=== PATIENT | male | born 1960 | race Caucasian/White ===

== ENCOUNTER 2021-05-09 08:23 | Outpatient (CLI) | payer OTHER, SELFPAY ==
[2021-05-09 08:59] LABS: Basophils Absolute Auto 0.1 K/mm3 (0.0-0.1); Basophils Percent Auto 1.3 % (0.2-1.2); Eosinophils Absolute Auto 0.1 K/mm3 (0-0.3); Eosinophils Percent Auto 2.2 % (0-4.4); Hematocrit 45.2 % (42.0-52.0); Hemoglobin 15.4 g/dL (14.0-18.0); Immature Granulocyte Absolute 0.02 K/mm3 (0.00-0.031); Immature Granulocyte Percent A 0.3 % (0-0.5); Lymphocytes Absolute Auto 1.47 K/mm3 (0.9-3.2); Lymphocytes Percent Auto 24.5 % (18.3-44.2); Mean Corpuscular HGB Conc 34.1 g/dl (32-36); Mean Corpuscular Hemoglobin 32.6 pg (26-34); Mean Corpuscular Volume 95.8 fl (80-100); Mean Platelet Volume 10.2 fl (7.4-10.4); Monocytes Absolute Auto 0.6 K/mm3 (0.1-0.6); Monocytes Percent Auto 9.3 % (2.6-8.5); Neutrophils Absolute Auto 3.7 K/mm3 (1.3-6.7); Neutrophils Percent Auto 62.4 % (45.5-73.1); Platelet Count Result 277 k/mm3 (150-375); Red Blood Count 4.72 M/mm3 (4.6-6.20)
[2021-05-09 09:19] LABS: LDL Cholesterol Direct 91 mg/dL
[2021-05-09 09:26] LABS: Alanine Aminotransferase 35 U/L (4-50); Albumin Level 4.5 g/dL (3.5-5.1); Alkaline Phosphatase 47 U/L (38-126); Anion Gap 9 mmol/L (8-16); Aspartate Amino Transferase 39 U/L (17-59); Bilirubin,Total 1.7 mg/dL (0.2-1.3); Blood Urea Nitrogen 17 mg/dL (9-20); Calcium 9.1 mg/dL (8.4-10.2); Carbon Dioxide 21 mmol/L (22-30); Chloride 108 mmol/L (98-107); Cholesterol 166 mg/dL (0-200); Estimated Glomerular Filt Rate > 60; Glucose 102 mg/dL (65-110); HDL Direct 43 mg/dL; Potassium 4.9 mmol/L (3.4-5.0); Sodium 138 mmol/L (137-145); Triglycerides 115 mg/dL (<150)
[2021-05-13 19:55] LABS: Homocysteine 15.5 umol/L (<11.4)
== END 2021-05-09 08:24 | disposition home or self-care (01) ==
PROVIDERS: PCP Internal Medicine; Visit Provider Internal Medicine
DX: I10 Essential (primary) hypertension (principal); R79.89 Other specified abnormal findings of blood chemistry; E78.2 Mixed hyperlipidemia
CPT/HCPCS: 36415; 80053; 80061; 83090; 85025

== ENCOUNTER 2021-10-29 08:23 | Outpatient (CLI) | payer OTHER, SELFPAY ==
[2021-10-29 08:55] LABS: Hemoglobin A1C 5.2 % (<5.7)
[2021-10-29 09:27] LABS: Alanine Aminotransferase 31 U/L (4-50); Albumin Level 4.6 g/dL (3.5-5.1); Alkaline Phosphatase 60 U/L (38-126); Anion Gap 11 mmol/L (8-16); Aspartate Amino Transferase 28 U/L (17-59); Bilirubin,Total 1.9 mg/dL (0.2-1.3); Blood Urea Nitrogen 14 mg/dL (9-20); Calcium 9.3 mg/dL (8.4-10.2); Carbon Dioxide 27 mmol/L (22-30); Chloride 102 mmol/L (98-107); Cholesterol 220 mg/dL (0-200); Estimated Glomerular Filt Rate 57; Glucose 123 mg/dL (65-110); HDL Direct 56 mg/dL; Potassium 4.8 mmol/L (3.4-5.0); Sodium 140 mmol/L (137-145); Triglycerides 108 mg/dL (<150)
[2021-10-29 09:38] LABS: LDL Cholesterol Direct 127 mg/dL
[2021-10-29 10:26] LABS: Free T4 Free Thyroxine 0.93 ng/mL (0.78-2.19)
== END 2021-10-29 08:24 | disposition home or self-care (01) ==
PROVIDERS: PCP Internal Medicine; Visit Provider Internal Medicine
DX: Z51.81 Encounter for therapeutic drug level monitoring (principal); Z79.899 Other long term (current) drug therapy; Z83.3 Family history of diabetes mellitus; I10 Essential (primary) hypertension
CPT/HCPCS: 36415; 80053; 80061; 83036; 84439; 84443

== ENCOUNTER 2021-12-26 00:47 | Day surgery (SDC) | payer OTHER, SELFPAY ==
[2021-12-19 14:06] VITALS: BMI 30.9
[2021-12-26 11:49] VITALS: BP 132/88; PULSE 67; RESP 16; TEMP 36.1; O2SAT 97; BMI 31.2
[2021-12-26] MEDS: LACTATED RINGERS 1,000 ML 150 ML IV CONT (12:02)
--- NOTE | 2021-12-26 12:10 | PM.HPGS ---
History of Present Illness History of Present Illness Consent: Risks, benefits, and alternatives have been discussed and questions answered. Patient agrees to proceed with procedure. Chief complaint: neoplasm screening Narrative: Polo Acharya is a 61 year old male Referred for colon cancer screening. It has been 10 years since his last colonoscopy Review of Systems Review of Systems: All systems reviewed & are unremarkable except as noted in HPI and below PMFSH Past Medical History Medical History Anxiety Benign essential hypertension BMI 32.0-32.9,adult BMI 33.0-33.9,adult Colon cancer screening Elevated fasting glucose Elevated homocysteine Encounter for long-term current use of medication Encounter for preventive health examination Encounter for routine adult health examination without abnormal findings Encounter for special screening examination for neoplasm of prostate Encounter to establish care Family history of diabetes mellitus First degree AV block Follow up Hyperlipidemia On residential drug therapy Social History Social History Smoking status: Never smoker Alcohol intake: current Drinks per week: 3 Alcohol use details: Socially Substance use: never Substance use type: does not use Living arrangements: with family Spiritual care concerns: No Meds Home Medications and Allergies Home Medications Medication Instructions Recorded Confirmed Type bupropion HCl 150 mg 24 hr tablet, 150 mg PO QAM #90 tablet 09/19/21 12/19/21 Rx extended release levomefolate 15 mg-algal oil 1 cap PO DAILY #90 cap 09/19/21 12/19/21 Rx 90.314 mg capsule valsartan 320 mg tablet 320 mg PO DAILY #90 tablet 09/19/21 12/19/21 Rx amlodipine 5 mg tablet 5 mg PO DAILY #90 tablet 11/03/21 12/19/21 Rx mecobalamin (vitamin B12) 1,000 1,000 mcg SUBLINGUAL DAILY #90 11/03/21 12/19/21 Rx mcg disintegrating tablet tablet,sublingual Allergies Allergy/AdvReac Type Severity Reaction Status Date / Time No Known Allergies Allergy Verified 12/26/21 11:39 Vital Signs Vital Signs - 24 hr 12/26/21 11:49 Temperature 36.1 C L Pulse Rate 67 Respiratory Rate 16 Blood Pressure 132/88 Pulse Oximetry 97 Exam Resp: Auscultation: clear to auscultation bilaterally Cardio: Rate: regular rate Rhythm: regular rhythm GI: GI Palp: Yes Soft to palpation and No Tenderness to palpation present (GI) Assessment and Plan Assessment and plan (1) Colon cancer screening: Code(s): Z12.11 - Encounter for screening for malignant neoplasm of colon Status: Acute Assessment and Plan: Colonoscopy with possible biopsy or polypectomy or cautery or injection of substances.
--- NOTE | 2021-12-26 12:36 | P.PNAN_ITS ---
Anes - Initial Pre Proc Eval Procedure: Operation Date: 12/26/21 13:00 Proposed Procedures p Screening Colonoscopy - Neeraj Contreras MD Date/Time: 12/26/21 12:36 Surgeon: Neeraj Contreras MD Pre Op Diagnosis: neoplasm screening Patient Data Age: 61 Gender: M Height: 1.75 m Weight: 96.1 kg Last Vital Signs Temp 97 F L 12/26/21 11:49 Pulse 67 12/26/21 11:49 Resp 16 12/26/21 11:49 BP 132/88 12/26/21 11:49 Pulse Ox 97 12/26/21 11:49 Allergies Allergy/AdvReac Type Severity Reaction Status Date / Time No Known Allergies Allergy Verified 12/26/21 11:39 Home Medications Medication Instructions Recorded Confirmed Type bupropion HCl 150 mg 24 hr tablet, 150 mg PO QAM #90 tablet 09/19/21 12/19/21 Rx extended release levomefolate 15 mg-algal oil 1 cap PO DAILY #90 cap 09/19/21 12/19/21 Rx 90.314 mg capsule valsartan 320 mg tablet 320 mg PO DAILY #90 tablet 09/19/21 12/19/21 Rx amlodipine 5 mg tablet 5 mg PO DAILY #90 tablet 11/03/21 12/19/21 Rx mecobalamin (vitamin B12) 1,000 1,000 mcg SUBLINGUAL DAILY #90 11/03/21 12/19/21 Rx mcg disintegrating tablet tablet,sublingual Patient hx anesthesia problems: none Family hx anesthesia problems: none Results Review: All pre-operative results and documents have been reviewed as part of the pre-operative evaluation. [facility] Past Medical History Medical History Anxiety Benign essential hypertension BMI 32.0-32.9,adult BMI 33.0-33.9,adult Colon cancer screening Elevated fasting glucose Elevated homocysteine Encounter for long-term current use of medication Encounter for preventive health examination Encounter for routine adult health examination without abnormal findings Encounter for special screening examination for neoplasm of prostate Encounter to establish care Family history of diabetes mellitus First degree AV block Follow up Hyperlipidemia On prison drug therapy Social History Social History Smoking status: Never smoker Alcohol intake: current Drinks per week: 3 Alcohol use details: Socially Substance use: never Substance use type: does not use Living arrangements: with family Spiritual care concerns: No Anes - Eval Final PreProcedure Day of Procedure 12/26/21 12:36 Patient weight: obese Heart: regular rate and rhythm Lungs: clear to auscultation Airway: Mallampati scale class II Neurological: alert and oriented Last oral intake: >/= 8 hours ASA classification: II Emergent: no Anesthetic plan: proceed Anesthesia type and monitoring: general GIVS and standard monitoring Results Review: All pre-operative results and documents have been reviewed as part of the pre-operative evaluation. Informed Consent: The patient's anesthetic plan and its attendant risks and benefits were discussed with the patient/family/POA. Questions were solicited and answers provided to the satisfaction of the patient/family/POA.
[2021-12-26 12:57] VITALS: BP 106/67; PULSE 59; RESP 20; O2SAT 97
[2021-12-26 13:07] VITALS: BP 122/70; PULSE 58; RESP 19; O2SAT 98
[2021-12-26 13:17] VITALS: BP 138/77; PULSE 60; RESP 20; O2SAT 98
--- NOTE | 2021-12-26 13:35 | SUR.PHASEII ---
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
== END 2021-12-26 14:00 | disposition home or self-care (01) ==
PROVIDERS: PCP Internal Medicine; Visit Provider Internal Medicine Gastroenterology
PROC: 0DJD8ZZ Inspection of Lower Intestinal Tract, Via Natural or Artificial Opening Endoscopic (ICD-10-PCS; CPT 45378; principal; 2021-12-26 13:00)
DX: Z12.11 Encounter for screening for malignant neoplasm of colon (principal); K57.30 Diverticulosis of large intestine without perforation or abscess without bleeding; I10 Essential (primary) hypertension; E78.5 Hyperlipidemia, unspecified; F41.9 Anxiety disorder, unspecified; E66.9 Obesity, unspecified; Z68.31 Body mass index [BMI] 31.0-31.9, adult
CPT/HCPCS: 45378; J2001; J2704; J7120

== ENCOUNTER 2022-03-20 07:39 | Outpatient (CLI) | payer OTHER, SELFPAY ==
[2022-03-20 08:06] LABS: Basophils Absolute Auto 0.1 K/mm3 (0.0-0.1); Basophils Percent Auto 1.6 % (0.2-1.2); Eosinophils Absolute Auto 0.2 K/mm3 (0-0.3); Eosinophils Percent Auto 2.7 % (0-4.4); Hematocrit 46.6 % (42.0-52.0); Hemoglobin 16.3 g/dL (14.0-18.0); Immature Granulocyte Absolute 0.02 K/mm3 (0.00-0.031); Immature Granulocyte Percent A 0.3 % (0-0.5); Lymphocytes Percent Auto 27.1 % (18.3-44.2); Mean Corpuscular Hemoglobin 32.6 pg (26-34); Mean Corpuscular Volume 93.2 fl (80-100); Mean Platelet Volume 9.9 fl (7.4-10.4); Monocytes Absolute Auto 0.6 K/mm3 (0.1-0.6); Monocytes Percent Auto 9.4 % (2.6-8.5); Neutrophils Absolute Auto 3.7 K/mm3 (1.3-6.7); Neutrophils Percent Auto 58.9 % (45.5-73.1); Platelet Count Result 267 k/mm3 (150-375); Red Cell Distribution Width 12.2 % (11.5-14.5); White Blood Count 6.3 K/mm3 (4.5-10.0)
[2022-03-20 09:55] LABS: Free T4 Free Thyroxine 1.14 ng/mL (0.78-2.19)
[2022-03-20 10:31] LABS: Alanine Aminotransferase 28 U/L (6-50); Albumin Level 4.4 g/dL (3.5-5.1); Alkaline Phosphatase 54 U/L (38-126); Anion Gap 6 mmol/L (8-16); Aspartate Amino Transferase 26 U/L (17-59); Bilirubin,Total 1.2 mg/dL (0.2-1.3); Blood Urea Nitrogen 16 mg/dL (9-20); Calcium 8.6 mg/dL (8.4-10.2); Carbon Dioxide 25 mmol/L (22-30); Chloride 107 mmol/L (98-107); Cholesterol 194 mg/dL (0-200); Estimated Glomerular Filt Rate > 60; Glucose 98 mg/dL (65-110); HDL Direct 46 mg/dL; Potassium 4.2 mmol/L (3.4-5.0); Sodium 138 mmol/L (137-145); Triglycerides 72 mg/dL (<150)
[2022-03-20 10:42] LABS: LDL Cholesterol Direct 120 mg/dL
[2022-03-20 11:02] LABS: Prostate Specific Antigen 2.5 ng/mL (< OR = 4.0)
[2022-03-20 11:11] LABS: Hemoglobin A1C 4.9 % (<5.7)
== END 2022-03-20 07:40 | disposition home or self-care (01) ==
LOC: ANHLAB 07:42
PROVIDERS: PCP Internal Medicine; Visit Provider Internal Medicine
DX: Z12.5 Encounter for screening for malignant neoplasm of prostate (principal); Z51.81 Encounter for therapeutic drug level monitoring; Z79.899 Other long term (current) drug therapy
CPT/HCPCS: 36415; 80053; 80061; 83036; 84153; 84439; 84443; 85025; G0103

== ENCOUNTER 2022-08-07 09:36 | Outpatient (CLI) | payer OTHER, SELFPAY ==
[2022-08-07 10:21] LABS: Alanine Aminotransferase 27 U/L (6-50); Albumin Level 4.6 g/dL (3.5-5.1); Alkaline Phosphatase 52 U/L (38-126); Anion Gap 12 mmol/L (8-16); Aspartate Amino Transferase 22 U/L (17-59); Bilirubin,Total 2.1 mg/dL (0.2-1.3); Blood Urea Nitrogen 17 mg/dL (9-20); Carbon Dioxide 25 mmol/L (22-30); Chloride 103 mmol/L (98-107); Cholesterol 176 mg/dL (0-200); Estimated Glomerular Filt Rate 56; Glucose 97 mg/dL (65-110); HDL Direct 37 mg/dL; Potassium 3.8 mmol/L (3.4-5.0); Sodium 140 mmol/L (137-145); Triglycerides 140 mg/dL (<150)
[2022-08-07 10:32] LABS: LDL Cholesterol Direct 106 mg/dL
[2022-08-12 09:26] LABS: Testosterone Total 524 ng/dL (250-1100)
[2022-08-13 07:07] LABS: Apolipoprotein B 97 mg/dL (<90)
== END 2022-08-07 09:37 | disposition home or self-care (01) ==
PROVIDERS: PCP Internal Medicine; Visit Provider Internal Medicine
DX: E78.2 Mixed hyperlipidemia (principal); I10 Essential (primary) hypertension; R53.83 Other fatigue; Z79.899 Other long term (current) drug therapy
CPT/HCPCS: 36415; 80053; 80061; 82172; 84403

== ENCOUNTER 2022-08-14 08:43 | Outpatient (CLI) | payer OTHER, SELFPAY ==
--- NOTE | ~2022-08-14 | XR_ITS ---
EXAMINATION: XR ankle LT min 3V DATE: 08/14/2022 09:07 INDICATION: Left ankle pain. TECHNIQUE: 3 views of left ankle standing were obtained. COMPARISON: None. FINDINGS: Bone alignment is normal. No fracture. There is mild osteoarthritis of some of the midfoot joints. IMPRESSION: 1. Mild midfoot osteoarthritis. Reviewed, dictated and finalized at location A.
--- NOTE | ~2022-08-14 | XR_ITS ---
XR shoulder LT min 2V 08/14/2022 09:07 Indication: Left shoulder pain Procedure: 4 views left shoulder Comparison: No prior studies for comparison. Findings: There is anatomic alignment. No fracture, subluxation or dislocation. No significant soft t issue abnormality. No foreign bodies. Impression: 1: No significant bone or joint abnormality. Reviewed, dictated and finalized at location B. Impression: 1: No significant bone or joint abnormality.
== END 2022-08-14 08:44 | disposition home or self-care (01) ==
PROVIDERS: PCP Internal Medicine; Visit Provider Internal Medicine
DX: M25.512 Pain in left shoulder (principal); M25.572 Pain in left ankle and joints of left foot; M19.072 Primary osteoarthritis, left ankle and foot
CPT/HCPCS: 73030; 73610

== ENCOUNTER 2022-11-25 08:05 | Outpatient (CLI) | payer OTHER, SELFPAY ==
--- NOTE | 2022-12-15 19:27 | WPDSLEEPSTUD ---
Sleep Study Date of Study: 11/25/22 Ordering Provider: Humberto Lorenz MD Interpreting Physician: Azra Alcantara MD Sleep Study Type: Polysomnogram Height: 1.75 m Weight: 97.522 kg Body Mass Index: 31.7 Neck Circumference (inches): 17 [place]: 4 Reason for Sleep Study Nighttime awakenings at 3:00 a.m., anxiety Sleep History Polo Acharya is a 62-year-old man who has problems maintaning sleep throughout the night, waking up around 3:00 a.m. most nights. After this he is unable to return to sleep. He has some anxiety associated with these awakenings. 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 He does not complain of feeling short of breath when he wakes at night. He does not awaken at night with heartburn, belching or coughing. He rarely snores and rarely is is loud enough that others complain about it. He occasionally has trouble sleeping with a cold. Only rarely does he gasps for breath at night. He rarely has breathing problems at night observed by others. He does not sweat excessively at night. He does not notice his heart pounding or beating irregularly at night. He does not fall asleep during the day, does not fall asleep involuntarily or while driving. He does not have loss of muscle tone with strong emotion or have daytime difficulties due to excessive sleepiness. 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 He does not feel paralyzed on waking or falling asleep nor does he have vivid dreamlike scenes on waking or falling asleep. He does not feel afraid to go to sleep. He does not have nightmares. He rarely remembers his dreams. He frequently has racing thoughts. He occasionally has sadness or depression. He constantly has anxiety, has a diagnosis of generalized anxiety disorder. He frequently has muscular tension. He does not notice parts of his body jerking, does not kick at night and does not have crawling or aching feelings in his legs. He does not have any kind of leg pain at night. He denies morning jaw pain and does night grinding his teeth at night. He does not have pain during the day and is not awakened by pain at night. He rarely wakes up feeling stiff in the morning rarely wakes up with sore achy muscles and rarely wakes up with pain in the neck and spine. He has fatigue. His normal bedtime is 10:00 p.m. falling asleep immediately, waking 2-3 times at night, persistently waking at 3 in the morning and staying awake. He wakes for the day between 3 and 4:00 a.m.. His weekend schedule is the same. He estimates getting 4-5 hours of sleep at night. He does not nap during the day. A short nap is not refreshing. He does not perform physical exercise before bed or watch television before bed. On occasion, he awakens feeling refreshed. He rarely has excessive daytime sleepiness. He does not have memory or concentration problems, problems with his job related to sleepiness or problems with sexual function. He feels better in the morning compared to other times of day. He reports a weight gain of 10-15 pounds in the last year. Habits: Never smoked tobacco. Caffeine 5 diet Cokes per day. Alcohol 1 glass of wine a day. No recreational substances. [facility] Past Medical History Medical History Anxiety Benign essential hypertension BMI 32.0-32.9,adult BMI 33.0-33.9,adult Colon cancer screening Elevated fasting glucose Elevated homocysteine Encounter for long-term current use of medication Encounter for preventive health examination Encounter for routine adult health examination with abnormal findings Encounter for routine adult health examination without abnormal findings Encounter for special screening examination for neoplasm of prostate Encounter to establish care Family history of diabetes mellitus First degree AV block Follow up Hyperlipidemia Hypersomnolence Left ankle pain Left foot pain Left knee pain On [facility]
[2022-12-15 19:36] VITALS: BMI 31.7
== END 2022-11-26 07:03 | disposition home or self-care (01) ==
LOC: ANHCSM 08:06
PROVIDERS: PCP Internal Medicine; Visit Provider Internal Medicine
DX: G47.10 Hypersomnia, unspecified (principal); R53.83 Other fatigue; Z01.89 Encounter for other specified special examinations
CPT/HCPCS: 95810

== ENCOUNTER 2022-12-24 07:50 | Outpatient (CLI) | payer OTHER, SELFPAY ==
[2022-12-24 08:21] LABS: Basophils Absolute Auto 0.1 K/mm3 (0.0-0.1); Eosinophils Absolute Auto 0.2 K/mm3 (0-0.3); Eosinophils Percent Auto 2.7 % (0-4.4); Hematocrit 51.5 % (42.0-52.0); Hemoglobin 17.9 g/dL (14.0-18.0); Immature Granulocyte Absolute 0.02 K/mm3 (0.00-0.031); Immature Granulocyte Percent A 0.3 % (0-0.5); Lymphocytes Absolute Auto 1.44 K/mm3 (0.9-3.2); Mean Corpuscular HGB Conc 34.8 g/dl (32-36); Mean Corpuscular Hemoglobin 32.7 pg (26-34); Mean Platelet Volume 9.8 fl (7.4-10.4); Monocytes Absolute Auto 0.6 K/mm3 (0.1-0.6); Monocytes Percent Auto 9.3 % (2.6-8.5); Neutrophils Absolute Auto 3.7 K/mm3 (1.3-6.7); Neutrophils Percent Auto 61.7 % (45.5-73.1); Platelet Count Result 283 k/mm3 (150-375); Red Blood Count 5.48 M/mm3 (4.6-6.20); Red Cell Distribution Width 12.6 % (11.5-14.5)
[2022-12-24 08:37] LABS: Alanine Aminotransferase 30 U/L (6-50); Albumin Level 4.6 g/dL (3.5-5.1); Alkaline Phosphatase 70 U/L (38-126); Anion Gap 8 mmol/L (8-16); Aspartate Amino Transferase 24 U/L (17-59); Bilirubin,Total 1.7 mg/dL (0.2-1.3); Blood Urea Nitrogen 16 mg/dL (9-20); Calcium 8.4 mg/dL (8.4-10.2); Carbon Dioxide 24 mmol/L (22-30); Chloride 107 mmol/L (98-107); Cholesterol 200 mg/dL (0-200); Estimated Glomerular Filt Rate 52; Glucose 114 mg/dL (65-110); HDL Direct 50 mg/dL; Potassium 4.1 mmol/L (3.4-5.0); Sodium 139 mmol/L (137-145); Triglycerides 93 mg/dL (<150)
[2022-12-24 08:49] LABS: LDL Cholesterol Direct 122 mg/dL
[2022-12-24 08:53] LABS: Hemoglobin A1C 4.8 % (<5.7)
[2022-12-24 08:55] LABS: Free T4 Free Thyroxine 1.19 ng/mL (0.78-2.19)
== END 2022-12-24 07:51 | disposition home or self-care (01) ==
LOC: ANHLAB 07:51
PROVIDERS: PCP Internal Medicine; Visit Provider Internal Medicine
DX: E78.2 Mixed hyperlipidemia (principal); Z13.29 Encounter for screening for other suspected endocrine disorder; Z79.899 Other long term (current) drug therapy; I10 Essential (primary) hypertension; R73.01 Impaired fasting glucose
CPT/HCPCS: 36415; 80053; 80061; 83036; 84439; 84443; 85025

== ENCOUNTER 2023-05-11 07:16 | Outpatient (CLI) | payer OTHER, SELFPAY ==
[2023-05-11 07:49] LABS: Alanine Aminotransferase 34 U/L (6-50); Albumin Level 4.4 g/dL (3.5-5.1); Alkaline Phosphatase 56 U/L (38-126); Anion Gap 10 mmol/L (8-16); Aspartate Amino Transferase 30 U/L (17-59); Bilirubin,Total 1.3 mg/dL (0.2-1.3); Blood Urea Nitrogen 16 mg/dL (9-20); Calcium 8.6 mg/dL (8.4-10.2); Carbon Dioxide 21 mmol/L (22-30); Chloride 108 mmol/L (98-107); Cholesterol 200 mg/dL (0-200); Estimated Glomerular Filt Rate 52; Glucose 119 mg/dL (65-110); HDL Direct 41 mg/dL; Potassium 4.1 mmol/L (3.4-5.0); Sodium 139 mmol/L (137-145); Triglycerides 205 mg/dL (<150)
[2023-05-11 07:54] LABS: Basophils Absolute Auto 0.1 K/mm3 (0.0-0.1); Basophils Percent Auto 1.1 % (0.2-1.2); Eosinophils Absolute Auto 0.2 K/mm3 (0-0.3); Eosinophils Percent Auto 2.9 % (0-4.4); Hematocrit 45.4 % (42.0-52.0); Hemoglobin 15.7 g/dL (14.0-18.0); Immature Granulocyte Absolute 0.02 K/mm3 (0.00-0.031); Immature Granulocyte Percent A 0.4 % (0-0.5); Lymphocytes Absolute Auto 1.29 K/mm3 (0.9-3.2); Lymphocytes Percent Auto 23.5 % (18.3-44.2); Mean Corpuscular HGB Conc 34.6 g/dl (32-36); Mean Corpuscular Hemoglobin 32.8 pg (26-34); Mean Platelet Volume 9.8 fl (7.4-10.4); Monocytes Absolute Auto 0.5 K/mm3 (0.1-0.6); Monocytes Percent Auto 9.6 % (2.6-8.5); Neutrophils Absolute Auto 3.4 K/mm3 (1.3-6.7); Neutrophils Percent Auto 62.5 % (45.5-73.1); Platelet Count Result 304 k/mm3 (150-375); Red Blood Count 4.78 M/mm3 (4.6-6.20); Red Cell Distribution Width 12.7 % (11.5-14.5); White Blood Count 5.5 K/mm3 (4.5-10.0)
[2023-05-11 07:59] LABS: LDL Cholesterol Direct 109 mg/dL
[2023-05-11 08:40] LABS: Free T4 Free Thyroxine 1.03 ng/mL (0.78-2.19); Vitamin D 25 Hydroxy 31.4 ng/mL
[2023-05-11 09:01] LABS: Prostate Specific Antigen 3.4 ng/mL (< OR = 4.0)
[2023-05-11 09:49] LABS: Hemoglobin A1C 5.1 % (<5.7)
== END 2023-05-11 07:17 | disposition home or self-care (01) ==
LOC: ANHLAB 07:18
PROVIDERS: PCP Internal Medicine; Visit Provider Internal Medicine
DX: E78.5 Hyperlipidemia, unspecified (principal); I10 Essential (primary) hypertension; R73.01 Impaired fasting glucose; E55.9 Vitamin D deficiency, unspecified; Z13.29 Encounter for screening for other suspected endocrine disorder; Z79.899 Other long term (current) drug therapy; Z12.5 Encounter for screening for malignant neoplasm of prostate
CPT/HCPCS: 36415; 80053; 80061; 82306; 83036; 84153; 84439; 84443; 85025; G0103

== ENCOUNTER 2023-08-16 14:57 | Emergency (ER) | payer OTHER, SELFPAY ==
--- NOTE | ~2023-08-16 | XR_ITS ---
EXAMINATION: XR chest 1V 08/16/2023 15:31 INDICATION: Chest pain PROCEDURE: PA view of the chest COMPARISON: No prior studies for comparison. FINDINGS: The lungs are clear. The cardiomediastinal silhouette is within normal limits. There are no pleural effusions. There is no pneumothorax suspected. There is left basilar atelectasis. IMPRESSION: 1: NO ACUTE CARDIOPULMONARY DISEASE. Reviewed, dictated and finalized at location A.
--- NOTE | 2023-08-16 15:00 | ECG_ITS ---
Measurements Intervals [place] Rate: 75 P: 38 KS: 191 QRS: 22 QRSD: 105 T: 17 QT: 365 QTc: 410 Interpretive Statements SINUS RHYTHM POSSIBLE INFERIOR MYOCARDIAL INFARCTION , PROBABLY OLD [30 ms Q WAVE IN II/aVF] NO PREVIOUS ECG AVAILABLE FOR COMPARISON Electronically Signed On 08-17-2023 11:22:36 CDT by Jonah Maciel M.D.
--- NOTE | 2023-08-16 15:02 | ED.GENADULT ---
HPI - General Adult General Chief complaint: Chest Pain Stated complaint: indigestion, ORDONEZ, chest tightness, ?stress related Time Seen by Provider: 08/16/23 20:10 History of Present Illness HPI narrative: Polo Achayra is a 63 y/o male with PMhx of HTN/ HLD who presents with reports of mid chest pain across his chest with a little bit radiating down his left arm that has been ongoing for about 24 hours now. He called his PCP and was instructed to come to the ED. No NC/ Cardiac stents. Related Data Home Medications Medication Instructions Recorded Confirmed cholecalciferol (vitamin D3) 50 50 mcg PO DAILY 05/11/23 08/17/23 mcg (2,000 unit) capsule Allergies Allergy/AdvReac Type Severity Reaction Status Date / Time shellfish derived AdvReac Diarrhea Verified 08/16/23 20:46 [facility] Past Medical History Medical History (Updated 08/17/23 @ 12:03 by Quita Heredia [facility]) Anxiety Anxiety with depression Benign essential hypertension BMI 32.0-32.9,adult BMI 33.0-33.9,adult BMI 34.0-34.9,adult Chest tightness Colon cancer screening Elevated fasting glucose Elevated homocysteine Encounter for long-term current use of medication Encounter for preventive health examination Encounter for routine adult health examination with abnormal findings Encounter for routine adult health examination without abnormal findings Encounter for special screening examination for neoplasm of prostate Encounter to establish care Family history of diabetes mellitus First degree AV block Follow up Headache Hyperlipidemia Hypersomnolence Insomnia Left ankle pain Left foot pain Left knee pain Medial epicondylitis of right elbow On intermediate drug therapy Pain of left deltoid Rash Shoulder pain Vitamin D deficiency Social History Social History Smoking status: Never smoker Second hand tobacco smoke exposure: No Alcohol intake: current Drinks per week: 3 Alcohol use details: Socially Substance use: never Substance use type: does not use Lack of Transportation: No Lack of Food: Never True Current Housing: I Have Housing Concerned About Future Housing: No Difficulty Paying Gas/Electric Bills: No Difficulty Paying for Meds: No Currently Unemployed: No Education: Master's Degree or Higher Difficulty w/ Childcare or Family Care: YES Living arrangements: with family Gender identity (if verbalized by the patient): Male Spiritual care concerns: No Course Vital Signs Vital signs: Vital Signs Temperature 36.4 C 08/16/23 15:12 Pulse Rate 72 08/16/23 15:12 Respiratory Rate 16 08/16/23 15:12 Blood Pressure 131/71 08/16/23 15:12 Pulse Oximetry 98 08/16/23 15:12 Oxygen Delivery Room Air 08/16/23 15:12 Temperature 36.4 C 08/16/23 15:12 Pulse Rate 55 L 08/16/23 22:36 Respiratory Rate 18 08/16/23 22:36 Blood Pressure 119/88 08/16/23 22:36 Pulse Oximetry 99 08/16/23 22:36 Oxygen Delivery Room Air 08/16/23 15:12 Medical Decision Making Vital Signs Vital Signs: Vital Signs Temperature 36.4 C 08/16/23 15:12 Pulse Rate 72 08/16/23 15:12 Respiratory Rate 16 08/16/23 15:12 Blood Pressure 131/71 08/16/23 15:12 Pulse Oximetry 98 08/16/23 15:12 Oxygen Delivery Room Air 08/16/23 15:12 Temperature 36.4 C 08/16/23 15:12 Pulse Rate 55 L 08/16/23 22:36 Respiratory Rate 18 08/16/23 22:36 Blood Pressure 119/88 08/16/23 22:36 Pulse Oximetry 99 08/16/23 22:36 Oxygen Delivery Room Air 08/16/23 15:12 Lab Data 08/16/23 15:08 08/16/23 15:08 Labs: Lab Results 08/16/23 08/16/23 Range/Units 15:08 20:52 WBC 7.5 (4.5-10.0) K/mm3 RBC 4.88 (4.6-6.20) M/mm3 Hgb 15.8 (14.0-18.0) g/dL Hct 46.1 (42.0-52.0) % MCV 94.5 (80-100) fl MCH 32.4 (26-34) pg MCHC 34.3 (32-36) g/dl RDW 12.0 (11.5-14.5) % Plt Count 30
[2023-08-16 15:12] VITALS: BP 131/71; PULSE 72; RESP 16; TEMP 36.4; O2SAT 98
[2023-08-16 15:17] LABS: Basophils Absolute Auto 0.1 K/mm3 (0.0-0.1); Basophils Percent Auto 1.1 % (0.2-1.2); Eosinophils Absolute Auto 0.1 K/mm3 (0-0.3); Eosinophils Percent Auto 1.6 % (0-4.4); Hematocrit 46.1 % (42.0-52.0); Hemoglobin 15.8 g/dL (14.0-18.0); Immature Granulocyte Absolute 0.02 K/mm3 (0.00-0.031); Immature Granulocyte Percent A 0.3 % (0-0.5); Lymphocytes Absolute Auto 1.42 K/mm3 (0.9-3.2); Lymphocytes Percent Auto 18.9 % (18.3-44.2); Mean Corpuscular HGB Conc 34.3 g/dl (32-36); Mean Corpuscular Hemoglobin 32.4 pg (26-34); Mean Corpuscular Volume 94.5 fl (80-100); Mean Platelet Volume 9.9 fl (7.4-10.4); Monocytes Absolute Auto 0.6 K/mm3 (0.1-0.6); Monocytes Percent Auto 8.5 % (2.6-8.5); Neutrophils Absolute Auto 5.2 K/mm3 (1.3-6.7); Neutrophils Percent Auto 69.6 % (45.5-73.1); Platelet Count Result 308 k/mm3 (150-375); Red Blood Count 4.88 M/mm3 (4.6-6.20); White Blood Count 7.5 K/mm3 (4.5-10.0)
[2023-08-16 15:28] LABS: Alanine Aminotransferase 27 U/L (6-50); Albumin Level 4.4 g/dL (3.5-5.1); Alkaline Phosphatase 49 U/L (38-126); Anion Gap 8 mmol/L (8-16); Aspartate Amino Transferase 29 U/L (17-59); Blood Urea Nitrogen 17 mg/dL (9-20); Calcium 8.8 mg/dL (8.4-10.2); Carbon Dioxide 21 mmol/L (22-30); Chloride 107 mmol/L (98-107); Estimated CRCL calculation 53 ml/min; Estimated Glomerular Filt Rate 48; Glucose 121 mg/dL (65-110); Lipase 136 U/L (23-300); Potassium 3.8 mmol/L (3.4-5.0); Sodium 136 mmol/L (137-145)
[2023-08-16 15:39] LABS: Troponin I < 0.012 ng/mL (0.000-0.034)
--- NOTE | 2023-08-16 20:10 | ED.CHESTPAIN ---
HPI - Chest Pain General Chief Complaint: Chest Pain Stated Complaint: indigestion, ORDONEZ, chest tightness, ?stress related Time Seen by Provider: 08/16/23 20:10 Source: patient Mode of arrival: ambulatory Limitations: no limitations History of Present Illness HPI narrative: Patient drove himself to the emergency room complaining of chest tightness and some discomfort at the left upper extremity started 24 hours ago. Intermittent. Usually lasts for up to few minutes and then go away. Worse with emotional stress, better when the stress goes down. Patient have a lot of stress at home lately. History of hypertension. Patient does not smoke Cigarette, drinks occasionally. History of hypertension, his father had a heart attack at age 72. Patient is physically active, not obese. Currently patient denying any symptoms except for feeling anxious all over Related Data Home Medications Medication Instructions Recorded Confirmed cholecalciferol (vitamin D3) 50 50 mcg PO DAILY 05/11/23 06/17/23 mcg (2,000 unit) capsule Allergies Allergy/AdvReac Type Severity Reaction Status Date / Time shellfish derived AdvReac Diarrhea Verified 08/16/23 20:46 Review of Systems Review of Systems: All systems reviewed & are unremarkable except as noted in HPI and below PMFSH Past Medical History Medical History Anxiety Anxiety with depression Benign essential hypertension BMI 32.0-32.9,adult BMI 33.0-33.9,adult BMI 34.0-34.9,adult Colon cancer screening Elevated fasting glucose Elevated homocysteine Encounter for long-term current use of medication Encounter for preventive health examination Encounter for routine adult health examination with abnormal findings Encounter for routine adult health examination without abnormal findings Encounter for special screening examination for neoplasm of prostate Encounter to establish care Family history of diabetes mellitus First degree AV block Follow up Hyperlipidemia Hypersomnolence Insomnia Left ankle pain Left foot pain Left knee pain Medial epicondylitis of right elbow On [facility] drug therapy Pain of left deltoid Rash Shoulder pain Vitamin D deficiency Social History Social History Smoking status: Never smoker Second hand tobacco smoke exposure: No Alcohol intake: current Drinks per week: 3 Alcohol use details: Socially Substance use: never Substance use type: does not use Lack of Transportation: No Lack of Food: Never True Current Housing: I Have Housing Concerned About Future Housing: No Difficulty Paying Gas/Electric Bills: No Difficulty Paying for Meds: No Currently Unemployed: No Education: Master's Degree or Higher Difficulty w/ Childcare or Family Care: YES Living arrangements: with family Gender identity (if verbalized by the patient): Male Spiritual care concerns: No Exam Narrative: General appearance: Well-developed, well-nourished Skin: Normal color Head: Normocephalic, nontraumatic Eyes: Clear conjunctiva ENT: Oropharynx normal, ears normal, nose normal Neck: Supple, nontender Chest and respiratory: Airway patent, no respiratory distress, no accessory muscle use Heart: Regular rate/rhythm Abdomen: Soft, nontender, no organomegaly, quiet bowel sounds Vascular: Normal peripheral pulses, normal capillary refill. 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
[2023-08-16 20:45] VITALS: BP 130/83; PULSE 58; RESP 14; O2SAT 99
[2023-08-16 21:30] LABS: Troponin I < 0.012 ng/mL (0.000-0.034)
[2023-08-16 22:36] VITALS: BP 119/88; PULSE 55; RESP 18; O2SAT 99
== END 2023-08-16 22:36 | disposition home or self-care (01) ==
PROVIDERS: Nurse Practitioner Family; Emergency Provider Emergency Medicine; PCP Internal Medicine
DX: R07.9 Chest pain, unspecified (principal); I10 Essential (primary) hypertension; E78.5 Hyperlipidemia, unspecified
CPT/HCPCS: 36415; 71045; 80053; 83690; 84484; 85025; 93005; 99284

== ENCOUNTER 2023-11-02 08:47 | Outpatient (CLI) | payer OTHER, SELFPAY ==
--- NOTE | ~2023-11-02 | XR_ITS ---
Clinical Indication: Cough PA and lateral views of the chest: Comparison: 08/16/2023 Findings: The lungs are clear, without evidence of focal consolidation or pleural effusion. Cardiome diastinal silhouette is within normal limits. Bones and soft tissues are unremarkable. Impression: Normal chest. Reviewed, dictated and finalized at [facility]. 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
--- NOTE | ~2023-11-02 | XR_ITS ---
XR sinus min 3V DATE: 11/02/2023 09:22 INDICATION: Nasal disorder TECHNIQUE: 5 views COMPARISON: None FINDINGS: The paranasal sinuses and mastoid air cells appear normally developed and aerated. There is leftward deviation of the nasal septum. The facial bones appear intact. There is anterior fusion at C5-6. There is multilevel degenerative disc disease of the cervical spine , moderate at C3-4, severe at C4-5 and C6-7. IMPRESSION: Leftward deviation of nasal septum Patent paranasal sinuses and mastoid air cells Cervical spondylosis Anterior fusion at C5-6 Reviewed, dictated and finalized at location L. NESS PLANNER
[2023-11-02 09:15] LABS: Basophils Absolute Auto 0.1 K/mm3 (0.0-0.1); Basophils Percent Auto 1.7 % (0.2-1.2); Eosinophils Absolute Auto 0.2 K/mm3 (0-0.3); Hematocrit 49.7 % (42.0-52.0); Hemoglobin 16.5 g/dL (14.0-18.0); Immature Granulocyte Absolute 0.02 K/mm3 (0.00-0.031); Immature Granulocyte Percent A 0.3 % (0-0.5); Lymphocytes Percent Auto 25.3 % (18.3-44.2); Mean Corpuscular HGB Conc 33.2 g/dl (32-36); Mean Corpuscular Hemoglobin 31.9 pg (26-34); Mean Corpuscular Volume 96.1 fl (80-100); Mean Platelet Volume 9.7 fl (7.4-10.4); Monocytes Absolute Auto 0.6 K/mm3 (0.1-0.6); Monocytes Percent Auto 9.8 % (2.6-8.5); Neutrophils Absolute Auto 3.6 K/mm3 (1.3-6.7); Neutrophils Percent Auto 59.9 % (45.5-73.1); Platelet Count Result 254 k/mm3 (150-375); Red Blood Count 5.17 M/mm3 (4.6-6.20); Red Cell Distribution Width 12.7 % (11.5-14.5); White Blood Count 5.9 K/mm3 (4.5-10.0)
[2023-11-02 09:31] LABS: Anion Gap 10 mmol/L (8-16); Blood Urea Nitrogen 17 mg/dL (9-20); Calcium 8.6 mg/dL (8.4-10.2); Carbon Dioxide 21 mmol/L (22-30); Chloride 107 mmol/L (98-107); Cholesterol 199 mg/dL (0-200); Estimated Glomerular Filt Rate > 60; Glucose 107 mg/dL (65-110); HDL Direct 47 mg/dL; Potassium 4.2 mmol/L (3.4-5.0); Sodium 138 mmol/L (137-145); Triglycerides 140 mg/dL (<150)
[2023-11-02 09:42] LABS: LDL Cholesterol Direct 114 mg/dL
[2023-11-02 10:02] LABS: Free T4 Free Thyroxine 1.13 ng/mL (0.78-2.19); Vitamin D 25 Hydroxy 48.3 ng/mL
[2023-11-04 03:49] LABS: Thyroid Peroxidase Antibodies <1 IU/mL (<9)
[2023-11-04 20:09] LABS: Apolipoprotein B 94 mg/dL (<90)
== END 2023-11-02 08:48 | disposition home or self-care (01) ==
LOC: ANHLAB 08:48
PROVIDERS: PCP Internal Medicine; Visit Provider Internal Medicine
DX: J34.2 Deviated nasal septum (principal); M43.02 Spondylolysis, cervical region; M43.22 Fusion of spine, cervical region; E78.5 Hyperlipidemia, unspecified; R53.83 Other fatigue; I10 Essential (primary) hypertension; R05.8 Other specified cough; E55.9 Vitamin D deficiency, unspecified; R06.2 Wheezing; J34.89 Other specified disorders of nose and nasal sinuses; Z86.16 Personal history of COVID-19; Z79.899 Other long term (current) drug therapy; Z13.29 Encounter for screening for other suspected endocrine disorder
CPT/HCPCS: 36415; 70220; 71046; 80048; 80061; 82172; 82306; 84439; 85025; 86376

== ENCOUNTER 2023-11-19 08:10 | Outpatient (CLI) | payer OTHER, SELFPAY ==
--- NOTE | 2023-11-19 14:48 | WPDSIXMINUTE ---
Six Minute Walk Procedure Procedure Performed Pulmonary Stress Test (6 min walk) Six Minute Walk Six Minute Walk: This is a 6 minute walk test. The test was performed and interpreted in accordance with the 2014 ERS/ATS task force guidelines. Findings: The patient's resting room air oxygen saturation measured by pulse oximetry was 98% and heart rate was 70 bpm. Patient ambulated for 610 meters and oxygen saturation remained 90 to 98%. Heart rate at the end of the study was 98 bpm. The patient did not qualify for supplemental oxygen at rest or with ambulation. There are no prior studies for comparison.
--- NOTE | 2023-11-19 14:49 | WPDPFTINT ---
PFT Procedure Performed PFT Procedure Performed Spirometry with Pre/Post Bronchodilator Plethysmography (Lung Vol) Diffusing Cap (DLCO) Flow Vol Loop PFT Interpretation This is a pulmonary function test with pre and post-bronchodilator spirometry, plethysmography and diffusing capacity. The test was performed and results interpreted in accordance with the 2019 and 2005 ATS/ERS Task Force guidelines respectively using the Global Lung Function Initiative-2012 reference equations. Patient demonstrated good effort and cooperation. Reproducibility criteria were met. The quality of the pre bronchodilator spirometry maneuver was Grade A and post bronchodilator spirometry maneuver was Grade A. Findings: Spirometry: The contour the expiratory flow tracing is normal in 1 maneuver and has a very minimal mid expiratory plateau referred to as the knee pattern in 2 of the 3 pre bronchodilator maneuvers. The contour of the expiratory tracing demonstrates a notch in all 3 of the post bronchodilator maneuvers. The contour the inspiratory flow tracing is normal. The pre bronchodilator FVC is 4.68 L, 106% predicted. The pre bronchodilator FEV1 is 3.35 L, 98% predicted. The pre bronchodilator FEV1: FVC ratio 71%. The post bronchodilator FVC is 4.66 L, representing 1% decrease. The post bronchodilator FEV1 is 3.40 L, representing a 2% increase. The post bronchodilator FEV1: FVC ratio 73%. Plethysmography: The total lung capacity is 7.04 L, 104% predicted. The functional residual capacity is 2.98 L, 85% predicted. The residual volume is 2.33 L, 106% predicted. Diffusing capacity: The diffusing capacity unadjusted for hemoglobin and carboxyhemoglobin is 28.6, 103% predicted. The diffusing capacity adjusted for alveolar volume is 4.34, 102% predicted. Impression: The contour of the expiratory flow tracing demonstrates a knee pattern in 2 of the 3 bronchodilator maneuvers and a notch in all 3 of the post bronchodilator maneuvers. The knee pattern can be a normal variant or pathologic and has been attributed to a choke point section of the bronchial tree. The normal variant is more common in younger female patients, decreases with age and is more pronounced in the post bronchodilator efforts. The pattern has also been described with kyphosis, kyphoscoliosis, central obstructing mass, and post lung transplantation. The notched pattern has been described with coughing or tracheobronchomalacia. Otherwise, the spirometry is normal without evidence of an obstructive abnormality. There is no significant improvement after inhaling a single dose of albuterol. The lung volumes are normal. The diffusing capacity is normal. There are no prior studies for comparison
== END 2023-11-19 08:11 | disposition home or self-care (01) ==
PROVIDERS: PCP Internal Medicine; Visit Provider Internal Medicine
DX: R05.8 Other specified cough (principal); Z86.16 Personal history of COVID-19
CPT/HCPCS: 94060; 94618; 94726; 94729

== ENCOUNTER 2023-12-13 07:09 | Outpatient (CLI) | payer OTHER, SELFPAY ==
--- NOTE | ~2023-12-13 | CT_ITS ---
Clinical Indication: Cough CT Scan of the Chest with Contrast: Technique: Contiguous sections were acquired throughout the chest after intravenous administration of 75 cc of Omnipaque 350. Dose reduction technique was used on this scan by utilizing automated exposu re control and iterative reconstruction technique. The dose-length product (DLP) was 463.33 mGy-cm. Findings: There is no evidence of any significant mediastinal, hilar or axillary lymphadenopathy. There is no f illing defect in the pulmonary arterial tree to suggest pulmonary embolus. There is no evidence of ao rtic dissection or aneurysm. There is no evidence of pleural or pericardial effusion. The lungs are clear. No pulmonary nodules or infiltrates are noted. Images through the upper abdomen reveal focal enhancing hepatic lesions, likely hemangiomas. Impression: No significant abnormality seen. Reviewed, dictated and finalized at [facility]. 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
[2023-12-13 07:32] LABS: Estimated Glomerular Filt Rate 48
== END 2023-12-13 07:10 | disposition home or self-care (01) ==
PROVIDERS: PCP Internal Medicine; Visit Provider Internal Medicine
DX: R05.8 Other specified cough (principal); R94.2 Abnormal results of pulmonary function studies
CPT/HCPCS: 71260; Q9967

== ENCOUNTER 2024-01-07 14:35 | Outpatient (CLI) | payer OTHER, SELFPAY ==
--- NOTE | ~2024-01-07 | US_ITS ---
EXAMINATION: US renal BI DATE: 01/07/2024 15:21 INDICATION: Chronic kidney disease TECHNIQUE: Multiple grayscale and Doppler ultrasound images of the kidneys were obtained. COMPARISON: None. FINDINGS: The right kidney measures 11 x 6.5 x 5.3 cm. The left kidney measures 11.2 x 5.3 x 4.5 cm. The kidneys demonstrate normal parenchymal echogenicity. There is no hydronephrosis. The bladder is n ormal. IMPRESSION: 1. Normal kidneys without hydronephrosis. Reviewed, dictated and finalized at location F.
== END 2024-01-07 14:36 | disposition home or self-care (01) ==
PROVIDERS: PCP Internal Medicine; Visit Provider Internal Medicine
DX: R79.89 Other specified abnormal findings of blood chemistry (principal); I12.9 Hypertensive chronic kidney disease with stage 1 through stage 4 chronic kidney disease, or unspecified chronic kidney disease; N18.9 Chronic kidney disease, unspecified
CPT/HCPCS: 76775

== ENCOUNTER 2024-01-18 07:12 | Outpatient (CLI) | payer OTHER, SELFPAY ==
[2024-01-18 07:58] LABS: Anion Gap 7 mmol/L (4-12); Blood Urea Nitrogen 20 mg/dL (9-20); Calcium 8.8 mg/dL (8.4-10.2); Carbon Dioxide 21 mmol/L (22-30); Chloride 107 mmol/L (98-107); Estimated Glomerular Filt Rate > 60; Glucose 120 mg/dL (65-110); Potassium 3.9 mmol/L (3.4-5.0); Sodium 135 mmol/L (137-145)
== END 2024-01-18 07:13 | disposition home or self-care (01) ==
LOC: ANHLAB 07:13
PROVIDERS: PCP Internal Medicine; Visit Provider Internal Medicine
DX: I12.9 Hypertensive chronic kidney disease with stage 1 through stage 4 chronic kidney disease, or unspecified chronic kidney disease (principal); N18.9 Chronic kidney disease, unspecified
CPT/HCPCS: 36415; 80048

== ENCOUNTER 2024-05-26 07:55 | Outpatient (CLI) | payer OTHER, SELFPAY ==
[2024-05-26 08:50] LABS: Basophils Absolute Auto 0.1 K/mm3 (0.0-0.1); Basophils Percent Auto 1.3 % (0.2-1.2); Eosinophils Absolute Auto 0.1 K/mm3 (0-0.3); Eosinophils Percent Auto 1.2 % (0-4.4); Hematocrit 51.2 % (42.0-52.0); Hemoglobin 17.7 g/dL (14.0-18.0); Immature Granulocyte Absolute 0.02 K/mm3 (0.00-0.031); Immature Granulocyte Percent A 0.3 % (0-0.5); Lymphocytes Absolute Auto 1.25 K/mm3 (0.9-3.2); Mean Corpuscular HGB Conc 34.6 g/dl (32-36); Mean Corpuscular Hemoglobin 32.7 pg (26-34); Mean Corpuscular Volume 94.5 fl (80-100); Mean Platelet Volume 10.4 fl (7.4-10.4); Monocytes Absolute Auto 0.5 K/mm3 (0.1-0.6); Monocytes Percent Auto 8.9 % (2.6-8.5); Neutrophils Percent Auto 67.3 % (45.5-73.1); Platelet Count Result 274 k/mm3 (150-375); Red Blood Count 5.42 M/mm3 (4.6-6.20); Red Cell Distribution Width 12.4 % (11.5-14.5); White Blood Count 5.9 K/mm3 (4.5-10.0)
[2024-05-26 08:55] LABS: Add Urine Microscopic? YES; Appearance Urine Clear (Clear); Bacteria Urine None Seen /hpf; Bilirubin Urine Negative (Negative); Blood Urine Non-Hemolyzed Trace (Negative); Color Urine Yellow (Yellow); Glucose Urine UA Negative (Negative); Ketones Urine Negative (Negative); Leukocyte Esterase Ur Negative LEU/UL (Negative); Nitrate Urine Negative (Negative); Non Pathogenic Casts 0-2; Protein Urine 1+ mg/dL (Negative); Specific Grav Ur 1.025 (1.001-1.035); Squamous Epithelial Cell Urine None Seen /hpf (Few); WBC Urine 0-5 /hpf (0-3); pH Urine 5.5 (5.0-9.0)
[2024-05-26 09:16] LABS: Alanine Aminotransferase 23 U/L (6-50); Albumin Level 4.5 g/dL (3.5-5.1); Alkaline Phosphatase 60 U/L (38-126); Anion Gap 10 mmol/L (4-12); Aspartate Amino Transferase 22 U/L (17-59); Blood Urea Nitrogen 19 mg/dL (9-20); Carbon Dioxide 26 mmol/L (22-30); Chloride 104 mmol/L (98-107); Cholesterol 205 mg/dL (0-200); Estimated Glomerular Filt Rate 51; Glucose 108 mg/dL (65-110); HDL Direct 48 mg/dL; Potassium 4.3 mmol/L (3.4-5.0); Sodium 140 mmol/L (137-145); Triglycerides 80 mg/dL (<150)
[2024-05-26 09:29] LABS: LDL Cholesterol Direct 139 mg/dL
[2024-05-26 10:15] LABS: Free T4 Free Thyroxine 1.12 ng/mL (0.78-2.19)
[2024-05-26 20:25] LABS: Hemoglobin A1C 5.2 % (<5.7)
== END 2024-05-26 07:56 | disposition home or self-care (01) ==
LOC: ANHLAB 07:57
PROVIDERS: PCP Internal Medicine; Visit Provider Internal Medicine
DX: E78.5 Hyperlipidemia, unspecified (principal); I10 Essential (primary) hypertension; R73.01 Impaired fasting glucose; Z79.899 Other long term (current) drug therapy; Z13.29 Encounter for screening for other suspected endocrine disorder
CPT/HCPCS: 36415; 80053; 80061; 81001; 83036; 84439; 84443; 85025

== ENCOUNTER 2024-06-02 15:55 | Outpatient (CLI) | payer OTHER, SELFPAY ==
--- NOTE | ~2024-06-02 | CT_ITS ---
EXAMINATION: CT abdomen pelvis wo con DATE: 06/02/2024 16:21 INDICATION: Chronic kidney disease stage I. TECHNIQUE: Computed tomography (CT) of the abdomen and pelvis was performed without intravenous contr ast. Automated exposure control and iterative reconstruction technique were employed. The dose-length product was 1220.11 mGy-cm. COMPARISON: Chest CT 12/13/2023, ultrasound kidneys 01/07/2024 FINDINGS: The visualized portions of the lung bases demonstrate minimal atelectasis. No pleural effus ion. The heart size is normal. No pericardial effusion. There is a small sliding hiatal hernia. There is a 3.7 cm mass in left hepatic lobe that demonstrated interrupted peripheral puddling of contrast on the prior CT, consistent with a hemangioma. There is a stable 1.6 cm mass in right hepatic lobe th at demonstrated hyperenhancement on the prior CT, likely benign. There is a 2.3 cm hypodense mass in right hepatic lobe that is stable from 12/13/2023, likely benign. The spleen, gallbladder, pancreas, a drenal glands, and kidneys are normal. There is no urolithiasis. The prostate is mildly enlarged. The re is diverticulosis of the colon without evidence of diverticulitis. There are no dilated loops of b owel. The appendix is normal. There are no pathologically enlarged lymph nodes. There is no free intr aperitoneal fluid. There is moderate thoracic spondylosis and mild lumbar spondylosis. IMPRESSION: 1. Normal kidneys. 2. Liver masses, stable from 12/13/2023, likely benign. Reviewed, dictated and finalized at location A.
== END 2024-06-02 15:56 | disposition home or self-care (01) ==
LOC: ANHIMG 16:00
PROVIDERS: PCP Internal Medicine; Visit Provider Internal Medicine
DX: N18.1 Chronic kidney disease, stage 1 (principal); R16.0 Hepatomegaly, not elsewhere classified
CPT/HCPCS: 74176

== ENCOUNTER 2024-08-18 12:20 | Outpatient (CLI) | payer OTHER, SELFPAY ==
[2024-08-18 13:28] LABS: Alanine Aminotransferase 23 U/L (6-50); Albumin Level 4.5 g/dL (3.5-5.1); Alkaline Phosphatase 64 U/L (38-126); Aspartate Amino Transferase 25 U/L (17-59); Bilirubin,Total 1.8 mg/dL (0.2-1.3); Cholesterol 180 mg/dL (0-200); HDL Direct 55 mg/dL; Triglycerides 139 mg/dL (<150)
[2024-08-18 13:39] LABS: LDL Cholesterol Direct 96 mg/dL
[2024-08-23 15:58] LABS: Apolipoprotein B 85 mg/dL
== END 2024-08-18 12:21 | disposition home or self-care (01) ==
LOC: ANHLAB 12:21
PROVIDERS: PCP Internal Medicine; Visit Provider Internal Medicine
DX: E78.5 Hyperlipidemia, unspecified (principal)
CPT/HCPCS: 36415; 80061; 80076; 82172

== ENCOUNTER 2024-11-21 12:51 | Outpatient (CLI) | payer OTHER, SELFPAY ==
--- OUTSIDE RECORDS SUMMARY | 2024-11-21 12:56 | XMS_ITS | Patient Health Summary ---
Author Organization [facility] Address [address] [address] Care Team Providers Care Legal Operations Manager Name Role Phone Unavailable Primary Care Provider Unavailabl e Note from [facility],non-owned Affiliates and Associated Physician Practices is amultiple site organization consisting of ambulatory clinics and hospital sitesin [place], [place], [place] and [place]. This disclosure is being madepursuant to the Care Everywhere program and may not contain all information available regarding this patient. Last updated 18.[facility] [employer] Allergies No known active allergies Medications * Be aware that medications may not be up to date on this document. Alwaysverify current medications with the patient. * lisinopril (PRINIVIL; ZESTRIL) 10 MG tablet Take 10 mg by mouth once daily Active Problems No known active problems Social History Tobacco Use Types Packs/Day Years Used Date Smoking Tobacco: Never Smokeless Tobacco: Never Alcohol Use Standard Drinks/Week Comments Yes 0 (1 standard drink = 0.6 oz pur e alcohol) Sex and Gender Information Value Date Recorded Sex Assigned at Not on file Gender Identity Not on file Sexual Orientation Not on file Last Filed Vital Signs Vital Sign Reading Time Taken Comments Blood Pressure 144/86 12/29/2019 9:14 AM CDT Pulse 70 12/29/2019 9:14 AM CDT Temperature 36.7 ??C (98 ??F) 12/29/2019 9:14 AM CDT Respiratory Rate 16 12/29/2019 9:14 AM CDT Oxygen Saturation 96% 12/29/2019 9:14 AM CDT Inhaled Oxygen Concentration - - Weight 96.6 kg (213 lb) 12/29/2019 9:14 AM CDT Height 175.3 cm (5' 9 ) 12/29/2019 9:14 AM CDT Body Mass Index 31.45 12/29/2019 9:14 AM CDT Procedures * INFLUENZA A+B - POINT OF CARE (AMB)(Performed 12/29/2019) Performed for Fever, unspecified fever cause * STREP A SCREEN - POINT OF CARE (AMB) STL(Performed 12/29/2019) Performed for Acute pharyngitis, unspecified etiology Results * STREP A SCREEN - POINT OF CARE (AMB) STL (12/29/2019) Strep A Rapid POCT Negative Negative Strep A Internal Control Present Lot # [id number] Expiration Date 06/17/21 Throat ENTIRE THROAT (SURFACE REGION OF NECK) / Unknown 12/29/2019 NathanielOur Security Team COUNSELOR CAMPDragon [facility] - POINT OF CARE ORDERABLES * INFLUENZA A+B - POINT OF CARE (AMB) (12/29/2019) Influenza A Antigen Rapid Negative Negative Influenza B Antigen Rapid Negative Negative Influenza Internal Control neg/pos NEGATIVE - POSITIVE Influenza Lot Number [id number] Influenza Expiration Date 09/22/21 Other NASOPHARYNGEAL SWAB / Unknown 12/29/2019 Nathaniel Classroom IQshanaVFA [facility] - POINT OF CARE ORDERABLES
--- OUTSIDE RECORDS SUMMARY | 2024-11-21 12:56 | XMS_ITS | Referral Summary ---
Author Organization [facility] Address [address] [place] [address] Care Team Providers Care Patrol Sergeant Sheriff'S Office Name Role Phone Unavailable Primary Care Provider Unavailabl e Source Comments [facility],non-owned Affiliates and Associated Physician Practices is amultiple site organization consisting of ambulatory clinics and hospital sitesin [place], [place], [place] and [place]. This disclosure is being madepursuant to the Care Everywhere program and may not contain all information available regarding this patient. Last updated 18.[facility] Allergies No known active allergies Medications * Be aware that medications may not be up to date on this document. Alwaysverify current medications with the patient. Medication Sig Dispensed Refills Start Date End Date Status lisinopril (PRINIVIL; ZESTRIL) 10 MG tablet Take 10 mg by mouth once daily Active Active Problems No known active problems Social [...] Mass Index 31.45 12/29/2019 9:14 AM CDT Plan of Treatment Not on file Polo Acharya Personal/Family Self 1960 [address] [place] [address]
--- OUTSIDE RECORDS SUMMARY | 2024-11-21 12:56 | XMS_ITS | Clinical Summary ---
Author Organization [facility] Address [address] [place] [address] Care Team Providers Care Tool Pusher Name Role Phone Unavailable Primary Care Provider Unavailabl e Source Comments [facility] [employer],non-owned Affiliates and Associated Physician Practices is amultiple site organization consisting of ambulatory clinics and hospital sitesin [place], [place] and [place]. This disclosure is being madepursuant to the Care Everywhere program and may not contain all information available regarding this patient. Last updated 18.[facility] [employer] Allergies No known active allergies Medications * [...] 12/29/2019 9:14 AM CDT Plan of Treatment Health Maintenance Due Date Last Done Comments COLOGUARD (AGES 45-75) - COL ON CA SCREENING 1960 COLON MONITORING 1960 COLONOSCOPY - COLON CA SCREENING 1962 CT COLONOGRAPHY - COLON CA SCREENING 1960 Colorectal Cancer Screening 1960 FIT - COLON CA SCREENING 1962 FLEX SIG - COLON CA SCREENING 1962 LIPID TESTING 1960 HIV SCREENING 1977 HEPATITIS C SCREENING 01/08/1980 DTAP/TDAP/TD VACCINES (1 - Tdap) 1981 PNEUMOCOCCAL VACCINE 50+ (1 of 1 - PCV) 01/13/2012 ZOSTER VACCINE (1 of 2) 01/13/2012 SCREENING FOR DIABETES 12/29/2019 COVID-19 VACCINE (1 - 2023-2 5 season) 2024 INFLUENZA VACCINE (#1) 2024 DEPRESSION SCREENING 10/18/2024 Respiratory Syncytial Virus (RSV) Vaccine Pt: or over 60 yrs (1 - 1-dose 75+ series) 2037 HEPATITIS B VACCINE Aged Out No longe r eligible based on patient's age to complete this topic HIB VACCINE Aged Out No longer eligi ble based on patient's age to complete this topic HPV VACCINE Aged Out No longer eligi ble based on patient's age to complete this topic MENINGOCOCCAL (Group B) VACCINE Aged Out No longer eligible based on patient's age to complete this topic MENINGOCOCCAL VACCINE Aged Out No damari zach eligible based on patient's age to complete this topic PNEUMOCOCCAL VACCINE Aged Out No long er eligible based on patient's age to complete this topic
--- OUTSIDE RECORDS SUMMARY | 2024-11-21 12:56 | XMS_ITS | Clinical Summary ---
Author Organization [facility] Address [address] [place] [address]. [place], [place] [address] [place] [address] Care Team Providers Care Onion Farmer Name Role Phone Humberto Lorenz MD Primary Care Provider [phone] Social History Tobacco Use Types Packs/Day Years Used Date Smoking Tobacco: Never Assessed Sex and Gender Information Value Date Recorded Sex Assigned at Not on file Legal Sex Male 6:14 PM CDT Gender Identity Not on file Sexual Orientation Not on file Plan of Treatment Health Maintenance Due Date Last Done Comments Colorectal Cancer Screening Colonoscopy (10 Years) 1960 Annual Physical 1965 Hepatitis C 01/13/1980 DTaP, Tdap and Td Vaccines (2 - Td or Tdap) 10/21/2019 10/21/2009, 09/22/1999, 07/22/1999, Additional history exists COVID-19 Vaccine ( season) 2024 07/30/2023, 10/08/2022, 01/31/2022, Additional history exists Influenza Adult (#1) 2024 07/30/2023, 09/25/2022, 08/21/2021, Additional history exists Meningococcal Vaccine Aged Out 04/23/2008 , 09/22/1999, 07/22/1999, Additional history exists No longer eligible based on patient's age to complete this topic Zoster Vaccines Completed 12/11/2022, 09/25/2022 RSV Immunization or 60+ Years Completed 07/30/2023 Meningococcal B Vaccine Aged Out No l onger eligible based on patient's age to complete this topic Pneumococcal Vaccine: Pediatrics (0 to 5 Years) and At-Risk Patients (6 to 64 Years) Aged Out No longer eligible based on patient's age to complete this topic RSV Immunizations Under 20 Months Aged Out No longer eligible based on patient's age to complete this topic Care Teams Onion Farmer Relationship Specialty Start Date End Date Humberto Lorenz MD [address] [place] [address] PCP - General INTERNAL MEDICINE 10/13/23
--- OUTSIDE RECORDS SUMMARY | 2024-11-21 12:56 | XMS_ITS | Clinical Summary ---
Author Organization [facility] Address [address] [place] [address] Phone Care Team Providers Care Mold Machine Operator Name Role Phone Michael Hamlin MD Primary Care Provider [phone] Allergies No known active allergies Medications lisinopril (PRINIVIL, ZESTRIL) 10 MG Tablet Take 10 mg by mouth daily. Active Social History Tobacco Use Types Packs/Day Years Used Date Smoking Tobacco: Never Smokeless Tobacco: Never Alcohol Use Standard Drinks/Week Comments Yes 0 (1 standard drink = 0.6 oz pur e alcohol) rare Sex and Gender Information Value Date Recorded Sex Assigned at Not on file Legal Sex Male 9:25 PM CDT Gender Identity Not on file Sexual Orientation Not on file Last Filed Vital Signs Vital Sign Reading Time Taken Comments Blood Pressure 180/109 02/09/2017 3:02 AM CDT Pulse 71 02/09/2017 3:02 AM CDT Temperature 36.3 ??C (97.4 ??F) 02/09/2017 2:46 AM CD T Respiratory Rate 18 02/09/2017 3:02 AM CDT Oxygen Saturation 98% 02/09/2017 3:02 AM CDT Inhaled Oxygen Concentration - - Weight 93 kg (205 lb) 02/09/2017 2:46 AM CDT Height 175.3 cm (5' 9 ) 02/09/2017 2:46 AM CDT Body Mass Index 30.27 02/09/2017 2:46 AM CDT Plan of Treatment Not on file Care Teams Mold Machine Operator Relationship Specialty Start Date End Date Michael Hamlin MD [address] [place] [id number] PCP - General Family Medicine 02/08/17
[2024-11-21 13:37] LABS: Add Urine Microscopic? NO; Appearance Urine Clear (Clear); Bilirubin Urine Negative (Negative); Blood Urine Negative (Negative); Color Urine Yellow (Yellow); Glucose Urine UA Negative (Negative); Ketones Urine Negative (Negative); Leukocyte Esterase Ur Negative LEU/UL (Negative); Nitrate Urine Negative (Negative); Protein Urine Negative (Negative); Specific Grav Ur 1.006 (1.001-1.035); Urobilinogen Urine 0.2 mg/dL (<2.0); pH Urine 7.5 (5.0-9.0)
[2024-11-21 14:25] LABS: Creatinine Urine 30.4 mg/dL
[2024-11-21 14:38] LABS: MALB Creatinine Ratio < 19.7 mg/g (0-30); Microalbumin Urine Random < 6.0 mg/L (0-16.7)
[2024-11-21 15:48] LABS: Free T4 Free Thyroxine 0.98 ng/dL (0.78-2.19)
[2024-11-21 16:02] LABS: Alanine Aminotransferase 28 U/L (6-50); Albumin Level 4.2 g/dL (3.5-5.1); Alkaline Phosphatase 68 U/L (38-126); Anion Gap 12 mmol/L (4-12); Aspartate Amino Transferase 24 U/L (17-59); Bilirubin,Total 2.4 mg/dL (0.2-1.3); Blood Urea Nitrogen 16 mg/dL (9-20); Calcium 8.7 mg/dL (8.4-10.2); Carbon Dioxide 21 mmol/L (22-30); Chloride 105 mmol/L (98-107); Cholesterol 196 mg/dL (0-200); Estimated Glomerular Filt Rate > 60; Glucose 90 mg/dL (65-110); HDL Direct 46 mg/dL; Potassium 3.9 mmol/L (3.4-5.0); Sodium 138 mmol/L (137-145); Triglycerides 129 mg/dL (<150)
[2024-11-21 16:13] LABS: LDL Cholesterol Direct 124 mg/dL
[2024-11-21 20:55] LABS: Hemoglobin A1C 5.2 % (<5.7)
== END 2024-11-21 12:52 | disposition home or self-care (01) ==
PROVIDERS: PCP Internal Medicine; Visit Provider Internal Medicine
DX: E78.5 Hyperlipidemia, unspecified (principal); I12.9 Hypertensive chronic kidney disease with stage 1 through stage 4 chronic kidney disease, or unspecified chronic kidney disease; N18.9 Chronic kidney disease, unspecified; E55.9 Vitamin D deficiency, unspecified; R73.01 Impaired fasting glucose; R82.998 Other abnormal findings in urine; Z79.899 Other long term (current) drug therapy; Z13.29 Encounter for screening for other suspected endocrine disorder
CPT/HCPCS: 36415; 80053; 80061; 81003; 82043; 82306; 83036; 84439; 84443

== ENCOUNTER 2024-12-22 06:59 | Outpatient (CLI) | payer OTHER, SELFPAY ==
--- NOTE | ~2024-12-22 | US_ITS ---
EXAMINATION: US abdomen limited DATE: 12/22/2024 07:54 INDICATION: Hepatomegaly, not elsewhere classified. TECHNIQUE: Multiple grayscale and Doppler ultrasound images of the abdomen were obtained. COMPARISON: CT abdomen and pelvis 06/02/2024, chest CT 12/13/23 FINDINGS: The visualized portions of the head, body, and tail of the pancreas are normal. There is a 3.6 cm hyperechoic mass in left hepatic lobe. There are 1.0 cm and 2.7 cm hyperechoic masses in the l iver. The gallbladder is normal in size. No gallstones or gallbladder wall thickening. There is no so nographic Tijerina's sign. The common duct is normal and measures 3 mm. IMPRESSION: 1. Three hyperechoic liver masses, stable from 12/13/2023, likely hemangiomas. Reviewed, dictated and finalized at location A. SUPERVISOR
--- OUTSIDE RECORDS SUMMARY | 2024-12-22 07:05 | XMS_ITS | Clinical Summary ---
Author Organization [facility] Address [address] [place] [address] Care Team Providers Care Roller Mill Operator Name Role Phone Humberto Lorenz MD Primary Care Provider [phone] Social History Tobacco Use Types Packs/Day Years [...] age to complete this topic Care Teams Roller Mill Operator Relationship Specialty Start Date End Date Humberto Lorenz MD [address] [place] [id number] PCP - General INTERNAL MEDICINE 10/13/23
--- OUTSIDE RECORDS SUMMARY | 2024-12-22 07:06 | XMS_ITS | Clinical Summary ---
Author Organization [facility] Address [address] [place] [address] Care Team Providers Care Side Hemmer Name Role Phone Unavailable Primary Care Provider Unavailabl e Source Comments [facility],non-owned Affiliates and Associated Physician Practices is amultiple site organization consisting of ambulatory clinics and hospital sitesin [place], [place], [place] and [place]. This disclosure is being madepursuant to the Care Everywhere program and may not contain all information available regarding this patient. Last updated 18.[facility] Allergies No known active allergies Medications * [...] 70 12/29/2019 9:14 AM CDT Temperature 36.7 C (98 F) 12/29/2019 9:14 AM CDT Respiratory Rate 16 [...]
--- OUTSIDE RECORDS SUMMARY | 2024-12-22 07:06 | XMS_ITS | Encounter Summary ---
Author Name [facility] [place] [facility] [place] Address [address] [place] [address] Care Team Providers Care Materials Handling Coordinator Name Role Phone DAVINA PALM Primary Care Provider ORACIO Snyder Unavailable Unavailable Selected Encounter This section includes the information on record at [place] for the Encounter. Date/Time Encounter Type Encounter Description Reason Provider Source Nov 30, 2024 11:00 AM PSYTX W PT 30 MINUTES PCMHI INDIV ICD-10-CM F41.1 Generalized anxiety disorder LORETTA GIRARD [facility] Encounter Template Text not used by [place] Assessments - Encounter Diagnoses This section includes the primary and secondary diagnoses documented for the Encounter. Date/Time Primary/Secondary Diagnosis Diagnosis Name Provider Source Nov 30, 2024 11:38 AM PRIMARY Generalized anxiety disorder LORETTA GIRARD [facility] Plan of Treatment: Future Appointments (+ 6 months) and Future Tests (+/- 45 days) The Plan of Treatment section includes future care activities for the patient from all [place] treatmentfacilities. This section includes future appointments and future orders which are active, pending or scheduled. Future Appointments This section includes appointments that were scheduled to occur 6 months from the date of the Encounter, up to a maximum of 20 appointments. The data comes from all [place] treatment facilities. Appointment Date/Time Appointment Type Appointme nt Facility Name Jan 10, 2025 10:00 AM AMBULATORY - NONE [facility] Social History: Smoking Status (Most current) and Tobacco Use (All prior to encounter date) This section includes the most current, and the historical, smoking and tobacco- related health factors from the [facility] facility where the [facility] place. Current Smoking Status This section includes the most current smoking, or tobacco-related health factor, from the [place] facility where the Encounter took place. Date/Time Current Smoking Status Comment Ba colon Jun 06, 2024 01:15 PM [place]-TOBACCO NEVER USED [facility] Encounter Notes: All associated encounter notes This section contains the clinical notes associated to the Encounter. Date/Time Encounter Note(s) Provider Source Nov 30, 2024 10:50 AM PSYCHOLOGY OUTPATIENT NOTE: LOCAL TITLE: PRIMARY CARE PSYCHOLOGY NOTE ST STANDARD TITLE: PSYCHOLOGY OUTPATIENT NOTE DATE OF NOTE: NOV 30, 2024@10:50 ENTRY DATE: NOV 30, 2024@10:50:45 AUTHOR: LORETTA GIRARD EXP COSIGNER: URGENCY: STATUS: COMPLETED NAME: KEHINDE DEVINE : Dec DATE OF SERVICE: NOV 30, 2024 LENGTH OF SESSION: 30 minutes NATURE OF ENCOUNTER: follow-up visit in primary care; session #2 DIAGNOSIS BEING TREATED: unspecified anxiety d/o MENTAL STATUS/BEH OBS: [place] is alert and oriented. Mood and affect WNL. is cooperative and engaged. RISK ASSESSMENT: reports additional stressors in interval but denies increase in overall stress level. NO SI/HI. Risk factors: anxiety/stress, demos (male, age) Protective factors: enaged in MH care with community provider, good self- awareness, able to use some positive coping skills does not appear to be at imminent risk of harm to self or others and remains sustainable as outpatient. TREATMENT GOAL(S): The following goals were developed using shared decision-making with input by the [place]: tx planning INTERVAL HISTSORY: -overall stress and anxiety level stable although stressors have increased. Stress with lvadsx-ra-dyv and daughters. 28 yo daughter now also living with him as of 1 month ago. 26 yo daughter also lives in home. INTERVENTIONS & RESPONSE: -listened supportively and validated 's concerns/experience -reinforced continuing with self-generated coping skills (relaxation, meditation, yoga, exercise). Reports he has also increased frequency of exercise and incorporated more cardio. Also will be starting weight loss med soon. -utilized shared decision-making regarding continued tx goals/plan of care. He reports continuing to participate in individual and some family therapy in the community. Does not feel need to add MH group at this time. He is still interested in whole health groups and plans to look over that information in near future. - participated actively in session and agreeable to interventions/recs and plan of care discussed. PROGRESS ON GOAL(S): [x ] Collaboratively discussed outcomes related to assessment and treatment Agreed on plan for to continue with individual therapy in community. He will let me know if he decides to pursue referral for MH groups. [x ] Measures will continue to be monitored [ ] Changes in measure scores: Describe: [ ] Outcome data indicates consideration for change in treatment plan Describe: ASSESSMENT MEASURES USED: [ ] Measure in Mental Health Architectural Practice Manager. See accompanying Mental Health Diagnostic Study for details. [ ] Other Measures: Measure: Score: [ x] Not administered this session [ ] Measures not indicated this session. Frequency of administration: [x ] Completed symptom review [ ] [place] declined to complete measures this session. [ ] Describe efforts to increase measurement: PLAN: No [facility] f/u scheduled. has continued individual therapy in community and plans to continue with this therapist. He will let me know if he'd like to pursue referral to MH groups. /verna/ LORETTA GIRARD, PHD [facility] Psych[facility] Signed: 11/30/2024 11:38 LORETTA GIRARD [facility]
--- OUTSIDE RECORDS SUMMARY | 2024-12-22 07:06 | XMS_ITS | Patient Health Summary ---
Author Organization [facility] Address [address] [place] [address] Care Team Providers Care Regional Tanker Truck Driver Name Role Phone Unavailable Primary Care Provider Unavailabl e Note from [facility],non-owned Affiliates and Associated Physician Practices is amultiple site organization consisting of ambulatory clinics and hospital sitesin [place], [place], [place] and [place]. This disclosure is being madepursuant to the Care Everywhere program and may not contain all information available regarding this patient. Last updated 18.[facility] [employer] Allergies No known active allergies Medications * [...] Strep A Internal Control Present Lot # [id number] Expiration Date 06/17/21 Throat ENTIRE THROAT (SURFACE REGION OF NECK) / Unknown 12/29/2019 Nathaniel HerreraYesweplay CONDUIT BENDERSFOXVICE PRESIDENT OF BUSINESS DEVELOPMENT LAB - POINT OF CARE ORDERABLES * INFLUENZA A+B - POINT OF CARE (AMB) (12/29/2019) Influenza A Antigen Rapid Negative Negative Influenza B Antigen Rapid Negative Negative Influenza Internal Control neg/pos NEGATIVE - POSITIVE Influenza Lot Number [id number] Influenza Expiration Date 09/22/21 Other NASOPHARYNGEAL SWAB / Unknown 12/29/2019 Nathaniel Lan APRNSFOXVICE PRESIDENT OF BUSINESS DEVELOPMENT LAB - POINT OF CARE ORDERABLES
--- OUTSIDE RECORDS SUMMARY | 2024-12-22 07:06 | XMS_ITS | Continuity of Care Document ---
Author Name [facility] Organization [facility] Care Team Providers Care Audit Control Clerk Name Role Phone [facility] Unavailable Unavailable Problems Combined list of problems from Department of Defense and Veterans Affairs facilities. It does not include entries that were removed or entered in error. 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 DoD adjustment insomnia Active Condition DoD joint pain, localized in the shoulder Active Condition DoD Other Physical Therapy Active Condition DoD joint pain, localized in the left shoulder Active Condition DoD insomnia Active Condition DoD liver neoplasm, benign - hemangioma Inactive Condition DoD retinopathy hypertensive 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 DoD hemangioma Inactive Condition DoD Abdominal MRI Liver Mass Lesion Active Condition DoD blood in urine Active Condition DoD renal insufficiency Inactive Condition 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 DoD visual field defect Active Condition [facility] Administrative Evaluation Services Active Condition DoD visit for: screening exam hypertension Inactive Condition DoD hip sprain hamstring insertion right Active Condition DoD hypertension systemic Active Condition DoD glaucoma Active Condition DoD Blood Pressure Isolated Elevated Active Condition DoD visit for: camp physical Inactive Condition DoD visual field sector defect left eye Active Condition DoD Need For Vaccination Typhoid Inactive Condition [facility] visit for: administrative purpose Inactive Condition DoD ankle joint pain Inactive Condition DoD ankle sprain right Inactive Condition DoD visit for: issue medical certificate Inactive Condition Inital 1042 DoD Patient Education Inactive Condition DoD Spectacles Services Fitting Bifocal Except For Aphakia Inactive Condition DoD presbyopia Active Condition DoD astigmatism Active Condition DoD insomnia due to stress Inactive Condition will provide Xa nax .5 mg #30 1-2 tabs po up to BID as dir for anxious sxs. Rx is non formulary and a hand written rx was completed. DoD reaction to chronic stress Inactive Condition - Counseled p t on use of meds- DNIF status understood by pt. (verbal)- report to me upon return from trip- avoidance of etoh with meds- I have hand-written Rx for Valium 5 mg #15 to be filled at local pharmacy as [facility] is closed today. take 1-2 po up to BID as dir for anxious sxs/feelings. [facility] work-related circumstances Inactive Condition [facility] family disruption Inactive Condition [facility] sinusitis acute inflammation Inactive Condition [facility] Physical Examination Inactive Condition - Scheduled PHA/Flyer exam- Labs reviewed and discussed. - Counseled on the need to add extra testicular support for weak inguinal area. - Discussed the anatomy and etiology for hernia explaination- Counseled and briefed on nutrition and weight loss activities- Total time of patient encounter with tariff counsel is 35 minutes. DoD visit for: occupational health / fitness exam Inactive Condition 46 Y/O MALE FOR INITIAL CLEARANCENO WAIVERS, NO CONCERNS, NO QUESTIONS.1042 SIGNED.PATIENT GIVEN GROUND TRIAL OF CIPRO.DNIF. [facility] visit for: [employer] services flight physical Active Condition [facility] acute bronchitis Inactive Condition Wri tten RX's due to system failure. Logged in by pharmacy. [facility] visit for: services physical Active Condition PHA 1042 completedDNIF for myopiaDNIF 1042 completedoptometry appt scheduled for [facility] need to have new eyeglass rx and corrected to 20/20 delmis prior to being returned [facility] Benign essential hypertension Active Condition [facility] Elevated PSA Active Condition [facility] Generalized anxiety disorder Active Condition [facility] Diagnosis: ICD-10-CM F41.1 Generalized anxiety disorder Active Diagnosis [facility] Diagnosis: ICD-10-CM F41.9 Anxiety disorder, unspecified Active Diagnosis [facility] Diagnosis: ICD-10-CM E66.9 Obesity, unspecified Active Diagnosis [facility] Diagnosis: ICD-10-CM I10 Essential (primary) hypertension Active Diagnosis [facility] Medications Combined list of outpatient medications from Department of Defense and Veterans Affairs facilities.Medications provided include 1) outpatient medications from the last 15 months, and 2) patient-reported medications. Medication Details Route Status Patient Instructions Prescription Expires Prescription Number Last Dispense Date Ordering Provider Order Date Order Qty Source ALBUTEROL SO4 90MCG/ACTUA T (CFC-F) INHL,ORAL,8 .5GM INHALE 2 PUFFS ORAL INHALATI ON PRN RESPIR ATORY (INHAL ATION) ACTIVE ALIZE TRUJILLO T 2023 [facility] ALBUTEROL SULFATE HFA (albuterol sulfate), 90 MCG, HFA AER AD, INHALATION, [place], 8.5 g CANISTER Active [id number] 2023 25.5 Pharmac y Data Transac tion Service Facilit y ALBUTEROL SULFATE HFA (albuterol sulfate), 90 MCG, HFA AER AD, INHALATION, [place]EVA [place], 8.5 g CANISTER Active [id number] 4 2023 8.5 Pharmac y Data Transac tion Service Facilit y ASPIRIN 81MG TAB,EC TAKE ONE TABLET BY MOUTH ONCE A DAY ORAL ACTIVE ALIZE TRUJILLO T 2023 [facility] BUPROPION (WELLBUTRIN XL) 24HR TAB,SA (EXTENDED RELEASE) TAKE 150MG BY MOUTH ONCE A DAY ORAL ACTIVE ALIZE TRUJILLO T 2023 [facility] CHOLECALCIF VIVIAN 50MCG (2,000UNIT) TAB TAKE ONE TABLET BY MOUTH ONCE A DAY ORAL ACTIVE ALIZE TRUJILLO T 2023 [facility] CYANOCOBALA MIN 1000MCG TAB TAKE ONE TABLET BY MOUTH ONCE A DAY ORAL ACTIVE ALIZE TRUJILLO 2023 [facility] DILTIAZEM (EQV-TIAZAC AB4) 360MG 24HR CAP TAKE 1 CAPSULE BY MOUTH EVERY MORNING BEFORE A MEAL ORAL ACTIVE ALIZE TRUJILLO T 2023 [facility] DILTIAZEM 24HR ER (CD) (diltiazem HCl), 300 MG, CAP ER 24H, ORAL, INGENUS PHARMAC, 90 ea. BOTTLE Cancele d [id number] : 2023 0 Pharmac y Data Transac tion Service Facilit y DILTIAZEM 24HR ER (CD) (diltiazem HCl), 300 MG, CAP ER 24H, ORAL, INGENUS PHARMAC, 90 ea. BOTTLE Active [id number] 2023 90 Pharmac y Data Transac tion Service Facilit y LAGEVRIO (EUA) (molnupirav ir), 200 MG, CAPSULE, ORAL, MERCK SHARP & D, 40 ea. BOTTLE Active [id number] 2023 40 Pharmac y Data Transac tion Service Facilit y TRAZODONE HCL 100MG TAB TAKE ONE-HALF TABLET BY MOUTH AT BEDTIME ORAL ACTIVE ALIZE TRUJILLO FLORENTIN T 2023 [facility] VALSARTAN 320MG TAB TAKE ONE TABLET BY MOUTH ONCE A DAY ORAL ACTIVE ALIZE TRUJILLO FLORENTIN T 2023 [facility] N Allergies, Adverse Reactions, Alerts Combined list of allergies from Department of Defense and Veterans Affairs facilities. It does not include entries that were removed or entered in error. Substance Category Reaction Severity Reaction type Status Date Reported Comments Source No Known Allergies Drug allergy (disorder) active 8 [employer] SHELLFISH Propensity to adverse reactions to food (finding) Diarrhea MILD active 4 [facility] Immunizations Combined list of available immunizations from the Department of Defense and Veterans Affairs facilities. Immunization Series Date Given Administered By Site Reaction Lot Number CVX Code Drug Product Engineer Status Comments Source TDAP 2023 CHRISTOPHER LYNN D LEFT DELTO ID [id number] [facility] ([facility]vo), MRNA, LNP-S, PF, TOM-SUCROSE, 30 MCG/0.3 ML (AGES 12+ YEARS) 2022 309 complet ed [facility] INFLUENZA, UNSPECIFIED FORMULATION 2022 88 complet ed [facility] N ZOSTER RECOMBINANT 2 2022 187 complet [facility] N COVID-19 (VenJuvo), MRNA, LNP-S, BIVALENT, PF, 30 MCG/0.3 ML DOSE 1 2021 300 complet ed [facility] N ZOSTER RECOMBINANT 1 2021 187 complet [facility] COVID-19 (MODERNA), MRNA, LNP-S, PF, 100 MCG/0.5ML DOSE OR 50 MCG/0.25ML DOSE 1 2021 207 complet [facility] COVID-19 (PFIZER), MRNA, LNP-S, PF, 30 MCG/0.3 ML DOSE 3 2021 208 complet [facility] Influenza, injectable, MDCK, preservative free, quadrivalent 2020 ALUL, () Not Given Influenza , injectabl e, MDCK, preservat daniel free, quadrival ent [facility] COVID-19, mRNA, LNP-S, PF, 30 mcg/0.3 mL dose 2020 ALUL, [employer] [place] (PFR) Not Given COVID-19, mRNA, LNP-S, PF, 30 mcg/0.3 mL dose [facility] COVID-19 (PFIZER), MRNA, LNP-S, PF, 30 MCG/0.3 ML DOSE 2 2020 208 complet [facility] DIVISIO N COVID-19 (PFIZER), MRNA, LNP-S, PF, 30 MCG/0.3 ML DOSE 1 2020 208 complet [facility] DIV[facility]IO N typhoid Vi capsular polysaccharid e vac 2011 [id number] sanofi pasteur complet ed typhoid Vi capsular polysacch aride vac 02/26/12 Given Ambulat ory Pharmac y typhoid Vi capsular polysaccharid e vaccine 1 2011 [id number] 101 Sanofi Pasteur ([facility]) complet ed typhoid Vi capsular polysacch aride vaccine [facility] influenza virus vaccine, live 2010 [id number] 111 [employer] comple t ed influenza virus vaccine, live 08/06/11 Given Ambulat ory Pharmac y influenza virus vaccine, live, attenuated, for intranasal use 18 2010 [id number] 111 [employer] (MED) complet ed influenza virus vaccine, live, attenuate d, for intranasa l use [facility] influenza virus vaccine,split 2009 [id number] 15 sanofi pasteur complet ed influenza virus vaccine,s plit 09/15/10 Given Ambulat ory Pharmac y influenza virus vaccine, split virus (incl. purified surface antigen)-reti red CODE 1 2009 [id number] 15 Sanofi Pasteur (PMC) complet ed influenza virus vaccine, split virus (incl. purified surface antigen)- retired CODE DoD Novel influenza-H1N 1-09, injectable 2009 127 complet ed Novel influenza -M8Z2-75, injectabl e 10/29/09 Given Ambulat ory Pharmac y Novel influenza-H1N 1-09, injectable 1 2009 127 Transcribed (TRS) complet ed Novel influenza -S1C5-42, injectabl e DoD tetanus, diphtheria, acellular pertu is 2009 [id number] 115 [facility] complet ed tetanus, diphtheri a, acellular pertussis 10/21/09 Given Ambulat ory Pharmac y tetanus toxoid, reduced diphtheria toxoid, and acellular pertu is vaccine, adsorbed 1 2009 [id number] 115 [employer] (SKB) complet ed tetanus toxoid, reduced diphtheri a toxoid, and acellular pertussis vaccine, adsorbed DoD influenza virus vaccine, live 2008 [id number] 111 [employer] complet ed influenza virus vaccine, live 08/09/09 Given Ambulat ory Pharmac y influenza virus vaccine, live, attenuated, for intranasal use 1 2008 [id number] 111 Med[employer] Inc. (MED) complet ed influenza virus vaccine, live, attenuate d, for intranasa l use DoD typhoid Vi capsular polysaccharid e vac 2008 [id number] 101 sanofi pasteur complet ed typhoid Vi capsular polysacch aride vac 01/10/09 Given Ambulat ory Pharmac y typhoid Vi capsular polysaccharid e vaccine 1 2008 [id number] 101 Sanofi Pasteur (PMC) complet ed typhoid Vi capsular polysacch aride vaccine DoD influenza virus vaccine, live 2007 [id number] 111 Med[employer] Inc comple t ed influenza virus vaccine, live 07/19/08 Given Ambulat ory Pharmac y influenza virus vaccine, live, attenuated, for intranasal use 1 2007 [id number] 111 [employer] (MED) complet ed influenza virus vaccine, live, attenuate d, for intranasa l use DoD meningococcal A,C,Y,W-135 (MCV4P) 2007 [id number] 114 sanofi pasteur complet ed meningoco ccal A,C,Y,W-1 35 (MCV4P) 04/23/08 Given Ambulat ory Pharmac y meningococcal polysaccharid e (groups A, C, Y and W-135) diphtheria toxoid conjugate vaccine (MCV4P) 1 2007 [id number] 114 Sanofi Pasteur (PMC) complet ed meningoco ccal polysacch aride (groups A, C, Y and W-135) diphtheri a toxoid conjugate vaccine (MCV4P) DoD hepatitis B adult vaccine 2007 [id number] 43 GlaxoSmithKli ne complet ed hepatitis B adult vaccine 03/29/08 Given Ambulat ory Pharmac y hepatitis B vaccine, adult dosage 3 2007 [id number] 43 [employer]Kline (SKB) complet ed hepatitis B vaccine, adult dosage DoD hepatitis B adult vaccine 2006 [id number] 43 GlaxoSmithKli ne complet ed hepatitis B adult vaccine 10/06/07 Given Ambulat ory Pharmac y influenza virus vaccine,split 2006 [id number] 15 GlaxoSmithKli ne complet ed influenza virus vaccine,s plit 10/06/07 Given Ambulat ory Pharmac y influenza virus vaccine, split virus (incl. purified surface antigen)-reti red CODE 1 2006 [id number] 15 [employer]Kline (SKB) complet ed influenza virus vaccine, split virus (incl. purified surface antigen)- retired CODE DoD hepatitis B vaccine, adult dosage 2 2006 [id number] 43 [employer]line (SKB) complet ed hepatitis B vaccine, adult dosage DoD hepatitis B adult vaccine 2006 [id number] 43 GlaxoSmithKli ne complet ed hepatitis B adult vaccine 08/08/07 Given Ambulat ory Pharmac y hepatitis B vaccine, adult dosage 0 2006 [id number] 43 SmithKline (SKB) complet ed hepatitis B vaccine, adult dosage DoD anthrax vaccine 2006 [id number] 24 [employer] complet ed anthrax vaccine 07/10/07 Given Ambulat ory Pharmac y anthrax vaccine 6 2006 [id number] 24 [employer] [place] ([facility]) complet ed anthrax vaccine DoD vaccinia (smallpox) vaccine 2006 [id number] 75 [employer] [facility] complet ed vaccinia (smallpox ) vaccine 06/07/07 Given Ambulat ory Pharmac y vaccinia (smallpox) vaccine 1 2006 [id number] 75 [facility] ([facility]) complet ed vaccinia (smallpox ) vaccine DoD typhoid Vi capsular polysaccharid e vac 2006 [id number] 101 sanofi pasteur complet ed typhoid Vi capsular polysacch aride vac 01/06/07 Given Ambulat ory Pharmac y anthrax vaccine 2006 [id number] 24 [employer] complet ed anthrax vaccine 01/06/07 Given Ambulat ory Pharmac y anthrax vaccine 6 2006 [id number] 24 Emergent BioDef[employer] [facility] ([facility]) complet ed anthrax vaccine DoD typhoid Vi capsular polysaccharid e vaccine 1 2006 [id number] 101 Sanofi Pasteur ([facility]) complet ed typhoid Vi capsular polysacch aride vaccine DoD influenza virus vaccine, live 2005 [id number] 111 [employer] comple t ed influenza virus vaccine, live 07/06/06 Given Ambulat ory Pharmac y influenza virus vaccine, live, attenuated, for intranasal use 1 2005 [id number] 111 [employer] (MED) complet ed influenza virus vaccine, live, attenuate d, for intranasa l use [facility] influenza virus vaccine, whole virus 2004 [id number] 16 sanofi pasteur complet ed influenza virus vaccine, whole virus 08/07/05 Given Ambulat ory Pharmac y influenza virus vaccine,split 2004 [id number] 15 sanofi pasteur complet ed influenza virus vaccine,s plit 08/07/05 Given Ambulat ory Pharmac y influenza virus vaccine, split virus (incl. purified surface antigen)-reti red CODE 1 2004 [id number] 15 Sanofi Pasteur (PMC) complet ed influenza virus vaccine, split virus (incl. purified surface antigen)- retired CODE DoD influenza virus vaccine, whole virus 1 2004 [id number] 16 Sanofi Pasteur (PMC) complet ed influenza virus vaccine, whole virus DoD influenza virus vaccine, live 2003 [id number] 111 [employer] comple t ed influenza virus vaccine, live 10/15/04 Given Ambulat ory Pharmac y influenza virus vaccine, live, attenuated, for intranasal use 0 2003 [id number] 111 [employer] (MED) complet ed influenza virus vaccine, live, attenuate d, for intranasa l use DoD influenza virus vaccine, whole virus 2002 [id number] 16 [employer] complet ed influenza virus vaccine, whole virus 07/31/03 Given Ambulat ory Pharmac y influenza virus vaccine, whole virus 0 2002 [id number] 16 Ma[employer] (EVN) complet ed influenza virus vaccine, whole virus DoD influenza virus vaccine, whole virus 2001 [id number] 16 sanofi [facility] complet ed influenza virus vaccine, whole virus 01/11/02 Given Ambulat ory Pharmac y influenza virus vaccine, whole virus 0 2001 [id number] 16 Sanofi Pasteur ([facility]) complet ed influenza virus vaccine, whole virus DoD influenza virus vaccine, whole virus 2000 [id number] 16 [facility] complet ed influenza virus vaccine, whole virus 11/03/00 Given Ambulat ory Pharmac y influenza virus vaccine, whole virus 0 2000 [id number] 16 [facility] ([facility]) complet ed influenza virus vaccine, whole virus DoD influenza virus vaccine, whole virus 1999 16 complet ed influenza virus vaccine, whole virus 07/18/00 Given Ambulat ory Pharmac y influenza virus vaccine, whole virus 0 1999 16 () complet ed influenza virus vaccine, whole virus DoD tuberculin purified protein derivative 1999 [id number] 96 [facility] complet ed tuberculi n purified protein derivativ e 07/02/00 Given Ambulat ory Pharmac y yellow fever vaccine 1999 37 complet ed yellow fever vaccine 07/02/00 Given Ambulat ory Pharmac y yellow fever vaccine 0 1999 37 () complet ed yellow fever vaccine DoD influenza virus vaccine, whole virus 1999 [id number] 16 [facility] complet ed influenza virus vaccine, whole virus 02/25/00 Given Ambulat ory Pharmac y influenza virus vaccine, whole virus 0 1999 [id number] 16 [place] (CON) complet ed influenza virus vaccine, whole virus DoD tuberculin purified protein derivative 1999 96 complet ed Patient Tolerance : Negative Ambulat ory Pharmac y tuberculin skin test; purified protein derivative solution, intradermal 2 1999 Unknown, Provider 96 () complet ed tuberculi n skin test; purified protein derivativ e solution, intraderm al DoD hepatitis A adult vaccine 1998 52 complet ed hepatitis A adult vaccine 09/22/99 Given Ambulat ory Pharmac y meningococcal polysaccharid e (MPSV4) 1998 32 complet ed meningoco ccal polysacch aride (MPSV4) 09/22/99 Given Ambulat ory Pharmac y poliovirus vaccine, live, oral 1998 02 complet ed polioviru s vaccine, live, oral 09/22/99 Given Ambulat ory Pharmac y tetanus-dipht h toxoids (Td) adult/adol 1998 09 complet ed tetanus-d iphth toxoids (Td) adult/ado l 09/22/99 Given Ambulat ory Pharmac y measles/mumps /rubella virus vaccine 1998 03 complet ed measles/m umps/rube lla virus vaccine 09/22/99 Given Ambulat ory Pharmac y influenza virus vaccine, whole virus 1998 16 complet ed influenza virus vaccine, whole virus 09/22/99 Given Ambulat ory Pharmac y trivalent poliovirus vaccine, live, oral 0 1998 02 () complet ed trivalent polioviru s vaccine, live, oral DoD measles, mumps and rubella virus vaccine 0 1998 03 () complet ed measles, mumps and rubella virus vaccine DoD tetanus and diphtheria toxoids, adsorbed, preservative free, for adult use (2 Lf of tetanus toxoid and 2 Lf of diphtheria toxoid) 0 1998 09 () complet ed tetanus and diphtheri a toxoids, adsorbed, preservat daniel free, for adult use (2 Lf of tetanus toxoid and 2 Lf of diphtheri a toxoid) DoD influenza virus vaccine, whole virus 0 1998 16 () complet ed influenza virus vaccine, whole virus DoD meningococcal polysaccharid e vaccine (MPSV4) 0 1998 32 () complet ed meningoco ccal polysacch aride vaccine (MPSV4) DoD hepatitis A vaccine, adult dosage 3 1998 52 () complet ed hepatitis A vaccine, adult dosage DoD anthrax vaccine 1998 [id number] 24 [employer] complet ed anthrax vaccine 08/08/99 Given Ambulat ory Pharmac y anthrax vaccine 5 1998 [id number] [employer] [place] (MIP) complet ed anthrax vaccine DoD influenza virus vaccine,split 1998 [id number] 15 [facility] complet ed influenza virus vaccine,s plit 08/05/99 Given Ambulat ory Pharmac y influenza virus vaccine, split virus (incl. purified surface antigen)-reti red CODE 0 1998 [id number] 15 [place] (CON) complet ed influenza virus vaccine, split virus (incl. purified surface antigen)- retired CODE DoD typhoid vaccine, parenteral 1998 41 complet ed typhoid vaccine, parentera l 07/22/99 Given Ambulat ory Pharmac y meningococcal polysaccharid e (MPSV4) [id number] 32 [employer] [facility] complet ed meningoco ccal polysacch aride (MPSV4) 07/22/99 Given Ambulat ory Pharmac y tetanus-dipht h toxoids (Td) adult/adol 1998 [id number] [employer] [facility] complet ed tetanus-d iphth toxoids (Td) adult/ado l 07/22/99 Given Ambulat ory Pharmac y tetanus and diphtheria toxoids, adsorbed, preservative free, for adult use (2 Lf of tetanus toxoid and 2 Lf of diphtheria toxoid) 0 1998 [id number] 09 [place] (CON) complet ed tetanus and diphtheri a toxoids, adsorbed, preservat daniel free, for adult use (2 Lf of tetanus toxoid and 2 Lf of diphtheri a toxoid) DoD meningococcal polysaccharid e vaccine (MPSV4) 0 [id number] 32 [place] (CON) complet ed meningoco ccal polysacch aride vaccine (MPSV4) DoD typhoid vaccine, parenteral, other than acetone-kille d, dried 0 1998 41 () complet ed typhoid vaccine, parentera l, other than acetone-k illed, dried DoD anthrax vaccine 1998 UNKNOWN 24 [employer] complet ed anthrax vaccine 02/14/99 Given Ambulat ory Pharmac y anthrax vaccine 4 1998 UNKNOWN 24 [employer] (MIP) complet ed anthrax vaccine DoD hepatitis A vaccine, unspecified formul 1998 85 complet ed hepatitis A vaccine, unspecifi ed formul 02/03/99 Given Ambulat ory Pharmac y hepatitis A adult vaccine 1998 52 complet ed hepatitis A adult vaccine 02/03/99 Given Ambulat ory Pharmac y hepatitis A vaccine, adult dosage 2 1998 52 () complet ed hepatitis A vaccine, adult dosage DoD hepatitis A vaccine, unspecified formulation 0 1998 85 (MV) complet ed hepatitis A vaccine, unspecifi ed formulati on DoD tuberculin purified protein derivative 1998 96 complet ed Patient Tolerance : Negative Ambulat ory Pharmac y tuberculin skin test; purified protein derivative solution, intradermal 1 1998 Unknown, Provider 96 () complet ed tuberculi n skin test; purified protein derivativ e solution, intraderm al DoD anthrax vaccine 1998 UNKNOWN 24 [employer] complet ed anthrax vaccine 01/29/99 Given Ambulat ory Pharmac y anthrax vaccine 3 1998 UNKNOWN 24 [employer] (MIP) complet ed anthrax vaccine DoD anthrax vaccine 1998 UNKNOWN 24 [employer] complet ed anthrax vaccine 01/14/99 Given Ambulat ory Pharmac y anthrax vaccine 2 1998 UNKNOWN 24 [employer] [place] (MIP) complet ed anthrax vaccine DoD anthrax vaccine 1998 UNKNOWN 24 [employer] complet ed anthrax vaccine 12/26/98 Given Ambulat ory Pharmac y anthrax vaccine 1 1998 UNKNOWN 24 [employer] [place] (MIP) complet ed anthrax vaccine DoD influenza virus vaccine, whole virus [id number] complet ed influenza virus vaccine, whole virus 08/27/98 Given Ambulat ory Pharmac y influenza virus vaccine,split 1997 15 complet ed influenza virus vaccine,s plit 08/27/98 Given Ambulat ory Pharmac y influenza virus vaccine, split virus (incl. purified surface antigen)-reti red CODE 0 1997 15 (MV) complet ed influenza virus vaccine, split virus (incl. purified surface antigen)- retired CODE DoD influenza virus vaccine, whole virus 0 [id number] 16 (MV) complet ed influenza virus vaccine, whole virus DoD hepatitis A adult vaccine 1996 52 complet ed hepatitis A adult vaccine 09/10/97 Given Ambulat ory Pharmac y influenza virus vaccine, whole virus [id number] complet ed influenza virus vaccine, whole virus 09/10/97 Given Ambulat ory Pharmac y influenza virus vaccine, whole virus 0 [id number] 16 (MV) complet ed influenza virus vaccine, whole virus DoD hepatitis A vaccine, adult dosage 1 1996 52 () complet ed hepatitis A vaccine, adult dosage DoD typhoid, parenteral, AKD 1994 - 53 Unknown complet ed typhoid, parentera l, AKD 12/29/94 Given Ambulat ory Pharmac y typhoid vaccine, parenteral, acetone-kille d, dried ([place] ) 1 1994 - 53 Unknown (UNK) comple t ed typhoid vaccine, parentera l, acetone-k illed, dried ([place] ) DoD meningococcal polysaccharid e (MPSV4) [id number] 32 Unknown complet ed meningoco ccal polysacch aride (MPSV4) 04/10/91 Given Ambulat ory Pharmac y meningococcal polysaccharid e vaccine (MPSV4) 0 [id number] 32 Unknown (UNK) comple t ed meningoco ccal polysacch aride vaccine (MPSV4) DoD meningococcal polysaccharid e (MPSV4) 1990 32 complet ed meningoco ccal polysacch aride (MPSV4) 11/10/90 Given Ambulat ory Pharmac y meningococcal polysaccharid e vaccine (MPSV4) 0 1990 32 () complet ed meningoco ccal polysacch aride vaccine (MPSV4) DoD yellow fever vaccine 19888613 [id number] 37 PFIZER complet ed yellow fever vaccine 04/30/89 Given Ambulat ory Pharmac y yellow fever vaccine 0 19883990 [id number] 37 [place] ([place]active) ([place]) complet ed yellow fever vaccine DoD poliovirus vaccine, live, oral 1988 02 complet ed polioviru s vaccine, live, oral 04/27/89 Given Ambulat ory Pharmac y tetanus-dipht h toxoids (Td) adult/adol 1988 09 complet ed tetanus-d iphth toxoids (Td) adult/ado l 04/27/89 Given Ambulat ory Pharmac y trivalent poliovirus vaccine, live, oral 0 1988 02 () complet ed trivalent polioviru s vaccine, live, oral DoD tetanus and diphtheria toxoids, adsorbed, preservative free, for adult use (2 Lf of tetanus toxoid and 2 Lf of diphtheria toxoid) 0 1988 09 () complet ed tetanus and diphtheri a toxoids, adsorbed, preservat daniel free, for adult use (2 Lf of tetanus toxoid and 2 Lf of diphtheri a toxoid) DoD tetanus-dipht h toxoids (Td) adult/adol 1980 - Unknown complet ed tetanus-d iphth toxoids (Td) adult/ado l 01/16/81 Given Ambulat ory Pharmac y tetanus and diphtheria toxoids, adsorbed, preservative free, for adult use (2 Lf of tetanus toxoid and 2 Lf of diphtheria toxoid) 0 1980 - Unknown (UNK) comple t ed tetanus and diphtheri a toxoids, adsorbed, preservat daniel free, for adult use (2 Lf of tetanus toxoid and 2 Lf of diphtheri a toxoid) DoD Results Combined list of recent chemistry, hematology and other laboratory results from Department of Defense and Veterans Affairs, ranging from 15 months to all on record, depending upon the facility. Order Name Results Value Reference Range Date Interpretation Specimen Comments Source TSH W/ REFLEX FT4 (STL) THYROTROPI N [UNITS/VOL UME] IN SERUM OR PLASMA 1.023 u[IU]/mL 0.47 - 5 06/06 Specimen Type: PLASMA No comment entered. Ordering Provider: MONAE TRUJILLO Report Released Date/Time: Jun 06, 2024 02:27 PM Reporting Lab: [address] [address] Performing Lab: [address] [address] [facility] RENAL PANEL CREATININE [MASS/VOLU ME] IN SERUM OR PLASMA 1.28 mg/dL 0.7 - 1.3 06/06 Specimen Type: PLASMA Comment: No hemolysis noted. Ordering Provider: MONAE TRUJILLO Report Released Date/Time: Jun 06, 2024 02:27 PM Reporting Lab: [address] [address] Performing Lab: [address] [address] [facility] RENAL PANEL UREA NITROGEN [MASS/VOLU ME] IN SERUM OR PLASMA 14.2 mg/dL 9.0 - 25.0 06/06 Specimen Type: PLASMA Comment: No hemolysis noted. Ordering Provider: MONAE TRUJILLO Report Released Date/Time: Jun 06, 2024 02:27 PM Reporting Lab: [address] [address] Performing Lab: [address] [address] [facility] RENAL PANEL GLUCOSE [MASS/VOLU ME] IN SERUM OR PLASMA 94 mg/dL 72 - 99 06/06 Specimen Type: PLASMA Comment: No hemolysis noted. Ordering Provider: MONAE TRUJILLO Report Released Date/Time: Jun 06, 2024 02:27 PM Reporting Lab: [address] [address] Performing Lab: [address] [address] [facility] RENAL PANEL SODIUM [MOLES/VOL UME] IN SERUM OR PLASMA 140 meq/L 136 - 145 06/06 Specimen Type: PLASMA Comment: No hemolysis noted. Ordering Provider: MONAE TRUJILLO Report Released Date/Time: Jun 06, 2024 02:27 PM Reporting Lab: [address] [address] Performing Lab: [facility] [address] [place] [address] [facility] RENAL PANEL POTASSIUM [MOLES/VOL UME] IN SERUM OR PLASMA 3.8 meq/L 3.5 - 5 06/06 Specimen Type: PLASMA Comment: No hemolysis noted. Ordering Provider: MONAE TRUJILLO Report Released Date/Time: Jun 06, 2024 02:27 PM Reporting Lab: [address] [address] Performing Lab: [address] [address] [facility] RENAL PANEL CHLORIDE [MOLES/VOL UME] IN SERUM OR PLASMA 107 meq/L 98 - 107 06/06 Specimen Type: PLASMA Comment: No hemolysis noted. Ordering Provider: MONAE TRUJILLO Report Released Date/Time: Jun 06, 2024 02:27 PM Reporting Lab: [address] [address] Performing Lab: [address] [address] [facility] RENAL PANEL CARBON DIOXIDE, TOTAL [MOLES/VOL UME] IN SERUM OR PLASMA 23 meq/L 22 - 31 06/06 Specimen Type: PLASMA Comment: No hemolysis noted. Ordering Provider: MONAE TRUJILLO Report Released Date/Time: Jun 06, 2024 02:27 PM Reporting Lab: [address] [address] Performing Lab: [address] [address] [facility] RENAL PANEL CALCIUM [MASS/VOLU ME] IN SERUM OR PLASMA 9.5 mg/dL 8.4 - 10.4 06/06 Specimen Type: PLASMA Comment: No hemolysis noted. Ordering Provider: MONAE TRUJILLO Report Released Date/Time: Jun 06, 2024 02:27 PM Reporting Lab: [address] [address] Performing Lab: [facility] [address] [place] [address] [facility] RENAL PANEL PHOSPHATE [MASS/VOLU ME] IN SERUM OR PLASMA 3.1 mg/dL 2.3 - 4.7 06/06 Specimen Type: PLASMA Comment: No hemolysis noted. Ordering Provider: MONAE TRUJILLO Report Released Date/Time: Jun 06, 2024 02:27 PM Reporting Lab: [address] [address] Performing Lab: [address] [address] [facility] RENAL PANEL ALBUMIN [MASS/VOLU ME] IN SERUM OR PLASMA 4.6 g/dL 3.4 - 5 06/06 Specimen Type: PLASMA Comment: No hemolysis noted. Ordering Provider: MONAE TRUJILLO Report Released Date/Time: Jun 06, 2024 02:27 PM Reporting Lab: [address] [address] Performing Lab: [address] [address] [facility] RENAL PANEL GLOMERULAR FILTRATION RATE/1.73 SQ M.PREDICTE D [VOLUME RATE/AREA] IN SERUM, PLASMA OR BLOOD BY CREATININE -BASED FORMULA (CKD-EPI 2020) 63.3 60 06/06 Specimen Type: PLASMA Comment: No hemolysis noted. Ordering Provider: MONAE TRUJILLO Report Released Date/Time: Jun 06, 2024 02:27 PM Reporting Lab: [address] [address] Performing Lab: [address] [address] [facility] CBC LEUKOCYTES [#/VOLUME] IN BLOOD BY AUTOMATED COUNT 6.8 10*3/uL 3.6 - 11.2 06/06 Specimen Type: BLOOD No comment entered. Ordering Provider: MONAE TRJUILLO Report Released Date/Time: Jun 06, 2024 02:27 PM Reporting Lab: [address] [address] Performing Lab: [address] [address] [facility] CBC ERYTHROCYT ES [#/VOLUME] IN BLOOD BY AUTOMATED COUNT 5.39 10*6/uL 4.10 - 5.70 06/06 Specimen Type: BLOOD No comment entered. Ordering Provider: MONAE TRUJILLO Report Released Date/Time: Jun 06, 2024 02:27 PM Reporting Lab: [address] [address] Performing Lab: [address] [address] [facility] CBC HEMOGLOBIN [MASS/VOLU ME] IN BLOOD 17.3 g/dL 13.1 - 16.8 06/06 H Specimen Type: BLOOD No comment entered. Ordering Provider: MONAE TRUJILLO Report Released Date/Time: Jun 06, 2024 02:27 PM Reporting Lab: [address] [address] Performing Lab: [address] [address] [facility] CBC HEMATOCRIT [VOLUME FRACTION] OF BLOOD 49.8 38.2 - 48.4 06/06 H Specimen Type: BLOOD No comment entered. Ordering Provider: MONAE TRUJILLO Report Released Date/Time: Jun 06, 2024 02:27 PM Reporting Lab: [address] [address] Performing Lab: [facility] [place] [address] [address] [facility] CBC MCV [ENTITIC VOLUME] BY AUTOMATED COUNT 92.4 fL 80.0 - 100.0 06/06 Specimen Type: BLOOD No comment entered. Ordering Provider: MONAE TRUJILLO Report Released Date/Time: Jun 06, 2024 02:27 PM Reporting Lab: [address] [address] Performing Lab: [address] [address] [facility] CBC MCH [ENTITIC MASS] BY AUTOMATED COUNT 32.1 pg 27.0 - 34.0 06/06 Specimen Type: BLOOD No comment entered. Ordering Provider: MONAE TRUJILLO Report Released Date/Time: Jun 06, 2024 02:27 PM Reporting Lab: [address] [address] Performing Lab: [address] [address] [facility] CBC MCHC [MASS/VOLU ME] BY AUTOMATED COUNT 34.7 g/dL 33.0 - 36.0 06/06 Specimen Type: BLOOD No comment entered. Ordering Provider: MONAE TRUJILLO Report Released Date/Time: Jun 06, 2024 02:27 PM Reporting Lab: [address] [address] Performing Lab: [address] [address] [facility] CBC PLATELETS [#/VOLUME] IN BLOOD BY AUTOMATED COUNT 282 10*3/uL 150 - 400 06/06 Specimen Type: BLOOD No comment entered. Ordering Provider: MONAE TRUJILLO Report Released Date/Time: Jun 06, 2024 02:27 PM Reporting Lab: [address] [address] Performing Lab: [address] [place] [address] [facility] CBC PLATELET MEAN VOLUME [ENTITIC VOLUME] IN BLOOD BY AUTOMATED COUNT 10.4 fL 7.5 - 11.2 06/06 Specimen Type: BLOOD No comment entered. Ordering Provider: MONAE TRUJILLO Report Released Date/Time: Jun 06, 2024 02:27 PM Reporting Lab: [address] [address] Performing Lab: [address] [address] [facility] CBC ERYTHROCYT E DISTRIBUTI ON WIDTH [RATIO] BY AUTOMATED COUNT 12.5 11.8 - 15.1 06/06 Specimen Type: BLOOD No comment entered. Ordering Provider: MONAE TRUJILLO Report Released Date/Time: Jun 06, 2024 02:27 PM Reporting Lab: [address] [address] Performing Lab: [address] [address] [facility] CBC LYMPHOCYTE S/100 LEUKOCYTES IN BLOOD BY AUTOMATED COUNT 23 06/06 Specimen Type: BLOOD No comment entered. Ordering Provider: MONAE TRUJILLO Report Released Date/Time: Jun 06, 2024 02:27 PM Reporting Lab: [address] [address] Performing Lab: [address] [address] [facility] CBC MONOCYTES/ 100 LEUKOCYTES IN BLOOD BY AUTOMATED COUNT 10 06/06 Specimen Type: BLOOD No comment entered. Ordering Provider: MONAE TRUJILLO Report Released Date/Time: Jun 06, 2024 02:27 PM Reporting Lab: [address] [address] Performing Lab: [address] [address] [facility] CBC NEUTROPHIL S/100 LEUKOCYTES IN BLOOD BY AUTOMATED COUNT 64 06/06 Specimen Type: BLOOD No comment entered. Ordering Provider: MONAE TRUJILLO Report Released Date/Time: Jun 06, 2024 02:27 PM Reporting Lab: [address] [address] Performing Lab: [address] [phone] [place] [address] CBC EOSINOPHIL S/100 LEUKOCYTES IN BLOOD BY AUTOMATED COUNT 2 06/06 Specimen Type: BLOOD No comment entered. Ordering Provider: MONAE TRUJILLO Report Released Date/Time: Jun 06, 2024 02:27 PM Reporting Lab: [place] [phone] Performing Lab: [place] [phone] CBC BASOPHILS/ 100 LEUKOCYTES IN BLOOD BY AUTOMATED COUNT 1 06/06 Specimen Type: BLOOD No comment entered. Ordering Provider: MONAE TRUJILLO Report Released Date/Time: Jun 06, 2024 02:27 PM Reporting Lab: [address] [address] Performing Lab: [address] [address] [facility] CBC LYMPHOCYTE S [#/VOLUME] IN BLOOD BY AUTOMATED COUNT 1.56 10*3/uL 0.77 - 4.50 06/06 Specimen Type: BLOOD No comment entered. Ordering Provider: MONAE TRUJILLO Report Released Date/Time: Jun 06, 2024 02:27 PM Reporting Lab: [address] [address] Performing Lab: [address] [address] [facility] CBC MONOCYTES [#/VOLUME] IN BLOOD BY AUTOMATED COUNT 0.65 10*3/uL 0.19 - 0.80 06/06 Specimen Type: BLOOD No comment entered. Ordering Provider: MONAE TRUJILLO Report Released Date/Time: Jun 06, 2024 02:27 PM Reporting Lab: [address] [address] Performing Lab: [address] [address] [facility] CBC NEUTROPHIL S [#/VOLUME] IN BLOOD BY AUTOMATED COUNT 4.37 10*3/uL 2.10 - 8.00 06/06 Specimen Type: BLOOD No comment entered. Ordering Provider: MONAE TRUJILLO Report Released Date/Time: Jun 06, 2024 02:27 PM Reporting Lab: [place] [phone] Performing Lab: [address] [phone] [place] [address] CBC EOSINOPHIL S [#/VOLUME] IN BLOOD BY AUTOMATED COUNT 0.14 10*3/uL 0.00 - 0.60 06/06 Specimen Type: BLOOD No comment entered. Ordering Provider: MONAE TRJUILLO Report Released Date/Time: Jun 06, 2024 02:27 PM Reporting Lab: [address] [address] Performing Lab: [address] [place] [address] CBC BASOPHILS [#/VOLUME] IN BLOOD BY AUTOMATED COUNT 0.08 10*3/uL 0.00 - 0.20 06/06 Specimen Type: BLOOD No comment entered. Ordering Provider: MONAE TRUJILLO Report Released Date/Time: Jun 06, 2024 02:27 PM Reporting Lab: [address] [address] Performing Lab: [address] [address] [facility] PROST. SPECIFIC AG.(PB-S TL) PROSTATE SPECIFIC AG [MASS/VOLU ME] IN SERUM OR PLASMA 2.843 ng/mL 0 - 4 06/06 Specimen Type: SERUM Comment: The listed sex of this patient may not be a typical indication for this test. Therefore, reference ranges or interpretiv e criteria listed may not be valid. Clinical correlation suggested. Ordering Provider: MONAE TRUJILLO Report Released Date/Time: Jun 06, 2024 02:27 PM Reporting Lab: [place] [address] Performing Lab: [address] HIV COMBO FOURTH GENERATI ON (STL) HIV 1+2 AB+HIV1 P24 AG [PRESENCE] IN SERUM OR PLASMA BY IMMUNOASSA Y Nonreact daniel 06/06 Specimen Type: SERUM No comment entered. Ordering Provider: MONAE TRUJILLO Report Released Date/Time: Jun 06, 2024 02:27 PM Reporting Lab: [address] [address] Performing Lab: [address] [phone] [place] [address] HEP C Ab HCV Ab (L) HEPATITIS C VIRUS AB [PRESENCE] IN SERUM Nonreact daniel 06/06 Specimen Type: SERUM Comment: The listed sex of this patient may not be a typical indication for this test. Therefore, reference ranges or interpretiv e criteria listed may not be valid. Clinical correlation suggested. Ordering Provider: MONAE TRUJILLO Report Released Date/Time: Jun 06, 2024 02:27 PM Reporting Lab: [address] [address] Performing Lab: [address] [address] [place] [address] HGA1C HEMOGLOBIN A1C/HEMOGL OBIN.TOTAL IN BLOOD 5.1 4.0 - 6.0 06/06 Specimen Type: BLOOD No comment entered. Ordering Provider: MONAE TRUJILLO Report Released Date/Time: Jun 06, 2024 02:27 PM Reporting Lab: [address] [address] Performing Lab: [address] [address] [facility] LIPID PANEL (STL) CHOLESTERO L [MASS/VOLU ME] IN SERUM OR PLASMA 186 mg/dL 0 - 200 06/06 Specimen Type: PLASMA Comment: No hemolysis noted. Ordering Provider: MONAE TRUJILLO Report Released Date/Time: Jun 06, 2024 02:27 PM Reporting Lab: [address] [address] Performing Lab: [address] [address] [facility] LIPID PANEL (STL) TRIGLYCERI DE [MASS/VOLU ME] IN SERUM OR PLASMA 183 mg/dL 0 - 150 06/06 H Specimen Type: PLASMA Comment: No hemolysis noted. Ordering Provider: MONAE TRUJILLO Report Released Date/Time: Jun 06, 2024 02:27 PM Reporting Lab: [address] [address] Performing Lab: [address] [address] [facility] LIPID PANEL (STL) CHOLESTERO L IN LDL [MASS/VOLU ME] IN SERUM OR PLASMA BY CALCULATIO N 106 mg/dL 06/06 Specimen Type: PLASMA Comment: No hemolysis noted. Ordering Provider: MONAE TRUJILLO Report Released Date/Time: Jun 06, 2024 02:27 PM Reporting Lab: [address] [address] Performing Lab: [address] [address] [facility] LIPID PANEL (STL) CHOLESTERO L IN HDL [MASS/VOLU ME] IN SERUM OR PLASMA 43 mg/dL 40 06/06 Specimen Type: PLASMA Comment: No hemolysis noted. Ordering Provider: MONAE TRUJILLO Report Released Date/Time: Jun 06, 2024 02:27 PM Reporting Lab: [facility] [address] [facility] [address] Performing Lab: [facility] [address] [facility] [address] [facility] Vital Signs Combined list of inpatient and outpatient Vital Signs from Department of [facility] and [facility], ranging from 12 months to all on record, depending upon the facility. Vital Sign Value Date Comments Source SYSTOLIC BLOOD PRESSURE 170 06/06/2024 13:23:03 [facility] DIASTOLIC BLOOD PRESSURE 98 06/06/2024 13:23:03 [facility] PULSE OXIMETRY 96 06/06/2024 13:23:03 [facility] WEIGHT 224.3 06/06/2024 13:23:03 [facility] BMI 33 kg/m2 06/06/2024 13:23:03 [facility] PAIN 0 06/06/2024 13:23:03 [facility] HEIGHT 69 06/06/2024 13:23:03 [facility] TEMPERATURE 98.6 06/06/2024 13:23:03 [facility] PULSE 61 06/06/2024 13:23:03 [facility] RESPIRATION 18 06/06/2024 13:23:03 [facility] Encounters Combined list of: 1) Encounters from [facility] of Veterans Affairs facilities going backup to the last 18 months, not all VA inpatient encounters are included; 2) Encounters from the Department of [facility] facilities going backup to 280 months. Location Location Details Encounter Type Encounter Number Reason For Visit Attending Provider ADM Date DC Date Status Disposition Source [address] [place] [address]([facility]) OUTPATIENT [id number] Part 2, flight physica ARMIDA Li 01/05 Released w/o Limitations [employer](F light Medicin e Group Practic e) [employer]([facility]) OUTPATIENT [id number] Continu ing cold symptom s leatha AMOS ABDIRIZAK A 01/29 Released w/o Limitations [employer]([facility] light Medicin e Group Practic e) [employer]([facility]) OUTPATIENT [id number] PART II PHY-mjj SILVINO DYSONHoang A 09/21 Released w/o Limitations [employer](F light Medicin e Group Practic e) [employer] [employer](F light Medicine [employer] [facility]) OUTPATIENT [id number] INCOMIN G [facility] RAY ALBERTO W 01/22 Released with Work/Duty Limitations [employer] [employer] ([facility]light Medicin e [employer] [facility]) [employer] [employer]([facility] light [facility] [employer] [facility]) OUTPATIENT [id number] PHA WING [facility] KEHINDE BOWERS E 01/07 Released w/o Limitations [employer] [employer] (Flight Medicin e [employer] [facility]) [employer] [employer](O ptometry Clinic [facility]) OUTPATIENT [id number] [facility] [employer] MILLY OLIVER 01/07 Released w/o Limitations [employer] [employer] (Opt[facility] try [facility]) [employer] [employer](F light Medicine [employer] [facility]) OUTPATIENT [id number] VISIT [facility] CHRISTENSE N KEHINDE E 02/02 Released w/o Limitations [employer] [employer] (Flight Medicin e [employer] [facility]) [employer] [employer](F light Medicine [employer] [facility]) TELE CONSULT [id number] discuss situati on for relaxat ion and meds. CHRISTENSE N KEHINDE E 03/11 [employer] [employer] (Flight Medicin e [facility]) [employer] [employer](F light Medicine [employer] [facility]) TELE CONSULT [id number] discuss KEHINDE Quintero E 03/17 [employer] [employer] (Flight Medicin e [facility]) [employer] [employer](F light Medicine [employer] [facility]) OUTPATIENT [id number] PHA WING EYE 0930 PKVICKIE PHAN N 11/09 Released w/o Limitations [employer] [employer] (Flight Medicin e [employer] [facility]) [employer] [employer]([facility] ptometry [facility]) OUTPATIENT [id number] [facility] CC- Routine Exam TYSHAWN RON A 11/09 Released w/o Limitations [employer] [employer] ([facility]) [employer] [employer]([facility]ometry [facility]) OUTPATIENT [id number] TYSHAWN RON A 11/14 Released w/o Limitations [employer] [employer] ([facility]) [employer] [place] ([facility])(Fam adenike Practice Non-GME FHI1) OUTPATIENT [id number] Medical Right Start ARIA CISNEROSCARL Seay 01/01 Released w/o Limitations [employer] [place] ([facility])(F amily Practic e Non-GME FHI1) [employer] [place] ([facility] Flight Medicine Tm) OUTPATIENT [id number] HECTOR Teran 03/15 Released w/o Limitations [employer] [place] ([facility])(S cott Flight Medicin e Tm) [employer] [place] ([facility] Tm) OUTPATIENT [id number] ZONIA Ashley 07/06 Released w/o Limitations [employer] [place] ([facility])(S cott Flight Medicin e Tm) [employer] [place] ([facility])(Phy sical Therapy) OUTPATIENT [id number] ANKLE SPRAIN RIGHT WITHERELL, DELLA R 07/18 Released w/o Limitations [employer] ([facility])(P hysical Therapy ) [facility] [employer] ([facility])([facility] Flight Medicine ) OUTPATIENT [id number] S.C. RTFS HECTOR COLEMAN 07/19 Released w/o Limitations [employer] ([facility])(S cott Flight Medicin e Tm) [facility] [employer] ([facility])(Phy sical Therapy) OUTPATIENT [id number] DELLA BANERJEE 08/01 Released w/o Limitations [employer] ([facility])(P hysical Therapy ) [facility] [employer] [place] ([facility])([facility] Flight Medicine ) OUTPATIENT [id number] rec rev and [id number] trans MONIQUE WILI L 09/07 Released w/o Limitations [employer] ([facility])(S cott Flight Medicin e Tm) [facility] Medical [facility] [employer] [place] ([facility])(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 Flight Medicine ) OUTPATIENT [id number] S.C. Paperwo rk review and review of optho visit results GRABIEL OTERO 04/11 Released w/o Limitations [employer] ([facility])(S cott [facility]) [address] [place] [address] [employer] ([facility])(Opt ometry) OUTPATIENT [id number] 3 mo f/u, [id number] , OCT DUNG ALBERTO 06/12 Released w/o Limitations [employer] ([facility])(O ptometr y) [employer] [facility])([facility]) DENTAL [id number] Admin - Hyperte nsion consult DORENE BRADLEY 10/25 [facility])(D ental Clinic) [facility])([facility] ) TELE CONSULT [id number] BP JANETT James 10/30 [facility])(S cott [facility] Tm) [facility])([facility] ) OUTPATIENT [id number] S.C. sent from dental for bp HECTOR COLEMAN A 10/31 Released w/o Limitations [facility] [employer] [facility])(S [facility]) [facility])([facility] Medicine ) TELE CONSULT [id number] JANETT Garner 11/01 [facility])(S cott [facility] Medic[facility] e Tm) [facility])([facility] Medicine ) TELE CONSULT [id number] 1042 JANETT Arias 11/06 [facility])(S cott [facility] Medicin e Tm) [facility])([facility] Medicine ) TELE CONSULT [id number] JANETT Garner 11/19 [facility])(S cott [facility] Medicin e Tm) [facility])([facility] ) TELE CONSULT [id number] DUNG Willson 11/25 [facility])(S cott [facility] Medicin e Tm) [facility])([facility] Medicine ) TELE CONSULT [id number] JANETT Randle 11/28 [facility])(S cott [facility] Medicin e Tm) [facility])([facility] Medicine ) TELE CONSULT [id number] Elevate d BPs GRETCHENDUNG MAK 12/05 [employer] ([facility])(S cott [facility] Tm) [employer] ([facility])([facility] ) OUTPATIENT [id number] day 1 of 5 day bp check WAI BOONE P 12/31 Released w/o Limitations [employer] ([facility])(S cott [facility] Tm) [employer] [facility] ([facility])([facility] Medicine ) OUTPATIENT [id number] bp check day 2 JERARDO BRADEN W 01/01 Released w/o Limitations [employer] ([facility])(S cott [facility] Medicin e Tm) [employer] ([facility])([facility] Medicine ) OUTPATIENT [id number] phy. [phone] HECTOR COLEMAN A 01/02 Released w/o Limitations [employer] [facility] ([facility])(S cott [facility] Tm) [employer] [facility] ([facility])([facility] ) OUTPATIENT [id number] day 4 of 5 day bp check JERARDO BRADEN W 01/03 Released w/o Limitations [employer] [facility] ([facility])(S cott [facility] e Tm) [employer] [facility] ([facility])([facility] ) OUTPATIENT [id number] day 5 of 5 day bp check HECTOR COLEMAN A 01/06 Released w/o Limitations [employer] [facility] ([facility])(S cott [facility] e Tm) [employer] ([facility])([facility] ) TELE CONSULT [id number] Sleep study request ed by ACS LIBORIO KITCHEN 01/31 [employer] [facility] ([facility])(S cott [facility] Tm) [facility] [employer] [facility] ([facility])([facility] Medicine ) TELE CONSULT [id number] ACS Appt JANETT CHAN 05/21 Referred for Appointment [employer] [facility] ([facility])(S cott Flight Medic[facility] e Tm) [facility] [employer] [facility] ([facility])([facility] Medicine ) TELE CONSULT [id number] STAT Referra JANETT Hdez 05/27 Referred for Appointment [employer] [facility] ([facility])(S cott [facility] Medic[facility] e Tm) [employer] [facility] ([facility])([facility] ) TELE CONSULT [id number] RTFS JANETT CHAN 07/21 Referred for Appointment [employer] [facility] ([facility])(S cott [facility] Medic[facility] e Tm) [employer] [facility] ([facility])([facility] ) TELE CONSULT [id number] Med request RADHA DAMON R 09/15 [employer] [place] ([facility])(S cott [facility] Tm) [employer] [place] ([facility])([facility] ) OUTPATIENT [id number] S.C. High BP 160/114 ZONIA GILMORE 11/26 Released w/o Limitations [employer] [facility] ([facility])(S cott [facility] Tm) [employer] ([facility])([facility] ) OUTPATIENT [id number] 5 DAY BP CHECK ZONIA GILMORE 11/28 Released w/o Limitations [employer] ([facility])(S cott [facility] Tm) [employer] [facility] ([facility])([facility] ) OUTPATIENT [id number] b/p check day 2 JESICA SPENCER R 12/01 Released w/o Limitations [employer] [facility] ([facility])(S cott [facility] Tm) [employer] [facility] ([facility])([facility] ) OUTPATIENT [id number] WALK-IN BP 4TH DAY JESICA SPENCER R 12/02 Released w/o Limitations [employer] [facility] ([facility])(S cott [facility] Tm) [employer] [place] ([facility])([facility] ) OUTPATIENT [id number] HTN TORSTEN Boucher 12/18 Released w/o Limitations [employer] [facility] ([facility])(S cott [facility] Tm) [employer] ([facility])([facility] ) TELE CONSULT [id number] Referra JANETT Hdez 12/22 Referred for Appointment [employer] ([facility])(S cott [facility] Tm) [employer] ([facility])([facility] ) TELE CONSULT [id number] abn CT- Scan finding JANETT CHAN 12/22 Referred for Appointment [employer] ([facility])(S cott [facility] Tm) [employer] ([facility])([facility] ) OUTPATIENT [id number] ANNUAL PHA WAI BOONE 12/26 Released w/o Limitations [employer] ([facility])(S cott [facility] Tm) [employer] [facility])([facility] ) OUTPATIENT [id number] F/U PER TORSTEN MERCEDES 01/02 Released w/o Limitations [employer] ([facility])(S cott [facility] Tm) [employer] [facility])([facility] ) TELE CONSULT [id number] abn MRI liver JANETT CHAN 01/05 Referred for Appointment [employer] [facility])(S cott [facility] Medic[facility] e Tm) [employer] [facility])(Opt ometry) OUTPATIENT [id number] visual field defect DUNG ALBERTO 01/06 Released w/o Limitations [employer] ([facility])(O ptometr y) [employer] ([facility])([facility] ) TELE CONSULT [id number] Labs/Ra ds JANETT CHAN 01/29 Referred for Appointment [employer] ([facility])(S cott Flight Medicin e Tm) [employer] ([facility])([facility] Medicine ) TELE CONSULT [id number] Referra JANETT Persaud 02/16 Referred for Appointment [employer] ([facility])(S cott Flight Medicin e Tm) [employer] ([facility])([facility] ) OUTPATIENT [id number] RTFS ZONIA GILMORE 02/16 Released w/o Limitations [employer] ([facility])(S cott Flight Medicin e Tm) [employer] ([facility])([facility] Flight Medicine Tm) TELE CONSULT [id number] JANETT Cortez 03/10 Referred for Appointment [employer] ([facility])(S cott Flight Medicin e Tm) [employer] ([facility])([facility] Flight Medicine Tm) TELE CONSULT [id number] JANETT Calloway 03/19 Referred for Appointment [employer] ([facility])(S cott Flight Medicin e Tm) [employer] ([facility])([facility] Flight Medicine Tm) TELE CONSULT [id number] JANETT Garner 04/23 Referred for Appointment [employer] ([facility])(S cott Flight Medicin e Tm) [employer] ([facility])([facility] Medicine ) TELE CONSULT [id number] JANETT Cortez 06/17 Referred for Appointment [employer] ([facility])(S cott Flight Medicin e Tm) [employer] ([facility])([facility] ) TELE CONSULT [id number] JANETT Cortez 08/13 Referred for Appointment [employer] ([facility])(S cott Flight Medicin e Tm) [employer] ([facility])([facility] Medicine ) TELE CONSULT [id number] JANETT Calloway 08/14 Referred for Appointment [employer] ([facility])(S cott Flight Medicin e Tm) [employer] ([facility])([facility] Flight Medicine Tm) OUTPATIENT [id number] ISACC Álvarez 09/14 Released w/o Limitations [employer] ([facility])(S cott Flight Medicin e Tm) [employer] ([facility])([facility] Tm) TELE CONSULT [id number] RENEW SHELLY RUBIO 09/16 [employer] ([facility])(S cott Flight Medicin e Tm) [employer] ([facility])(Phy sical Therapy) OUTPATIENT [id number] joint pain, localiz ed in the left TONI Calvo 09/30 Released w/o Limitations [address] [place] [address] [employer] ([facility])(P hysical Therapy ) [address] [place] [address] [employer] ([facility])(Phy sical Therapy) OUTPATIENT [id number] shouldeliezer guerrier CYNTHIA AHUJA 10/06 Released w/o Limitations [address] [place] [address] [facility] ([facility])(P hysical Therapy ) [address] [place] [address] [facility])(Phy sical Therapy) OUTPATIENT [id number] left jayson COLIN Lyn 10/20 Released w/o Limitations [address] [place] [address] [facility] ([facility])(P hysical Therapy ) [address] [place] [address] [facility])(Phy sical Therapy) OUTPATIENT [id number] left hsoulde chey CYNTHIA AHUJA 10/22 Released w/o Limitations [address] [place] [address] [facility])(P hysical Therapy ) [address] [place] [address] [facility])(Phy sical Therapy) OUTPATIENT [id number] TONI ARNETT 11/03 Released w/o Limitations [address] [place] [address] [employer] [facility] ([facility])(P hysical Therapy ) [address] [place] [address] [facility])([facility] Tm) TELE CONSULT [id number] Notes Entered by: Mode CATES 16 Nov 2011 1632 ------- ------- ------- ------- -- CATHRYN He 11/[address] [place] [address] [employer] [facility] ([facility])(S cott Flight Medicin e Tm) [address] [place] [address] [facility])(Phy sical Therapy) OUTPATIENT [id number] TONI Calvo 12/09 Released w/o Limitations [address] [place] [address] [employer] ([facility])(P hysical Therapy ) [address] [place] [address] [facility])([facility] Tm) TELE CONSULT [id number] Notes Entered by: Mode CATES 16 Dec 2011 0741 ------- ------- ------- ------- -- Sleep Med Refill CATHRYN CATES [address] [place] [address] [facility])(S [facility] Flight Medicin e Tm) [address] [place] [address] [facility])([facility] Medicine ) OUTPATIENT [id number] sleep issues TORSTEN IRVING 12/30 Released w/o Limitations [address] [place] [address] [facility])(S [facility] Flight Medicin e Tm) [address] [place] [address] [facility])([facility] Flight Medicine ) OUTPATIENT [id number] flight physica l, yes wx AURORA MELENDEZ 12/31 Released w/o Limitations [address] [place] [address])(S [facility] Flight Medicin e Tm) [address] [place] [address])(Opt ometry) OUTPATIENT [id number] routine KIRK LINN 01/03 Released w/o Limitations [address] [place] [address] [facility])(O ptometr y) [address] [place] [address] [facility])([facility] Medicine ) TELE CONSULT [id number] Notes Entered by: JANETT CHAN 16 Mar 2012 1405 ------- ------- ------- ------- -- labs JANETT CHAN 03/16 Referred for Appointment [address] [place] [address] [facility])(S [facility] Flight Medicin e Tm) [address] [place] [address] [facility])([facility] Medicine ) OUTPATIENT [id number] elbow pain ISACC KAPADIA 03/17 Released w/o Limitations [address] [place] [address] [facility])(S [facility] Flight Medicin e Tm) [address] [place] [address])(Phy sical Therapy) OUTPATIENT [id number] LATERAL EPICOND YLITIS (TENNIS ELBOW) LEFT ZONIA GOMEZ 04/25 Released w/o Limitations [address] [place] [address] [facility])(P hysical Therapy ) [address] [place] [address] [facility])([facility] Medicine ) TELE CONSULT [id number] Notes Entered by: JANETT CHAN 16 May 2012 1225 ------- ------- ------- ------- -- AURORA Whittaker 05/[address] [place] [address])(S cott Flight Medicin e Tm) [address] [place] [address])(Phy sical Therapy) OUTPATIENT [id number] ZONIA GOMEZ 05/19 Released w/o Limitations [address] [place] [address])(P hysical Therapy ) [address] [place] [address])([facility] Flight Medicine ) OUTPATIENT [id number] Retirem ent TORSTEN Bryan 05/23 Released w/o Limitations [address] [place] [address])(S cott Flight Medic[facility] e Tm) [address] [place] [address])([facility] Flight Medicine ) TELE CONSULT [id number] Notes Entered by: YOMAIRA HEATON 07 Jul 2012 1709 ------- ------- ------- ------- -- Network Results - GASTROE NTEROLO GY 07/06/12 ELMO CHAVARRIA 07/[address] [place] [address])(S cott [facility] Tm) [address] [place] [address])([facility] Flight Medicine ) TELE CONSULT [id number] Notes Entered by: YOMAIRA HEATON 08 Jul 2012 0927 ------- ------- ------- ------- -- Network Results - GASTROE NTEROLO GY 07/05/12 ELMO CHAVARRIA 07/[address] [place] [address])(S cott Flight Medic[facility] e Tm) [facility] Outpatient Encounter [id number] 07/18 [facility] Outpatient Encounter [id number] 07/30 [facility] Outpatient Encounter [id number] 05/06 [facility] Outpatient Encounter [id number] 05/18 [facility] Outpatient Encounter [id number] 06/06 [facility] OFFICE O/P EST MOD 30 MIN [id number]. [id number] Diagnos is: ICD-10- CM I10 Essenti al (primar y) hyperte nsion DAVINA PALM 06/06 [facility] Outpatient Encounter [id number] COY ALBERTO MMY E 06/13 [facility] [place] [id number]. [id number] Diagnos is: ICD-10- CM E66.9 Obesity , unspeci fied SIGIFREDO MCDUFFIE L 07/04 [facility] PSYTX W PT 45 MINUTES [id number] Diagnos is: ICD-10- CM F41.9 Anxiety disorde r, unspeci fied PEPITO GIRARD 08/03 [facility] Outpatient Encounter [id number] PEPITO GIRARD 09/06 [facility] Outpatient Encounter [id number] PEPITO GIRARD JACKSON 10/19 [facility] Outpatient Encounter [id number] 10/19 [facility] Outpatient Encounter [id number] PEPITO GIRARD VEENA PAZ 10/31 [facility] PSYTX W PT 30 MINUTES [id number]. [id number] Diagnos is: ICD-10- CM F41.1 General ized anxiety disorde r PEPITO GIRARD JACKSON 11/30 [facility] Outpatient Encounter [id number] 12/19 [facility] Procedures Combined list of: 1) Procedures from Department of [facility] facilities going back up to thelast 18 months, not all [place] non-surgical procedures are included; 2) All procedures from the Department of Defense facilities. Procedure Procedure Type Code Date Perfomer Comments Sourc e No data available for this section [facility] SCREENING TEST, PURE TONE, AIR ONLY 2002 [facility] SCREENING TEST, PURE TONE, AIR ONLY 2004 [facility] DETERMINATION OF REFRACTIVE STATE 2004 [facility] PROFESSIONAL SER FOR ALLERGEN IMMUNOTHER IN THE OFFICE/INSTITUTION OF THE PRESCRIBING PHYSICIAN/OTH QUALIFIED HEALTH NEWSPAPER REPORTER,INCLUD ING PROVISION OF ALLERGENIC EXTRACT;2/MORE INJECTIONS 1999 [facility] THERAPEUTIC PROCEDURE, 1 OR MORE AREAS, EACH 15 MINUTES; THERAPEUTIC EXERCISES TO DEVELOP STRENGTH AND ENDURANCE, RANGE OF MOTION AND FLEXIBILITY 2011 [facility] PHYSICAL THERAPY EVALUATION 2011 [facility] FUNDUS PHOTOGRAPHY WITH INTERPRETATION AND REPORT 2011 [facility] COLOR VISION EXAMINATION, EXTENDED, EG, ANOMALOSCOPE OR EQUIVALENT 2011 [facility] THERAPEUTIC PROCEDURE, 1 OR MORE AREAS, EACH 15 MINUTES; THERAPEUTIC EXERCISES TO DEVELOP STRENGTH AND ENDURANCE, RANGE OF MOTION AND FLEXIBILITY 2011 [facility] PHYSICAL THERAPY RE-EVALUATION 2011 [facility] THERAPEUTIC PROCEDURE,1 OR MORE AREAS,EACH 15 MINUTES;NEUROMUSCUL AR REEDUCATION OF MOVEMENT,BALANCE,CO ORDINATION,KINESTHE TIC SENSE,POSTURE,AND/O R PROPRIOCEPTION FOR SITTING AND/OR STANDING ACTIVITIES 2011 [facility] THERAPEUTIC PROCEDURE, 1 OR MORE AREAS, EACH 15 MINUTES; THERAPEUTIC EXERCISES TO DEVELOP STRENGTH AND ENDURANCE, RANGE OF MOTION AND FLEXIBILITY 2011 [facility] MANUAL THERAPY TECHNIQUES (EG, MOBILIZATION/ MANIPULATION, MANUAL LYMPHATIC DRAINAGE, MANUAL TRACTION), 1 OR MORE REGIONS, EACH 15 MINUTES 2010 [facility] THERAPEUTIC PROCEDURE, 1 OR MORE AREAS, EACH 15 MINUTES; MASSAGE, INCLUDING EFFLEURAGE, PETRISSAGE AND/OR TAPOTEMENT (STROKING, COMPRESSION, PERCUSSION) 2010 [facility] FITTING OF SPECTACLES, EXCEPT FOR APHAKIA; BIFOCAL 2010 [facility] ELECTROCARDIOGRAM, ROUTINE ECG WITH AT LEAST 12 LEADS; WITH INTERPRETATION AND REPORT 2010 [facility] BLOOD PRESSURE MEASURED (CKD)(DM) 2009 [facility] PURE TONE AUDIOMETRY (THRESHOLD); AIR ONLY 2009 [facility] BLOOD PRESSURE MEASURED (CKD)(DM) 2009 [facility] BLOOD PRESSURE MEASURED (CKD)(DM) 2009 [facility] SCANNING COMPUTERIZED OPHTHALMIC DIAGNOSTIC IMAGING, POSTERIOR SEGMENT, (EG, SCANNING LASER) WITH INTERPRETATION AND REPORT, UNILATERAL 2008 [facility] SCANNING COMPUTERIZED OPHTHALMIC DIAGNOSTIC IMAGING, POSTERIOR SEGMENT, (EG, SCANNING LASER) WITH INTERPRETATION AND REPORT, UNILATERAL 2008 [facility] TYPHOID VACCINE, CAPSULAR POLYSACCHARIDE (VICPS), FOR INTRAMUSCULAR USE 2008 [facility] THERAPEUTIC PROCEDURE, 1 OR MORE AREAS, EACH 15 MINUTES; THERAPEUTIC EXERCISES TO DEVELOP STRENGTH AND ENDURANCE, RANGE OF MOTION AND FLEXIBILITY 2007 [facility] EXERCISE EQUIPMENT 2007 [facility] PROSTATE CANCER SCREENING; DIGITAL RECTAL EXAMINATION 2003 [facility] SCREENING TEST OF VISUAL ACUITY, QUANTITATIVE, BILATERAL 2007 [facility] DETERMINATION OF REFRACTIVE STATE 2007 [facility] VIS FUNCT SCREEN,AUTOMAT/SEMI -AUTOMAT BILAT QUANT DETERM VISUAL ACUITY,OCULAR ALIGN,COLOR VISION,PSEUDOISOCHR OMAT PLATES,& FIELD VIS (MAY INC ALL/SOME SCRN DETERM FOR CONTRAST SENSITIV,VIS UND GLARE) 2007 [facility] SCREENING TEST OF VISUAL ACUITY, QUANTITATIVE, BILATERAL 2006 [facility] Physical Therapy Service Re-Evaluation Physical Therapy Service Re-Evaluation 03157 2011 ZONIA GOMEZ [facility] Physical Therapy: ___ Se ion Segments, 15 Minutes Each Physical Therapy: ___ Session Segments, 15 Minutes Each 47061 2011 ZONIA GOMEZ Reviewed exercise techniques for stretching and eccentric strengthening. Reviewed his deep tissue massage. One-on-one therapeutic exercises x12 minutes [facility] Physical Therapy: ___ Se ion Segments, 15 Minutes Each Physical Therapy: ___ Session Segments, 15 Minutes Each 91354 2011 ZONIA GOMEZ Strengthening and ROM program under direct supervision x 15 minutes. Pt tolerated treatment well. [facility] Physical Therapy Neuromuscular Re-education Physical Therapy Neuromuscular Re-education 96600 2011 ZONIA GOMEZ neuromuscular retraining and eccentric strengthening under direct supervision x 10 minutes. Pt tolerated treatment well. [facility] Physical Therapy Service Evaluation Physical Therapy Service Evaluation 71011 2011 ZONIA GOMEZ Fundus Photography Fundus Photography 07133 2011 KIRK LINN Visual Moran Test Extended Examination Visual Moran Test Extended Examination 82331 2011 KIRK LINN Scanning Computerized Ophthalmic Diagnostic Imaging Optic Nerve Scanning Computerized Ophthalmic Diagnostic Imaging Optic Nerve 65749 2011 KIRK LINN Spectacles Services Fitting Bifocal Except For Aphakia Spectacles Services Fitting Bifocal Except For Aphakia 96501 2011 KIRK LINN Determination Of Refractive State Determination Of Refractive State 82076 2011 KIRK LINN Ophthalmological Prior Patient Start Comprehensive Care Ophthalmological Prior Patient Start Comprehensive Care 75583 2011 KIRK LINN Extensive Color Vision Testing Extensive Color Vision Testing 00020 2011 AURORA MELENDEZ Tonometry Tonometry 89256 2011 AURORA MELENDEZ Threshold Audiogram (Pure Tone) Threshold Audiogram (Pure Tone) 23591 2011 AURORA MELENDEZ Electrocardiogram Electrocardiogram 84552 12/31 AURORA MELENDEZ Visual Function Screening Visual Function Screening 38379 2011 AURORA MELENDEZ Screening Test Of Visual Acuity, Quantitative, Bilateral Screening Test Of Visual Acuity, Quantitative, Bilateral 37512 2011 AURORA MELENDEZ [facility] Physical Therapy: ___ Se ion Segments, 15 Minutes Each Physical Therapy: ___ Session Segments, 15 Minutes Each 56873 2011 TONI ARNETT [facility] Physical Therapy Mobilization Joint Physical Therapy Mobilization Joint 06125 2011 TONI ARNETT [facility] Physical Therapy Service Re-Evaluation Physical Therapy Service Re-Evaluation 94833 2011 TONI ARNETT [facility] Physical Therapy Service Re-Evaluation Physical Therapy Service Re-Evaluation 09219 2011 TONI ARNETT [facility] Physical Therapy Neuromuscular Re-education Physical Therapy Neuromuscular Re-education 03127 2011 [facility] Mobilization Joint Physical Therapy Mobilization Joint 09140 2011 [facility] Physical Therapy: ___ Se ion Segments, 15 Minutes Each Physical Therapy: ___ Session Segments, 15 Minutes Each 02281 2011 [facility] Physical Therapy: ___ Se ion Segments, 15 Minutes Each Physical Therapy: ___ Session Segments, 15 Minutes Each 20399 2011 CLEMENTINE [facility] Physical Therapy Mobilization Joint Physical Therapy Mobilization Joint 74015 2011 [facility] Physical Therapy Neuromuscular Re-education Physical Therapy Neuromuscular Re-education 81989 2011 [facility] Physical Therapy Mobilization Joint Physical Therapy Mobilization Joint 37889 2010 [facility] Physical Therapy Neuromuscular Re-education Physical Therapy Neuromuscular Re-education 87431 2010 [facility] Physical Therapy: ___ Se ion Segments, 15 Minutes Each Physical Therapy: ___ Session Segments, 15 Minutes Each 00550 2010 [facility] Physical Therapy Ma age Physical Therapy Massage 75746 2010 TONI ARNETT Post shoulder stretch/massag e, IR and and x 15 min [facility] Osteopathic Manip Treatment (OMT) 1-2 Body Regions Involved Osteopathic Manip Treatment (OMT) 1-2 Body Regions Involved [address] and T spine Ext Gr 5 [facility] Physical Therapy Service Evaluation Physical Therapy Service Evaluation 30596 2010 TONI ARNETT Jung Spectacles Services Fitting Bifocal Except For Aphakia Spectacles Services Fitting Bifocal Except For Aphakia 25896 2010 DUNG ALBERTO Determination Of Refractive State Determination Of Refractive State 53530 2010 DUNG ALBERTO Fundus Photography Fundus Photography 00124 2010 DUNG ALBERTO Scanning Computerized Ophthalmic Diagnostic Imaging Optic Nerve Scanning Computerized Ophthalmic Diagnostic Imaging Optic Nerve 75883 2010 DUNG ALBERTO Visual Moran Test Extended Examination Visual Moran Test Extended Examination 21604 2010 DUNG ALBERTO Ophthalmological Prior Patient Start Comprehensive Care Ophthalmological Prior Patient Start Comprehensive Care 47104 2010 DUNG ALBERTO ECG 12-Lead With Interpretation And Report ECG 12-Lead With Interpretation And Report 56132 2010 WAI BOONE Tonometry Tonometry 92455 2010 WAI BOONE Extensive Color Vision Testing Extensive Color Vision Testing 12002 2010 WAI BOONE Screening Test Of Visual Acuity, Quantitative, Bilateral Screening Test Of Visual Acuity, Quantitative, Bilateral 29837 2010 WAI BOONE Audiogram (Screening) Audiogram (Screening) 24351 2010 WAI BOONE A e ment & Intervention Blood Pre ure Measured 2009 WILI MONIQUE Threshold Audiogram (Pure Tone) Threshold Audiogram (Pure Tone) 58093 2009 HECTOR COLEMAN H1 Jung Visual Function Screening Visual Function Screening 45109 2009 HECTOR COLEMAN Corrected better than 20/20 bilateral Jung A e ment & Intervention Blood Pre ure Measured 2009 WILI MONIQUE A e ment & Intervention Blood Pre ure Measured 2009 WILI MONIQUE Scanning Computerized Ophthalmic Diagnostic Imaging 2008 DUNG ALBERTO Visual Moran Test Extended Examination Visual Moran Test Extended Examination 04948 2008 DUNG ALBERTO Ophthalmological Prior Patient Start Intermediate Level Care Ophthalmological Prior Patient Start Intermediate Level Care 71398 2008 DUNG ALBERTO Spectacles Services Fitting Bifocal Except For Aphakia Spectacles Services Fitting Bifocal Except For Aphakia 13838 2008 DUNG ALBERTO Determination Of Refractive State Determination Of Refractive State 91701 2008 DUGN ALBERTO Corneal Pachymetry, Bilateral With Interpret And Report Corneal Pachymetry, Bilateral With Interpret And Report 88145 2008 DUNG ALBERTO Scanning Computerized Ophthalmic Diagnostic Imaging 2008 DUNG ALBERTO Fundus Photography Fundus Photography 34760 2008 DUNG ALBERTO Visual Moran Test Extended Examination Visual Moran Test Extended Examination 80219 2008 DUNG ALBERTO Ophthalmological New Patient Start Comprehensive Care Ophthalmological New Patient Start Comprehensive Care 94176 2008 DUNG ALBERTO Typhoid Vaccine Vi Capsular Polysaccharide, For Intramus Use Typhoid Vaccine Vi Capsular Polysaccharide, For Intramus Use 63477 2008 ZONIA GILMORE Extensive Color Vision Testing Extensive Color Vision Testing 39210 2008 ZONIA GILMORE Visual Function Screening Visual Function Screening 45409 2008 ZONIA GILMORE Screening Test Of Visual Acuity, Quantitative, Bilateral Screening Test Of Visual Acuity, Quantitative, Bilateral 83560 2008 ZONIA GILMORE Threshold Audiogram (Pure Tone) Threshold Audiogram (Pure Tone) 96564 2008 ZONIA GILMORE Physical Therapy: ___ Se ion Segments, 15 Minutes Each Physical Therapy: ___ Session Segments, 15 Minutes Each 53478 2007 DELLA BANERJEE Physical Therapy Service Re-Evaluation Physical Therapy Service Re-Evaluation 95619 2007 DELLA BANERJEE Exercise equipment 2007 DELLA BANERJEE Physical Therapy: ___ Se ion Segments, 15 Minutes Each Physical Therapy: ___ Session Segments, 15 Minutes Each 22382 2007 DELLA BANERJEE Physical Therapy Service Evaluation Physical Therapy Service Evaluation 09246 2007 DELLA BANERJEE Screening Test Of Visual Acuity, Quantitative, Bilateral Screening Test Of Visual Acuity, Quantitative, Bilateral 93952 2007 TYSHAWN RON Spectacles Services Fitting Bifocal Except For Aphakia Spectacles Services Fitting Bifocal Except For Aphakia 51541 2007 TYSHAWN RON [facility] Determination Of Refractive State Determination Of Refractive State 52192 2007 TYSHAWN RON [facility] Ophthalmological New Patient Start Comprehensive Care Ophthalmological New Patient Start Comprehensive Care 76469 2007 TYSHAWN RON [facility] Screening Test Of Visual Acuity, Quantitative, Bilateral Screening Test Of Visual Acuity, Quantitative, Bilateral 82060 2007 VICKIE CHAKRABORTY [facility] Threshold Audiogram (Pure Tone) Threshold Audiogram (Pure Tone) 53132 2007 VICKIE CHAKRABORTY [facility] ECG Performance of Tracing Only ECG Performance of Tracing Only 24799 2004 BAUTISTA DYSON [facility] Screening Test Of Visual Acuity, Quantitative, Bilateral Screening Test Of Visual Acuity, Quantitative, Bilateral 03947 2004 BAUTISTA DYSON [facility] Threshold Audiogram (Pure Tone) Threshold Audiogram (Pure Tone) 92611 2004 BAUTISTA DYSON [facility] ECG Interpretation And Report Only ECG Interpretation And Report Only 95951 2004 BAUTISTA DYSON [facility] Social History Combined list of available smoking, tobacco, and other social history from Department of Defense and Veterans Affairs facilities. Social History Type Response Date Comment [facility] e Tobacco smoking status [facility] NEVER USED 06/06/2024 [facility] This section is an empty social history section. [facility] Assessment and Plan Combined list of future care activities from Department of Defense and Veterans Affairs facilities (e.g., assessment and plan notes, appointments, orders, and referrals). Additional future care activities may be listed in the Plan of Care section. Result Assessment and Plan Date Source Assessment and Plan No data available for this section 12/22/2024 [facility] Plan of Care List of future care activities from Department of Veterans Affairs facilities. Additional future care activities may be listed in the Assessment and Plan section. Date/Time Care Activity Care Activity Detail Facili ty 01/10/2025 AMBULATORY - NONE AMBULATORY - NONE [facility] Functional Status Combined list of recent functional and cognitive assessments recorded at [facility] Functional Gooding Measurement (FIM) Scale: 1 = Total Assistance (Subject = 0% +), 2 = Maximal Assistance (Subject = 25% +), 3 = Moderate Assistance (Subject = 50% +), 4 = Minimal Assistance (Subject = 75% +), 5 = Supervision, 6 = Modified Gooding (Device), 7 = Complete Gooding (Timely, Safely). Assessment Date/Time Source Assessment Type Assessment Skill Assessment Score Assessment Details No data available for this section
--- OUTSIDE RECORDS SUMMARY | 2024-12-22 07:06 | XMS_ITS | Clinical Summary ---
Author Organization [facility] Address [address] [place] [address] Phone Care Team Providers Care Shoe Shiner Name Role Phone Michael Hamlin MD Primary Care Provider [phone] Allergies No known active allergies Medications lisinopril [...] 71 02/09/2017 3:02 AM CDT Temperature 36.3 C (97.4 F) 02/09/2017 2:46 AM CDT Respiratory Rate 18 02/09/2017 3:02 AM CDT Oxygen Saturation 98% 02/09/2017 3:02 AM CDT Inhaled Oxygen Concentration - - Weight 93 kg (205 lb) 02/09/2017 2:46 AM CDT Height 175.3 cm (5' 9 ) 02/09/2017 2:46 AM CDT Body Mass Index 30.27 02/09/2017 2:46 AM CDT Plan of Treatment Not on file Care Teams Shoe Shiner Relationship Specialty Start Date End Date Michael Hamlin MD [address] [address] PCP - General Family Medicine 02/08/17
--- OUTSIDE RECORDS SUMMARY | 2024-12-22 07:06 | XMS_ITS | Referral Summary ---
Author Organization [facility] Address [address] [place] [address] Care Team Providers Care Party Plan Sales Host/Hostess Name Role Phone Unavailable Primary Care Provider Unavailabl e Source Comments [facility],non-owned Affiliates and Associated Physician Practices is amultiple site organization consisting of ambulatory clinics and hospital sitesin [place], [place], [place] and [place]. This disclosure is being madepursuant to the Care Everywhere program and may not contain all information available regarding this patient. Last updated 18.[facility] Allergies No known active allergies Medications * [...] file Polo Acharya Personal/Family Self 1960 [address] [place] [address]
== END 2024-12-22 07:00 | disposition home or self-care (01) ==
PROVIDERS: PCP Internal Medicine; Visit Provider Internal Medicine
DX: R93.2 Abnormal findings on diagnostic imaging of liver and biliary tract (principal); R16.0 Hepatomegaly, not elsewhere classified
CPT/HCPCS: 76705

== ENCOUNTER 2025-02-26 10:39 | Outpatient (CLI) | payer OTHER, SELFPAY ==
--- OUTSIDE RECORDS SUMMARY | 2025-02-26 10:48 | XMS_ITS | Clinical Summary ---
Author Organization [facility] Address [address] [place] [address] Care Team Providers Care Digital Imaging Technician Name Role Phone Unavailable Primary Care Provider Unavailabl e Source Comments [facility],non-owned Affiliates and Associated Physician Practices is amultiple site organization consisting of ambulatory clinics and hospital sitesin [place], [place], [place] and [place]. This disclosure is being madepursuant to the Care Everywhere program and may not contain all information available regarding this patient. Last updated 18.[facility] Allergies No known active allergies Medications * Be aware that medications may not be up to date on this document. Alwaysverify current medications with the patient. lisinopril (PRINIVIL; ZESTRIL) 10 MG tablet Take [...] at Not on file Legal Sex Male 7:11 PM [facility] Gender Identity Not on file Sexual Orientation [...] VACCINE (1 - 2023-2 5 season) 2024 DEPRESSION SCREENING 10/18/2024 INFLUENZA VACCINE (Season Ended) 2025 Respiratory Syncytial Virus (RSV) Vaccine Pt: or [...] to complete this topic MENINGOCOCCAL (Group B) VACC INE SHARED DECISION-MAKING Aged Out No longer eligibl e based on patient's age to complete this topic MENINGOCOCCAL GROUPS A/C/Y/W VACCINE Aged Out No longer eligible b ased on patient's age to complete this topic Insurance
--- OUTSIDE RECORDS SUMMARY | 2025-02-26 10:48 | XMS_ITS | Clinical Summary ---
Author Organization [facility] Address [address] [place] [address] Phone Care Team Providers Care Power And Recovery Supervisor Name Role Phone Michael Hamlin MD Primary Care Provider [phone] Allergies No known active allergies Medications lisinopril [...] of Treatment Not on file Care Teams Power And Recovery Supervisor Relationship Specialty Start Date End Date Michael Hamlin MD [address] [address] PCP - General Family Medicine 02/08/17
--- OUTSIDE RECORDS SUMMARY | 2025-02-26 10:48 | XMS_ITS | Continuity of Care Document ---
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 It does not include entries that were removed or entered in error. Problem Status Onset Date Problem Type Date of Resolution Comments Source Benign essential hypertension Active Condition [facility] Elevated PSA Active Condition [facility] Generalized anxiety disorder Active Condition . [facility] Gilbert's syndrome Active Condition [facility] Hyperlipidemia Active Condition . [facility] Insomnia Active Condition [facility] Outpatient Physician Consultation Active Condition DoD visit for: services physical [facility]p Active Condition DoD LATERAL EPICONDYLITIS (TENNIS ELBOW) Active Condition DoD LATERAL EPICONDYLITIS (TENNIS ELBOW) LEFT Inactive Condition DoD REFRACTIVE ERROR - HYPERMETROPIA Active Condition DoD ADJUSTMENT INSOMNIA Active Condition DoD joint pain, localized in the shoulder Active Condition DoD Other Physical Therapy Active Condition DoD joint pain, localized in the left shoulder Active Condition DoD insomnia Active Condition DoD LIVER NEOPLASM, BENIGN - HEMANGIOMA Inactive Condition DoD RETINOPATHY HYPERTENSIVE Active Condition DoD 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 DoD HEMANGIOMA Inactive Condition DoD Abdominal MRI Liver Mass Lesion Active Condition DoD blood in urine Active Condition DoD RENAL INSUFFICIENCY Inactive Condition DoD CIRCADIAN RHYTHM SLEEP DISORDER JET LAG TYPE Inactive Condition DoD VISUAL FIELD DEFECT Active Condition DoD Administrative Evaluation Services Active Condition DoD visit for: screening exam hypertension Inactive Condition DoD HIP SPRAIN HAMSTRING INSERTION RIGHT Active Condition DoD HYPERTENSION (SYSTEMIC) Active Condition DoD GLAUCOMA Active Condition DoD Blood Pressure Isolated Elevated Active Condition DoD visit for: camp physical Inactive Condition DoD VISUAL FIELD SECTOR DEFECT LEFT EYE Active Condition DoD Need For Vaccination Typhoid Inactive Condition DoD visit for: administrative purpose Inactive Condition DoD ankle joint pain Inactive Condition DoD ANKLE SPRAIN RIGHT Inactive Condition DoD visit for: issue medical certificate Inactive Condition Inital 1042 DoD Patient Education Inactive Condition DoD Spectacles Services Fitting Bifocals (Not For Aphakia) Inactive Condition DoD PRESBYOPIA Active Condition DoD ASTIGMATISM Active Condition DoD INSOMNIA DUE TO STRESS Inactive Condition will provide Xa nax .5 mg #30 1-2 tabs po up to BID as dir for anxious sxs. Rx is non formulary and a hand written rx was completed. DoD REACTION TO CHRONIC STRESS Inactive Condition - Counseled p t on use of meds- DNIF status understood by pt. (verbal)- report to me upon return from trip- avoidance of etoh with meds- I have hand-written Rx for Valium 5 mg #15 to be filled at local pharmacy as [facility] is closed today. take 1-2 po up to BID as dir for anxious sxs/feelings. DoD work-related event Inactive Condition DoD family disruption Inactive Condition DoD SINUSITIS ACUTE INFLAMMATION Inactive Condition DoD Physical Examination Inactive Condition - Scheduled PHA/Flyer exam- Labs reviewed and discussed. - Counseled on the need to add extra testicular support for weak inguinal area. - Discussed the anatomy and etiology for hernia explaination- Counseled and briefed on nutrition and weight loss activities- Total time of patient encounter with rehabilitation counselor is 35 minutes. DoD visit for: occupational health / fitness exam Inactive Condition 46 Y/O MALE FOR INITIAL CLEARANCENO WAIVERS, NO CONCERNS, NO QUESTIONS.1042 SIGNED.PATIENT GIVEN GROUND TRIAL OF CIPRO.DNIF. DoD visit for: services flight physical Active Condition DoD ACUTE BRONCHITIS Inactive Condition Wri tten RX's due to system failure. Logged in by pharmacy. DoD visit for: services physical Active Condition PHA 1042 completedDNIF for myopiaDNIF 1042 completedoptometry appt scheduled for todaywill need to have new eyeglass rx and corrected to 20/20 delmis prior to being returned [facility] Diagnosis: ICD-10-CM F41.1 Generalized anxiety disorder Active Diagnosis [facility] Diagnosis: ICD-10-CM E66.811 Obesity, class 1 Active Diagnosis [facility] Diagnosis: ICD-10-CM F41.9 Anxiety disorder, unspecified Active Diagnosis [facility] Diagnosis: ICD-10-CM E66.9 Obesity, unspecified Active Diagnosis [facility] Diagnosis: ICD-10-CM I10 Essential (primary) hypertension Active Diagnosis [facility] Medications Combined list of outpatient medications from [...] PRN RESPIR ATORY (INHAL ATION) ACTIVE ALIZE TRUIJLLO 2023 [facility] ASPIRIN 81MG TAB,EC TAKE ONE TABLET BY MOUTH ONCE A DAY ORAL ACTIVE ALIZE TRUJILLO 2023 [facility] BUPROPION (WELLBUTRIN XL) 24HR TAB,SA (EXTENDED RELEASE) TAKE 150MG BY MOUTH ONCE A DAY ORAL ACTIVE ALIZE TRUJILLO 2023 [facility] CHOLECALCIF VIVIAN 50MCG (2,000UNIT) TAB TAKE ONE TABLET BY MOUTH ONCE A DAY ORAL ACTIVE ALIZE TRUJILLO 2023 [facility] CYANOCOBALA MIN 1000MCG TAB TAKE ONE TABLET BY MOUTH ONCE A DAY ORAL ACTIVE ALIZE TRUJILLO 2023 [facility] DILTIAZEM (EQV-TIAZAC AB4) 360MG 24HR CAP TAKE 1 CAPSULE BY MOUTH EVERY MORNING BEFORE A MEAL ORAL ACTIVE ALIZE TRUJILLO 2023 [facility] DILTIAZEM 24HR ER (CD) (diltiazem HCl), 300 MG, CAP ER 24H, ORAL, INGENUS PHARMAC, 90 ea. BOTTLE Cancele d [id number] : 2023 0 Pharmac y Data Transac tion Service Facilit y DILTIAZEM 24HR ER (CD) (diltiazem HCl), 300 MG, CAP ER 24H, ORAL, INGENUS PHARMAC, 90 ea. BOTTLE Active [id number] 2023 90 Pharmac y Data Transac tion Service Facilit y TRAZODONE HCL 100MG TAB TAKE ONE-HALF TABLET BY MOUTH AT BEDTIME ORAL ACTIVE RONNIE,ALIZE FLORENTIN T [facility] VALSARTAN 320MG TAB TAKE ONE TABLET BY MOUTH ONCE A DAY ORAL ACTIVE ALIZE TRUJILLO T 2023 [facility] Allergies, Adverse Reactions, Alerts Combined list of allergies from Department of Defense and Veterans Affairs facilities. It does not include entries that were removed or entered in error. Substance Category Reaction Severity Reaction type Status Date Reported Comments Source No Known Allergies Drug allergy (disorder) active 8 [employer] SHELLFISH Propensity to adverse reactions to food (finding) Diarrhea MILD active 4 [facility] Immunizations Combined list of available immunizations from the Department of [facility] and Veterans Affairs facilities. 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 Source TDAP 2023 CHRISTOPHER LYNN D LEFT DELTO ID [id number] 115 complet ed [facility] COVID-19 (PFIZER), MRNA, LNP-S, PF, TOM-SUCROSE, 30 MCG/0.3 ML (AGES 12+ YEARS) 2022 309 complet ed HISTORICA L INFORMATI ON - FROM OTHER PROVIDER, [facility] INFLUENZA, UNSPECIFIED FORMULATION 2022 88 complet ed HISTORICA L INFORMATI ON - FROM PATIENT'S WRITTEN RECORD, [facility] N ZOSTER RECOMBINANT 2 2022 187 complet ed HISTORICA L INFORMATI ON - FROM OTHER PROVIDER, [facility] COVID-19 (PFIZER), MRNA, LNP-S, BIVALENT, PF, 30 MCG/0.3 ML DOSE 1 2021 300 complet ed HISTORICA L INFORMATI ON - FROM OTHER PROVIDER, [facility] ZOSTER RECOMBINANT 1 2021 187 complet ed HISTORICA L INFORMATI ON - FROM OTHER PROVIDER, [facility] N COVID-19 (MODERNA), MRNA, LNP-S, PF, 100 MCG/0.5ML DOSE OR 50 MCG/0.25ML DOSE 1 2021 207 complet ed HISTORICA L INFORMATI ON - [facility] ([facility]), MRNA, LNP-S, PF, 30 MCG/0.3 ML DOSE 3 2021 208 complet ed HISTORICA L INFORMATI ON - FROM OTHER PROVIDER, [facility] COVID-19 ([facility]), MRNA, LNP-S, PF, 30 MCG/0.3 ML DOSE 2 2020 208 complet ed HISTORICA L INFORMATI ON - FROM OTHER PROVIDER, [facility] Influenza, injectable, MDCK, preservative free, quadrivalent 2020 ALUL, () Not Given Influenza , injectabl e, MDCK, preservat daniel free, quadrival ent [facility] COVID-19, mRNA, LNP-S, PF, 30 mcg/0.3 mL dose 2020 ALUL, [employer] [place] (PFR) Not Given COVID-19, mRNA, LNP-S, PF, 30 mcg/0.3 mL dose DoD COVID-19 (PFIZER), MRNA, LNP-S, PF, 30 MCG/0.3 ML DOSE 1 2020 208 complet ed HISTORICA L INFORMATI ON - FROM OTHER PROVIDER, [facility] N typhoid Vi capsular polysaccharid e vac 2011 [id number] sanofi pasteur complet ed typhoid Vi capsular polysacch aride vac 02/26/12 Given Ambulat ory Pharmac y typhoid Vi capsular polysaccharid e vaccine 1 2011 [id number] 101 Sanofi Pasteur ([facility]) complet ed typhoid Vi capsular polysacch aride vaccine [facility] influenza virus vaccine, live 2010 [id number] 111 [employer] comple t ed influenza virus vaccine, live 08/06/11 Given Ambulat ory Pharmac y influenza virus vaccine, live, attenuated, for intranasal use 18 2010 [id number] 111 AG&P, Inc. (MED) complet ed influenza virus vaccine, live, attenuate d, for intranasa l use [facility] influenza virus vaccine,split 2009 [id number] 15 sanofi pasteur complet ed influenza virus vaccine,s plit 09/15/10 Given Ambulat ory Pharmac y influenza virus vaccine, split virus (incl. purified surface antigen)-reti red CODE 1 2009 [id number] 15 Sanofi Pasteur (PMC) complet ed influenza virus vaccine, split virus (incl. purified surface antigen)- retired CODE DoD Novel influenza-H1N 1-09, injectable 2009 127 complet ed Novel influenza -Y5D8-13, injectabl e 10/29/09 Given Ambulat ory Pharmac y Novel influenza-H1N 1-09, injectable 1 2009 127 Transcribed (TRS) complet ed Novel influenza -C3P8-33, injectabl e DoD tetanus, diphtheria, acellular pertu is 2009 [id number] [address] [place] complet ed tetanus, diphtheri a, acellular pertussis 10/21/09 Given Ambulat ory Pharmac y tetanus toxoid, reduced diphtheria toxoid, and acellular pertu is vaccine, adsorbed 1 2009 [id number] 115 [employer] (SKB) complet ed tetanus toxoid, reduced diphtheri a toxoid, and acellular pertussis vaccine, adsorbed DoD influenza virus vaccine, live 2008 [id number] 111 [employer]ast[employer] complet ed influenza virus vaccine, live 08/09/09 Given Ambulat ory Pharmac y influenza virus vaccine, live, attenuated, for intranasal use 1 2008 [id number] 111 [employer] (MED) complet ed influenza virus vaccine, live, attenuate d, for intranasa l use DoD typhoid Vi capsular polysaccharid e vac 2008 [id number] 101 sanofi pasteur complet ed typhoid Vi capsular polysacch aride vac 01/10/09 Given Ambulat ory Pharmac y typhoid Vi capsular polysaccharid e vaccine 1 2008 [id number] 101 Sanofi Pasteur (PMC) complet ed typhoid Vi capsular polysacch aride vaccine DoD influenza virus vaccine, live 2007 [id number] 111 Medimmune Inc comple t ed influenza virus vaccine, live 07/19/08 Given Ambulat ory Pharmac y influenza virus vaccine, live, attenuated, for intranasal use 1 2007 [id number] 111 AG&P, Inc. (MED) complet ed influenza virus vaccine, live, attenuate d, for intranasa l use DoD meningococcal A,C,Y,W-135 (MCV4P) 2007 [id number] 114 sanofi pasteur complet ed meningoco ccal A,C,Y,W-1 35 (MCV4P) 04/23/08 Given Ambulat ory Pharmac y meningococcal polysaccharid e (groups A, C, Y and W-135) diphtheria toxoid conjugate vaccine (MCV4P) 1 2007 [id number] 114 Sanofi Pasteur (PMC) complet ed meningoco [...] ory Pharmac y influenza virus vaccine,split 2006 [id number] 15 GlaxoSmithK[employer] ne complet ed influenza virus vaccine,s plit 10/06/07 Given Ambulat ory Pharmac y influenza virus vaccine, split virus (incl. purified surface antigen)-reti red CODE 1 2006 [id number] 15 [employer] (SKB) complet ed influenza virus vaccine, split virus (incl. purified surface antigen)- retired CODE DoD hepatitis B vaccine, adult dosage 2 2006 [id number] 43 [employer] (SKB) complet ed hepatitis B vaccine, adult dosage DoD hepatitis B adult vaccine 2006 [id number] 43 GlaxoSmithKli ne complet ed hepatitis B adult vaccine 08/08/07 Given Ambulat ory Pharmac y hepatitis B vaccine, adult dosage 0 2006 [id number] 43 [employer] (SKB) complet ed hepatitis B vaccine, adult dosage DoD anthrax vaccine 2006 [id number] 24 [employer] complet ed anthrax vaccine 07/10/07 Given Ambulat ory Pharmac y anthrax vaccine 6 2006 [id number] 24 [employer] [place] ([facility]) complet ed anthrax vaccine DoD vaccinia (smallpox) vaccine 2006 [id number] 75 [employer] [facility] complet ed vaccinia (smallpox ) vaccine 06/07/07 Given Ambulat ory Pharmac y vaccinia (smallpox) vaccine 1 2006 [id number] 75 [facility] ([facility]) complet ed vaccinia (smallpox ) vaccine DoD typhoid Vi capsular polysaccharid e vac 2006 [id number] 101 sanofi pasteur complet ed typhoid Vi capsular polysacch aride vac 01/06/07 Given Ambulat ory Pharmac y anthrax vaccine 2006 [id number] 24 [employer] complet ed anthrax vaccine 01/06/07 Given Ambulat ory Pharmac y anthrax vaccine 6 2006 [id number] 24 [employer] [place] ([facility]) complet ed anthrax vaccine DoD typhoid Vi capsular polysaccharid e vaccine 1 2006 [id number] 101 Sanofi Pasteur ([facility]) complet ed typhoid Vi capsular polysacch aride vaccine DoD influenza virus vaccine, live 2005 [id number] 111 [employer] comple t ed influenza virus vaccine, live 07/06/06 Given Ambulat ory Pharmac y influenza virus vaccine, live, attenuated, for intranasal use 1 2005 [id number] 111 AG&P, Inc. (MED) complet ed influenza virus vaccine, live, attenuate d, for intranasa l use [facility] influenza virus vaccine, whole virus 2004 [id number] 16 sanofi pasteur complet ed influenza virus vaccine, whole virus 08/07/05 Given Ambulat ory Pharmac y influenza virus vaccine,split 2004 [id number] 15 sanofi pasteur complet ed influenza virus vaccine,s plit 08/07/05 Given Ambulat ory Pharmac y influenza virus vaccine, split virus (incl. purified surface antigen)-reti red CODE 1 2004 [id number] 15 Sanofi Pasteur ([facility]) complet ed influenza virus vaccine, split virus (incl. purified surface antigen)- retired CODE DoD influenza virus vaccine, whole virus 1 2004 [id number] 16 Sanofi Pasteur (PMC) complet ed influenza virus vaccine, whole virus DoD influenza virus vaccine, live 2003 [id number] 111 [employer] Inc comple t ed influenza virus vaccine, live 10/15/04 Given Ambulat ory Pharmac y influenza virus vaccine, live, attenuated, for intranasal use 0 2003 [id number] 111 AG&P, Inc. (MED) complet ed influenza virus vaccine, live, attenuate d, for intranasa l use DoD influenza virus vaccine, whole virus 2002 [id number] 16 [employer] complet ed influenza virus vaccine, whole virus 07/31/03 Given Ambulat ory Pharmac y influenza virus vaccine, whole virus 0 2002 [id number] 16 [employer] (EVN) complet ed influenza virus vaccine, whole virus DoD influenza virus vaccine, whole virus 2001 [id number] 16 [facility] complet ed influenza virus vaccine, whole virus 01/11/02 Given Ambulat ory Pharmac y influenza virus vaccine, whole virus 0 2001 [id number] 16 Sanofi Pasteur ([facility]) complet ed influenza virus vaccine, whole virus DoD influenza virus vaccine, whole virus 2000 [id number] 16 [facility] complet ed influenza virus vaccine, whole virus 11/03/00 Given Ambulat ory Pharmac y influenza virus vaccine, whole virus 0 2000 [id number] 16 [facility] ([facility]) complet ed influenza virus vaccine, whole virus DoD influenza virus vaccine, whole virus 1999 16 complet ed influenza virus vaccine, whole virus 07/18/00 Given Ambulat ory Pharmac y influenza virus vaccine, whole virus 0 1999 16 () complet ed influenza virus vaccine, whole virus DoD tuberculin purified protein derivative 1999 [id number] [facility] complet ed tuberculi n purified protein derivativ e 07/02/00 Given Ambulat ory Pharmac y yellow fever vaccine 1999 37 complet ed yellow fever vaccine 07/02/00 Given Ambulat ory Pharmac y yellow fever vaccine 0 1999 37 () complet ed yellow fever vaccine DoD influenza virus vaccine, whole virus 1999 [id number] [address] [facility] complet ed influenza virus vaccine, whole virus 02/25/00 Given Ambulat ory Pharmac y influenza virus vaccine, whole virus 0 1999 [id number] 16 [place] (CON) complet ed influenza virus [...] vaccine, adult dosage DoD anthrax vaccine 1998 [id number] [employer] complet ed anthrax vaccine 08/08/99 Given Ambulat ory Pharmac y anthrax vaccine 5 1998 [id number] 24 [employer] [place] (MIP) complet ed anthrax vaccine DoD influenza virus vaccine,split 1998 [id number] 15 [facility] complet ed influenza virus vaccine,s plit 08/05/99 Given Ambulat ory Pharmac y influenza virus vaccine, split virus (incl. purified surface antigen)-reti red CODE 0 1998 [id number] 15 [place] (CON) complet ed influenza virus vaccine, split virus (incl. purified surface antigen)- retired CODE DoD typhoid vaccine, inactivated 1998 101 complet ed typhoid vaccine, inactivat ed 07/22/99 Given Ambulat ory Pharmac y meningococcal polysaccharid e (MPSV4) [id number] 32 [facility] complet ed meningoco ccal polysacch aride (MPSV4) 07/22/99 Given Ambulat ory Pharmac y tetanus-dipht h toxoids (Td) adult/adol 1998 [id number] [facility] complet ed tetanus-d iphth toxoids (Td) adult/ado l 07/22/99 Given Ambulat ory Pharmac y tetanus and diphtheria toxoids, adsorbed, preservative free, for adult use (2 Lf of tetanus toxoid and 2 Lf of diphtheria toxoid) 0 1998 [id number] 09 [place] (CON) complet ed tetanus and diphtheri a toxoids, adsorbed, preservat daniel free, for adult use (2 Lf of tetanus toxoid and 2 Lf of diphtheri a toxoid) DoD meningococcal polysaccharid e vaccine (MPSV4) 0 [id number] 32 [place] (CON) complet ed meningoco ccal polysacch aride vaccine (MPSV4) DoD typhoid vaccine, parenteral, other than acetone-kille d, dried 0 1998 41 () complet ed typhoid vaccine, parentera l, other than acetone-k illed, dried DoD anthrax vaccine 1998 UNKNOWN 24 [employer] complet ed anthrax vaccine 02/14/99 Given Ambulat ory Pharmac y anthrax vaccine 4 1998 UNKNOWN 24 [employer] [place] ([facility]) complet ed anthrax vaccine DoD hepatitis [...] 3 1998 UNKNOWN 24 [employer] [place] (MIP) complet ed anthrax vaccine DoD anthrax vaccine 1998 UNKNOWN 24 [employer] complet ed anthrax vaccine 01/14/99 Given Ambulat ory Pharmac y anthrax vaccine 2 1998 UNKNOWN 24 [employer] [place] ([facility]) complet ed anthrax vaccine DoD anthrax vaccine 1998 UNKNOWN 24 [employer] complet ed anthrax vaccine 12/26/98 Given Ambulat ory Pharmac y anthrax vaccine 1 1998 UNKNOWN 24 [employer] [place] ([facility]) complet ed anthrax vaccine DoD influenza virus vaccine, whole virus [id number] 16 complet ed influenza virus vaccine, whole [...] DoD influenza virus vaccine, whole virus 0 [id number] [id number] 16 (MV) complet ed influenza virus vaccine, whole virus DoD hepatitis A adult vaccine 1996 52 complet ed hepatitis A adult vaccine 09/10/97 Given Ambulat ory Pharmac y influenza virus vaccine, whole virus [id number] 16 complet ed influenza virus vaccine, whole virus 09/10/97 Given Ambulat ory Pharmac y influenza virus vaccine, whole virus 0 [id number] 16 (MV) complet ed influenza virus vaccine, whole virus DoD hepatitis A vaccine, adult dosage 1 1996 52 () complet ed hepatitis A vaccine, adult dosage DoD typhoid, parenteral, AKD 1994 - Unknown complet ed typhoid, parentera l, AKD 12/29/94 Given Ambulat ory Pharmac y typhoid vaccine, parenteral, acetone-kille d, dried ([place] ) 1 1994 - 53 Unknown (UNK) comple t ed typhoid vaccine, parentera l, acetone-k illed, dried ([place] ) DoD meningococcal polysaccharid e (MPSV4) [id number] [id number] 32 Unknown complet ed meningoco ccal polysacch aride (MPSV4) 04/10/91 Given Ambulat ory Pharmac y meningococcal polysaccharid e vaccine (MPSV4) 0 [id number] [id number] 32 Unknown (UNK) comple t ed meningoco ccal polysacch aride vaccine (MPSV4) DoD meningococcal polysaccharid e (MPSV4) 1990 32 complet ed meningoco ccal polysacch aride (MPSV4) 11/10/90 Given Ambulat ory Pharmac y meningococcal polysaccharid e vaccine (MPSV4) 0 1990 32 () complet ed meningoco ccal polysacch aride vaccine (MPSV4) DoD yellow fever vaccine [id number] 37 [employer] complet ed yellow fever vaccine 04/30/89 Given Ambulat ory Pharmac y yellow fever vaccine 0 19883642 2288945 37 [place] ([place]active) ([place]) complet ed yellow [...] Jun 06, 2024 02:27 PM Reporting Lab: [address] [address] Performing Lab: [address] [address] [facility] RENAL PANEL CREATININE [MASS/VOLU ME] IN SERUM OR PLASMA 1.28 mg/dL 0.7 - 1.3 06/06 Specimen Type: PLASMA Comment: No hemolysis noted. Ordering Provider: MONAE TRUJILLO Report Released Date/Time: Jun 06, 2024 02:27 PM Reporting Lab: [address] [address] Performing Lab: [address] [address] [facility] RENAL PANEL UREA NITROGEN [MASS/VOLU ME] IN SERUM OR PLASMA 14.2 mg/dL 9.0 - 25.0 06/06 Specimen Type: PLASMA Comment: No hemolysis noted. Ordering Provider: MONAE TRUJILLO Report Released Date/Time: Jun 06, 2024 02:27 PM Reporting Lab: [address] [address] Performing Lab: [address] [address] [facility] RENAL PANEL GLUCOSE [MASS/VOLU ME] IN SERUM OR PLASMA 94 mg/dL 72 - 99 06/06 Specimen Type: PLASMA Comment: No hemolysis noted. Ordering Provider: MONAE TRUJILLO Report Released Date/Time: Jun 06, 2024 02:27 PM Reporting Lab: [address] [address] Performing Lab: [address] [address] [facility] RENAL PANEL SODIUM [MOLES/VOL UME] IN SERUM OR PLASMA 140 meq/L 136 - 145 06/06 Specimen Type: PLASMA Comment: No hemolysis noted. Ordering Provider: MONAE TRUJILLO Report Released Date/Time: Jun 06, 2024 02:27 PM Reporting Lab: [address] [address] Performing Lab: [facility] [address] [place] [id number] [facility] RENAL PANEL POTASSIUM [MOLES/VOL UME] IN SERUM OR PLASMA 3.8 meq/L 3.5 - 5 06/06 Specimen Type: PLASMA Comment: No hemolysis noted. Ordering Provider: MONAE TRUJILLO Report Released Date/Time: Jun 06, 2024 02:27 PM Reporting Lab: [address] [address] Performing Lab: [address] [address] [facility] RENAL PANEL CHLORIDE [MOLES/VOL UME] IN SERUM OR PLASMA 107 meq/L 98 - 107 06/06 Specimen Type: PLASMA Comment: No hemolysis noted. Ordering Provider: MONAE TRUJILLO Report Released Date/Time: Jun 06, 2024 02:27 PM Reporting Lab: [address] [address] Performing Lab: [address] [address] [facility] RENAL PANEL CARBON DIOXIDE, TOTAL [MOLES/VOL UME] IN SERUM OR PLASMA 23 meq/L 22 - 31 06/06 Specimen Type: PLASMA Comment: No hemolysis noted. Ordering Provider: MONAE TRUJILLO Report Released Date/Time: Jun 06, 2024 02:27 PM Reporting Lab: [address] [address] Performing Lab: [address] [address] [facility] RENAL PANEL CALCIUM [MASS/VOLU ME] IN SERUM OR PLASMA 9.5 mg/dL 8.4 - 10.4 06/06 Specimen Type: PLASMA Comment: No hemolysis noted. Ordering Provider: MONAE TRUJILLO Report Released Date/Time: Jun 06, 2024 02:27 PM Reporting Lab: [facility] [address] [place] [phone] Performing Lab: [facility] [address] [place] [phone] [facility] RENAL PANEL PHOSPHATE [MASS/VOLU ME] IN SERUM OR PLASMA 3.1 mg/dL 2.3 - 4.7 06/06 Specimen Type: PLASMA Comment: No hemolysis noted. Ordering Provider: MONAE TRUJILLO Report Released Date/Time: Jun 06, 2024 02:27 PM Reporting Lab: [address] [address] Performing Lab: [address] [address] [facility] RENAL PANEL ALBUMIN [MASS/VOLU ME] IN SERUM OR PLASMA 4.6 g/dL 3.4 - 5 06/06 Specimen Type: PLASMA Comment: No hemolysis noted. Ordering Provider: MONAE TRUJILLO Report Released Date/Time: Jun 06, 2024 02:27 PM Reporting Lab: [address] [address] Performing Lab: [address] [address] [facility] RENAL PANEL GLOMERULAR FILTRATION RATE/1.73 SQ M.PREDICTE D [VOLUME RATE/AREA] IN SERUM, PLASMA OR BLOOD BY CREATININE -BASED FORMULA (CKD-EPI 2020) 63.3 60 06/06 Specimen Type: PLASMA Comment: No hemolysis noted. Ordering Provider: MONAE TRUJILLO Report Released Date/Time: Jun 06, 2024 02:27 PM Reporting Lab: [address] [address] Performing Lab: [facility] [address] [place] [phone] [facility] CBC LEUKOCYTES [#/VOLUME] IN BLOOD BY AUTOMATED COUNT 6.8 10*3/uL 3.6 - 11.2 06/06 Specimen Type: BLOOD No comment entered. Ordering Provider: MONAE TRUJILLO Report Released Date/Time: Jun 06, 2024 02:27 PM Reporting Lab: [address] [address] Performing Lab: [address] [address] [facility] CBC ERYTHROCYT ES [#/VOLUME] IN BLOOD BY AUTOMATED COUNT 5.39 10*6/uL 4.10 - 5.70 06/06 Specimen Type: BLOOD No comment entered. Ordering Provider: MONAE TRUJILLO Report Released Date/Time: Jun 06, 2024 02:27 PM Reporting Lab: [address] [address] Performing Lab: [address] [address] [facility] CBC HEMOGLOBIN [MASS/VOLU ME] IN BLOOD 17.3 g/dL 13.1 - 16.8 06/06 H Specimen Type: BLOOD No comment entered. Ordering Provider: MONAE TRUJILLO Report Released Date/Time: Jun 06, 2024 02:27 PM Reporting Lab: [address] [address] Performing Lab: [address] [address] [facility] CBC HEMATOCRIT [VOLUME FRACTION] OF BLOOD 49.8 38.2 - 48.4 06/06 H Specimen Type: BLOOD No comment entered. Ordering Provider: MONAE TRUJILLO Report Released Date/Time: Jun 06, 2024 02:27 PM Reporting Lab: [address] [address] Performing Lab: [address] [place] [address] [facility] CBC MCV [ENTITIC VOLUME] BY AUTOMATED COUNT 92.4 fL 80.0 - 100.0 06/06 Specimen Type: BLOOD No comment entered. Ordering Provider: MONAE TRUJILLO Report Released Date/Time: Jun 06, 2024 02:27 PM Reporting Lab: [address] [address] Performing Lab: [address] [address] [facility] CBC MCH [ENTITIC MASS] BY AUTOMATED COUNT 32.1 pg 27.0 - 34.0 06/06 Specimen Type: BLOOD No comment entered. Ordering Provider: MONAE TRUJILLO Report Released Date/Time: Jun 06, 2024 02:27 PM Reporting Lab: [address] [address] Performing Lab: [address] [address] [facility] CBC MCHC [MASS/VOLU ME] BY AUTOMATED COUNT 34.7 g/dL 33.0 - 36.0 06/06 Specimen Type: BLOOD No comment entered. Ordering Provider: MONAE TRUJILLO Report Released Date/Time: Jun 06, 2024 02:27 PM Reporting Lab: [address] [address] Performing Lab: [address] [address] [facility] CBC PLATELETS [#/VOLUME] IN BLOOD BY AUTOMATED COUNT 282 10*3/uL 150 - 400 06/06 Specimen Type: BLOOD No comment entered. Ordering Provider: MONAE TRUJILLO Report Released Date/Time: Jun 06, 2024 02:27 PM Reporting Lab: [address] [address] Performing Lab: [address] [address] [facility] CBC PLATELET MEAN VOLUME [ENTITIC VOLUME] IN BLOOD BY AUTOMATED COUNT 10.4 fL 7.5 - 11.2 06/06 Specimen Type: BLOOD No comment entered. Ordering Provider: MONAE TRUJILLO Report Released Date/Time: Jun 06, 2024 02:27 PM Reporting Lab: [address] [address] Performing Lab: [address] [address] [facility] CBC ERYTHROCYT E DISTRIBUTI ON WIDTH [RATIO] BY AUTOMATED COUNT 12.5 11.8 - 15.1 06/06 Specimen Type: BLOOD No comment entered. Ordering Provider: MONAE TRUJILLO Report Released Date/Time: Jun 06, 2024 02:27 PM Reporting Lab: [address] [address] Performing Lab: [address] [address] [facility] CBC LYMPHOCYTE S/100 LEUKOCYTES IN BLOOD BY AUTOMATED COUNT 23 06/06 Specimen Type: BLOOD No comment entered. Ordering Provider: MONAE TRUJILLO Report Released Date/Time: Jun 06, 2024 02:27 PM Reporting Lab: [address] [address] Performing Lab: [address] [address] [facility] CBC MONOCYTES/ 100 LEUKOCYTES IN BLOOD BY AUTOMATED COUNT 10 06/06 Specimen Type: BLOOD No comment entered. Ordering Provider: MONAE TRUJILLO Report Released Date/Time: Jun 06, 2024 02:27 PM Reporting Lab: [address] [address] Performing Lab: [address] [address] [facility] CBC NEUTROPHIL S/100 LEUKOCYTES IN BLOOD BY AUTOMATED COUNT 64 06/06 Specimen Type: BLOOD No comment entered. Ordering Provider: MONAE TRUJILLO Report Released Date/Time: Jun 06, 2024 02:27 PM Reporting Lab: [address] [address] Performing Lab: [address] [address] [facility] CBC EOSINOPHIL S/100 LEUKOCYTES IN BLOOD BY AUTOMATED COUNT 2 06/06 Specimen Type: BLOOD No comment entered. Ordering Provider: MONAE TRUJILLO Report Released Date/Time: Jun 06, 2024 02:27 PM Reporting Lab: [place] [phone] Performing Lab: [address] [phone] CBC BASOPHILS/ 100 LEUKOCYTES IN BLOOD BY AUTOMATED COUNT 1 06/06 Specimen Type: BLOOD No comment entered. Ordering Provider: MONAE TRUJILLO Report Released Date/Time: Jun 06, 2024 02:27 PM Reporting Lab: [address] [address] Performing Lab: [address] [address] [facility] CBC LYMPHOCYTE S [#/VOLUME] IN BLOOD BY AUTOMATED COUNT 1.56 10*3/uL 0.77 - 4.50 06/06 Specimen Type: BLOOD No comment entered. Ordering Provider: MONAE TRUJILLO Report Released Date/Time: Jun 06, 2024 02:27 PM Reporting Lab: [address] [address] Performing Lab: [address] [address] [facility] CBC MONOCYTES [#/VOLUME] IN BLOOD BY AUTOMATED COUNT 0.65 10*3/uL 0.19 - 0.80 06/06 Specimen Type: BLOOD No comment entered. Ordering Provider: MONAE TRUJILLO Report Released Date/Time: Jun 06, 2024 02:27 PM Reporting Lab: [place] [phone] Performing Lab: [address] [phone] [place] [address] CBC NEUTROPHIL S [#/VOLUME] IN BLOOD BY AUTOMATED COUNT 4.37 10*3/uL 2.10 - 8.00 06/06 Specimen Type: BLOOD No comment entered. Ordering Provider: MONAE TRUJILLO Report Released Date/Time: Jun 06, 2024 02:27 PM Reporting Lab: [place] [address] Performing Lab: [place] [phone] CBC EOSINOPHIL S [#/VOLUME] IN BLOOD BY AUTOMATED COUNT 0.14 10*3/uL 0.00 - 0.60 06/06 Specimen Type: BLOOD No comment entered. Ordering Provider: MONAE TRUJILLO Report Released Date/Time: Jun 06, 2024 02:27 PM Reporting Lab: [place] [phone] Performing Lab: [address] [phone] [place] [address] CBC BASOPHILS [#/VOLUME] IN BLOOD BY AUTOMATED COUNT 0.08 10*3/uL 0.00 - 0.20 06/06 Specimen Type: BLOOD No comment entered. Ordering Provider: MONAE TRUJILLO Report Released Date/Time: Jun 06, 2024 02:27 PM Reporting Lab: [address] [address] Performing Lab: [address] [address] [facility] PROST. SPECIFIC AG.(PB-S TL) [...] Jun 06, 2024 02:27 PM Reporting Lab: [place] [address] Performing Lab: [address] HIV COMBO FOURTH GENERATI ON (STL) HIV 1+2 AB+HIV1 P24 AG [PRESENCE] IN SERUM OR PLASMA BY IMMUNOASSA Y Nonreact daniel 06/06 Specimen Type: SERUM No comment entered. Ordering Provider: MONAE TRUJILLO Report Released Date/Time: Jun 06, 2024 02:27 PM Reporting Lab: [address] [address] Performing Lab: [address] HEP C Ab HCV Ab (L) HEPATITIS [...] Jun 06, 2024 02:27 PM Reporting Lab: [address] Performing Lab: [address] HGA1C HEMOGLOBIN A1C/HEMOGL OBIN.TOTAL IN BLOOD 5.1 4.0 - 6.0 06/06 Specimen Type: BLOOD No comment entered. Ordering Provider: MONAE TRUJILLO Report Released Date/Time: Jun 06, 2024 02:27 PM Reporting Lab: [address] [address] Performing Lab: [address] [address] [facility] LIPID PANEL (STL) CHOLESTERO L [MASS/VOLU ME] IN SERUM OR PLASMA 186 mg/dL 0 - 200 06/06 Specimen Type: PLASMA Comment: No hemolysis noted. Ordering Provider: MONAE TRUJILLO Report Released Date/Time: Jun 06, 2024 02:27 PM Reporting Lab: [address] [address] Performing Lab: [address] [address] [facility] LIPID PANEL (STL) TRIGLYCERI DE [MASS/VOLU ME] IN SERUM OR PLASMA 183 mg/dL 0 - 150 06/06 H Specimen Type: PLASMA Comment: No hemolysis noted. Ordering Provider: MONAE TRUJILLO Report Released Date/Time: Jun 06, 2024 02:27 PM Reporting Lab: [address] [address] Performing Lab: [address] [address] [facility] LIPID PANEL (STL) CHOLESTERO L IN LDL [MASS/VOLU ME] IN SERUM OR PLASMA BY CALCULATIO N 106 mg/dL 06/06 Specimen Type: PLASMA Comment: No hemolysis noted. Ordering Provider: MONAE TRUJILLO Report Released Date/Time: Jun 06, 2024 02:27 PM Reporting Lab: [address] [address] Performing Lab: [address] [address] [facility] LIPID PANEL (STL) CHOLESTERO L IN HDL [MASS/VOLU ME] IN SERUM OR PLASMA 43 mg/dL 40 06/06 Specimen Type: PLASMA Comment: No hemolysis noted. Ordering Provider: MONAE TRUJILLO Report Released Date/Time: Jun 06, 2024 02:27 PM Reporting Lab: [facility] [address] [facility] [address] Performing Lab: [facility] [address] [facility] [address] [facility] Vital Signs Combined list of inpatient and outpatient Vital Signs from Department of Defense and Veterans Affairs, ranging from 12 months to all on record, depending upon the facility. Vital Sign Value Date Comments Source SYSTOLIC BLOOD PRESSURE 162 01/23/2025 14:49:23 [facility] DIASTOLIC BLOOD PRESSURE 91 01/23/2025 14:49:23 [facility] PULSE OXIMETRY 95 01/23/2025 14:49:23 [facility] WEIGHT 226 01/23/2025 14:49:23 [facility] BMI 33 kg/m2 01/23/2025 14:49:23 [facility] PAIN 0 01/23/2025 14:49:23 [facility] HEIGHT 69 01/23/2025 14:49:23 [facility] DIVISION TEMPERATURE 98.6 01/23/2025 14:49:23 [facility] PULSE 74 01/23/2025 14:49:23 [facility] DIV[facility] RESPIRATION 20 01/23/2025 14:49:23 [facility] SYSTOLIC BLOOD PRESSURE 170 06/06/2024 13:23:03 [facility] DIASTOLIC BLOOD PRESSURE 98 06/06/2024 13:23:03 [facility] PULSE OXIMETRY 96 06/06/2024 13:23:03 [facility] WEIGHT 224.3 06/06/2024 13:23:03 [facility] BMI 33 kg/m2 06/06/2024 13:23:03 [facility] PAIN 0 06/06/2024 13:23:03 [facility] HEIGHT 69 06/06/2024 13:23:03 [facility] TEMPERATURE 98.6 06/06/2024 13:23:03 [facility] PULSE 61 06/06/2024 13:23:03 [facility] RESPIRATION 18 06/06/2024 13:23:03 [facility] Encounters Combined list of: 1) Encounters from Department of [facility] facilities going backup to the last 18 months, not all VA inpatient encounters are included; 2) Encounters from the Department of [facility] facilities going backup to 280 months. Location Location Details Encounter Type Encounter Number Reason For Visit Attending Provider ADM Date DC Date Status Disposition Source [facility] Medical [facility] Medicine [facility] Practice) OUTPATIENT [id number] Part 2, flight physica l ARMIDA Dodd A 01/05 Released w/o Limitations [facility] Group(F light Medicin e Group Practic e) [facility] Medicine [facility] Practice) OUTPATIENT [id number] Continu ing cold symptom s ABDIRIZAK Watson 01/29 Released w/o Limitations [facility] Group(F light Medicin e Group Practic e) [facility] Medicine [facility] Practice) OUTPATIENT [id number] PART II PHY-mjBAUTISTA Brennan A 09/21 Released w/o Limitations [facility](F light Medicin e Group Practic e) [facility] [employer](F light Medicine 22 MDG) OUTPATIENT [id number] INCOMIN G RAY ARCE 01/22 Released with Work/Duty Limitations [employer] (Flight Medicin e [employer] MD[employer]) [employer](F light Medicine [employer] MD[employer]) OUTPATIENT [id number] PHA WING KEHINDE DUMONT 01/07 Released w/o Limitations [employer] (Flight Medicin e 22 MDG) [employer] [employer](O ptometry Clinic 22 MD[facility]) OUTPATIENT [id number] Color MILLY Mason 01/07 Released w/o Limitations [employer] [employer] (Optome try Clinic 22 MD[facility]) [employer] [employer](F light Medicine [employer] [facility]) OUTPATIENT [id number] VISIT F CHRISTENSE N, KEHINDE E 02/02 Released w/o Limitations [employer] [employer] (Flight Medicin e 22 MDG) [employer] [employer](F light Medicine 22 MD[facility]) TELE CONSULT [id number] discuss situati on for relaxat ion and meds. CHRISTENSE N, KEHINDE E 03/11 [employer] [employer] (Flight Medicin e 22 MDG) [employer] [employer](F light Medicine 22 MDG) TELE CONSULT [id number] discuss ion CHRISTENSE N, KEHINDE E 03/17 [employer] [employer] (Flight Medicin e 22 MDG) [employer] [employer](F light Medicine 22 MDG) OUTPATIENT [id number] PHA WING EYE 0930 [facility] VICKIE CHAKRABORTY 11/09 Released w/o Limitations [employer] [employer] (Flight Medicin e 22 MDG) [employer] [employer](O ptometry Clinic 22 MDG) OUTPATIENT [id number] [facility] [place]- Routine Exam TYSHAWN RON 11/09 Released w/o Limitations [employer] [employer] ([facility] try [facility] 22 MD[facility]) [employer] [employer](O ptometry Clinic 22 MDG) OUTPATIENT [id number] TSYHAWN RON 11/14 Released w/o Limitations [employer] [employer] (Opt[facility] try [facility] 22 MDG) [employer] ([facility]Fam adenike Practice Non-GME FHI1) OUTPATIENT [id number] Medical Right CARTER Harman 01/01 Released w/o Limitations [employer] ([facility]F amily Practic e Non-GME FHI1) [employer] ([facility] Flight Medicine ) OUTPATIENT [id number] sHECTOR Dasilva 03/15 Released w/o Limitations [employer] ([facility]S cott Flight Medicin e Tm) [employer] ([facility] Flight Medicine Tm) OUTPATIENT [id number] ZONIA Ashley 07/06 Released w/o Limitations [employer] ([facility]S cott Flight Medicin e Tm) [employer] ([facility]Phy sical Therapy) OUTPATIENT [id number] ANKLE SPRAIN RIGHT DELLA BANERJEE Meño 07/18 Released w/o Limitations [employer] ([facility]P hysical Therapy ) [employer] ([facility] Flight Medicine ) OUTPATIENT [id number] SDian RTFS HECTOR COLEMAN 07/19 Released w/o Limitations [employer] ([facility]S cott Flight Medicin e Tm) [employer] ([facility]Phy sical Therapy) OUTPATIENT [id number] DELLA BANERJEE Meño 08/01 Released w/o Limitations [employer] ([facility]P hysical Therapy ) [employer] ([facility] Flight Medicine Tm) OUTPATIENT [id number] rec rev and [id number] trans WILI MONIQUE 09/07 Released w/o Limitations [employer] ([facility]S cott Flight Medicin e Tm) [employer] ([facility] Flight Medicine Tm) OUTPATIENT [id number] 49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)([facility] Flight Medicine Tm) OUTPATIENT [id number] S.C. Paperwo rk review and review of optho visit results MARCUSGRABIEL MOLINA Linda 04/11 Released w/o Limitations [facility] Group [facility] [facility])(S cott Flight Medicin e Tm) [address] [place] [address] Group [facility])(Opt ometry) OUTPATIENT [id number] 3 mo f/u, [id number] , OCT DUNG ALBERTO 06/12 Released w/o Limitations [address] [place] [address] Group [facility])(O ptometr y) [facility] Medical Group [facility])(Den jennifer Clinic) DENTAL [id number] Admin - Hyperte nsion consult DOERNE BRADLEY 10/25 [facility] Medical Group [facility]D ental Clinic) [address] [place] [address] [facility] Flight Medicine ) TELE CONSULT [id number] JANETT Haywood 10/30 [facility] Medical Group [facility] [facility])(S cott Flight Medicin e Tm) [facility] Medical [facility] [facility] Flight Medicine ) OUTPATIENT [id number] S.C. sent from dental for bp HECTOR COLEMAN 10/31 Released w/o Limitations [address] [place] [address] Group [facility])(S cott Flight Medicin e Tm) [facility] Medical [facility] [facility] Flight Medicine ) TELE CONSULT [id number] JANETT Garner 11/01 [facility] Medical [facility] [facility])(S cott Flight Medicin e Tm) [facility] Medical [facility] Jenni [facility])([facility] Flight Medicine Tm) TELE CONSULT [id number] JANETT Arias 11/06 [employer] ([facility]S cott Flight Medicin e Tm) [employer] ([facility] Flight Medicine Tm) TELE CONSULT [id number] Yuki elise JANETT CHAN 11/19 [employer] ([facility]S cott Flight Medicin e Tm) [employer] ([facility] Flight Medicine Tm) TELE CONSULT [id number] Referra l DUNG Lau 11/25 [employer] ([facility]S cott Flight Medicin e Tm) [facility] [employer] ([facility] Flight Medicine Tm) TELE CONSULT [id number] Referra l JANETT James 11/28 [facility] Medical Group [facility] [place] ([facility]S cott Flight Medicin e Tm) [facility] [employer] ([facility] Flight Medicine Tm) TELE CONSULT [id number] Elevate d DUNG Caldwell 12/05 [facility] [employer] ([facility]S cott Flight Medicin e Tm) [facility] [employer] ([facility] Flight Medicine Tm) OUTPATIENT [id number] day 1 of 5 day bp check WAI BOONE 12/31 Released w/o Limitations [employer] ([facility]S cott Flight Medicin e Tm) [facility] [employer] ([facility] Flight Medicine Tm) OUTPATIENT [id number] bp check day 2 JERARDO BRADEN W 01/01 Released w/o Limitations [employer] ([facility]S cott Flight Medicin e Tm) [facility] [employer] ([facility] Flight Medicine Tm) OUTPATIENT [id number] phy. [phone] HECTOR COLEMAN 01/02 Released w/o Limitations [facility] [employer] ([facility]S cott Flight Medicin e Tm) [facility] [employer] ([facility] Flight Medicine Tm) OUTPATIENT [id number] day 4 of 5 day bp check JERARDO BRADEN 01/03 Released w/o Limitations [employer] [place] ([facility]S cott Flight Medicin e Tm) [employer] [facility] [place] ([facility] Flight Medicine ) OUTPATIENT [id number] day 5 of 5 day bp check HECTOR COLEMAN 01/06 Released w/o Limitations [employer] [place] ([facility]S cott Flight Medicin e Tm) [employer] [place] ([facility] Flight Medicine Tm) TELE CONSULT [id number] Sleep study request ed by [facility] LIBORIO KITCHEN 01/31 [employer] [place] ([facility]S cott Flight Medicin e Tm) [employer] ([facility] Flight Medicine ) TELE CONSULT [id number] [facility] Appt JANETT CHAN 05/21 Referred for Appointment [employer] [place] [employer] [facility] ([facility] ) TELE CONSULT [id number] STAT Referra l JANETT CHAN 05/27 Referred for Appointment [employer] [facility] ([facility]) [facility] ([facility] ) TELE CONSULT [id number] RTFS JANETT CHAN 07/21 Referred for Appointment [employer] [place] ([facility]) [employer] [facility] ([facility] ) TELE CONSULT [id number] Med request RADHA DAMON 09/15 [employer] ([facility]) [employer] [place] ([facility] ) OUTPATIENT [id number] S.C. High BP 160/114 ZONIA GILMORE 11/26 Released w/o Limitations [employer] ([facility]) [employer] ([facility] ) OUTPATIENT [id number] 5 DAY BP CHECK ZONIA GILMORE 11/28 Released w/o Limitations [employer] ([facility]) [employer] ([facility] ) OUTPATIENT [id number] b/p check day 2 JESICA SPENCER R 12/01 Released w/o Limitations [employer] ([facility]) [employer] ([facility] ) OUTPATIENT [id number] WALK-IN BP 4TH DAY JESICA SPENCER R 12/02 Released w/o Limitations [employer] ([facility]) [employer] ([facility] ) OUTPATIENT [id number] HTN TORSTEN Boucher 12/18 Released w/o Limitations [employer] ([facility]) [employer] ([facility] ) TELE CONSULT [id number] Referra JANETT Hdez 12/22 Referred for Appointment [employer] ([facility]) [employer] ([facility] ) TELE CONSULT [id number] abn CT- Scan finding JANETT CHAN 12/22 Referred for Appointment [employer] ([facility]) [employer] ([facility] ) OUTPATIENT [id number] ANNUAL PHA WAI BOONE 12/26 Released w/o Limitations [employer] ([facility]) [employer] ([facility] ) OUTPATIENT [id number] F/U PER TORSTEN MERCEDES 01/02 Released w/o Limitations [employer] ([facility]) [employer] ([facility] ) TELE CONSULT [id number] abn MRI liver JNAETT CHAN 01/05 Referred for Appointment [employer] ([facility]) [employer] [place] ([facility]Opt ometry) OUTPATIENT [id number] visual field defect DUNG ALBERTO Janny 01/06 Released w/o Limitations [employer] [place] ([facility]O ptometr y) [employer] [place] ([facility]Mno tt [facility] Medicine Tm) TELE CONSULT [id number] Labs/Ra JANETT Juarez 01/29 Referred for Appointment [employer] [place] ([facility]) [employer] ([facility] Tm) TELE CONSULT [id number] JANETT Welch 02/16 Referred for Appointment [employer] [place] ([facility]) [employer] [place] ([facility] Tm) OUTPATIENT [id number] RTFS ZONIA GILMORE 02/16 Released w/o Limitations [employer] [place] ([facility] Tm) [employer] [place] ([facility] Tm) TELE CONSULT [id number] JANETT Marquez 03/10 Referred for Appointment [employer] [place] ([facility] T[facility]) [employer] [place] ([facility] Tm) TELE CONSULT [id number] JANETT Ness 03/19 Referred for Appointment [employer] [place] ([facility] Tm) [employer] ([facility] Tm) TELE CONSULT [id number] JANETT Garner 04/23 Referred for Appointment [employer] ([facility] T[facility]) [employer] ([facility] Tm) TELE CONSULT [id number] JANETT Marquez 06/17 Referred for Appointment [employer] ([facility]) [employer] [facility] ) TELE CONSULT [id number] [facility] JANETT CHAN 08/13 Referred for Appointment [facility]) [address] [place] [address] Group [facility])([facility] ) TELE CONSULT [id number] labs JANETT CHAN 08/14 Referred for Appointment [employer] [facility])(S cott [facility] Medicin e Tm) [facility])([facility] ) OUTPATIENT [id number] shoulde r ISACC Shay 09/14 Released w/o Limitations [address] [place] [address] Group [facility])([facility] Tm) [address] [place] [address] Group [facility])([facility] ) TELE CONSULT [id number] RENEW SHELLY RUBIO 09/16 [facility])(S cott Flight Medicin e Tm) [facility] Medical Group [facility])(Phy sical Therapy) OUTPATIENT [id number] joint pain, localiz ed in the left shoulde TONI Kirk 09/30 Released w/o Limitations [facility])(P hysical Therapy ) [facility])(Phy sical Therapy) OUTPATIENT [id number] shoulde r CYNTHIA AHUJA 10/06 Released w/o Limitations [facility] [place] [facility]P hysical Therapy ) [facility]Phy sical Therapy) OUTPATIENT [id number] left shoulde COLIN Lyn 10/20 Released w/o Limitations [facility])(P hysical Therapy ) [facility] Medical [facility])(Phy sical Therapy) OUTPATIENT [id number] left hsoulde r CYNTHIA AHUJA 10/22 Released w/o Limitations [facility]P hysical Therapy ) [facility])(Phy sical Therapy) OUTPATIENT [id number] TONI ARNETT 11/03 Released w/o Limitations [address] [place] [address] [facility])(P hysical Therapy ) [address] [place] [address] [facility])([facility] ) TELE CONSULT [id number] Notes Entered by: Mode CATES 16 Nov 2011 1632 ------- ------- ------- ------- -- Insomni a CATHRYN CATES 11/[address] [place] [address] [facility])([facility] cott [facility] Tm) [address] [place] [address] [facility])(Phy sical Therapy) OUTPATIENT [id number] TONI Calvo 12/09 Released w/o Limitations [address] [place] [address])(P hysical Therapy ) [address] [place] [address])([facility] ) TELE CONSULT [id number] Notes Entered by: Mode CATES 16 Dec 2011 0741 ------- ------- ------- ------- -- Sleep Med Refill CATHRYN CATES [address] [place] [address] [facility])([facility] cott [facility] Tm) [address] [place] [address])([facility] ) OUTPATIENT [id number] sleep issues TORSTEN IRVING 12/30 Released w/o Limitations [address] [place] [address])([facility]) [address] [place] [address])([facility] ) OUTPATIENT [id number] flight physica l, yes wx AURORA MELENDEZ 12/31 Released w/o Limitations [address] [place] [address])([facility] Tm) [address] [place] [address])(Opt ometry) OUTPATIENT [id number] routine KIRK LINN 01/03 Released w/o Limitations [address] [place] [address] [facility])(O ptometr y) [address] [place] [address] [facility])([facility] ) TELE CONSULT [id number] Notes Entered by: JANETT CHAN 16 Mar 2012 1405 ------- ------- ------- ------- -- labs JANETT CHAN 03/16 Referred for Appointment [facility] Medical Group [facility])(S cott Flight Medicin e Tm) [facility] Group [facility])([facility] ) OUTPATIENT [id number] elbow pain ISACC KAPADIA 03/17 Released w/o Limitations [address] [place] [address] [facility])(S cott Flight Medicin e Tm) [facility] Group [facility])(Phy sical Therapy) OUTPATIENT [id number] LATERAL EPICOND YLITIS (TENNIS ELBOW) LEFT ZONIA GOMEZ 04/25 Released w/o Limitations [address] [place] [address])(P hysical Therapy ) [address] [place] [address])([facility] Medicine ) TELE CONSULT [id number] Notes Entered by: JANETT CHAN 16 May 2012 1225 ------- ------- ------- ------- -- AURORA Whittaker 05/[address] [place] [address] [facility])(S cott [facility] Medic[facility] Tm) [address] [place] [address])(Phy sical Therapy) OUTPATIENT [id number] ZONIA GOMEZ 05/19 Released w/o Limitations [address] [place] [address] [facility])(P hysical Therapy ) [facility] Medical Group [facility])([facility] ) OUTPATIENT [id number] Retirem ent TORSTEN Bryan 05/23 Released w/o Limitations [address] [place] [address] [facility])(S cott Flight Medicin e Tm) [address] [place] [address])([facility] ) TELE CONSULT [id number] Notes Entered by: YOMAIRA HEATON 07 Jul 2012 1709 ------- ------- ------- ------- -- Network Results - GASTROE NTEROLO GY 07/06/12 DEON ELMO OLEA 07/[address] [place] [address] [facility] [place] ([facility] Flight Medicin e Tm) [address] [place] [address] [facility] [place] [facility] Tm) TELE CONSULT [id number] Notes Entered by: YOMAIRA HEATON 08 Jul 2012926 ------- ------- ------- ------- -- Network Results - GASTROE NTEROLO GY 07/05/12 CHAVARRIA ELMO OLEA 07/[address] [place] [address] [facility] [place] ([facility] Flight Medicin e Tm) [facility] Outpatient Encounter [id number] 05/06 [facility] Outpatient Encounter [id number] 05[facility] En[facility] [id number] 06/06 [facility] OFFICE O/P EST MOD 30 MIN [id number] Diagnos is: ICD-10- CM I10 Essenti al (primar y) hyperte nsDAVINA Alan 06/06 [facility] Outpatient Encounter [id number] COY ALBERTO E 06/13 [facility] [id number] Diagnos is: ICD-10- CM E66.9 Obesity , unspeci fied NYANZI,SIGIFREDO DARRYL L 07/04 [facility] PSYTX W PT 45 MINUTES [id number] Diagnos is: ICD-10- CM F41.9 Anxiety disorde r, unspeci fied PEPITO GIRARD JACKSON 08/03 [facility] Outpatient Encounter [id number] PEPITO GIRARD JACKSON 09/06 [facility] Outpatient Encounter [id number] PEPITO GIRARD VEENA ARORATH 10/19 [facility] Outpatient Encounter [id number] 10/19 [facility] Outpatient Encounter [id number] PEPITO GIRARD VEENA HAYWOODBETH 10/31 [facility] PSYTX W PT 30 MINUTES [id number] Diagnos is: ICD-10- CM F41.1 General ized anxiety disorde r PEPITO GIRARD VEENA HAYWOODBETH 11/30 [facility] Outpatient Encounter [id number] 12/19 [facility] MED NUTRITION INDIV SUBSEQ [id number] Diagnos is: ICD-10- CM E66.811 Obesity , class 1 MARIO,STAC Y R 01/10 [facility] Outpatient Encounter [id number] 01/10 [facility] Outpatient Encounter [id number] NERY MARTIN 01/11 [facility] Outpatient Encounter [id number] 1 01/16 [facility] OFFICE O/P EST MOD 30 MIN [id number] Diagnos is: ICD-10- CM F41.1 General ized anxiety disorde r FLORENTIN RODRIGUEZ 01/23 [facility] Outpatient Encounter [id number] JONATHAN COUCH T 01/25 [facility] Outpatient Encounter [id number] JONATHAN COUCH T 01/29 [facility] Outpatient Encounter [id number] 02/12 [facility] Procedures Combined list of: 1) Procedures from Department of [facility] Affairs facilities going back up to thelast 18 months, not all [place] non-surgical procedures are included; 2) All procedures from the Department of Defense facilities. Procedure Procedure Type Code Date Perfomer Comments Sourc e No data available for this section [facility] SCREENING TEST, PURE TONE, AIR ONLY 2002 [facility] PROSTATE CANCER SCREENING; DIGITAL RECTAL EXAMINATION 2003 DoD SCREENING TEST, PURE TONE, AIR ONLY 2004 [facility] DETERMINATION OF REFRACTIVE STATE 2004 DoD PROFESSIONAL SER FOR ALLERGEN IMMUNOTHER IN THE OFFICE/INSTITUTION OF THE PRESCRIBING PHYSICIAN/OTH QUALIFIED HEALTH MINISTER HELPER,INCLUD ING PROVISION OF ALLERGENIC EXTRACT;2/MORE INJECTIONS 1999 [facility] THERAPEUTIC PROCEDURE, 1 OR MORE AREAS, EACH 15 MINUTES; THERAPEUTIC EXERCISES TO DEVELOP STRENGTH AND ENDURANCE, RANGE OF MOTION AND FLEXIBILITY 2011 [facility] PHYSICAL THERAPY EVALUATION 2011 [facility] FUNDUS PHOTOGRAPHY WITH INTERPRETATION AND REPORT 2011 [facility] COLOR VISION EXAMINATION, EXTENDED, EG, ANOMALOSCOPE OR EQUIVALENT 2011 [facility] THERAPEUTIC PROCEDURE, 1 OR MORE AREAS, EACH 15 MINUTES; THERAPEUTIC EXERCISES TO DEVELOP STRENGTH AND ENDURANCE, RANGE OF MOTION AND FLEXIBILITY 2011 [facility] PHYSICAL THERAPY RE-EVALUATION 2011 [facility] THERAPEUTIC PROCEDURE,1 OR MORE AREAS,EACH 15 MINUTES;NEUROMUSCUL AR REEDUCATION OF MOVEMENT,BALANCE,CO ORDINATION,KINESTHE TIC SENSE,POSTURE,AND/O R PROPRIOCEPTION FOR SITTING AND/OR STANDING ACTIVITIES 2011 [facility] THERAPEUTIC PROCEDURE, 1 OR MORE AREAS, EACH 15 MINUTES; THERAPEUTIC EXERCISES TO DEVELOP STRENGTH AND ENDURANCE, RANGE OF MOTION AND FLEXIBILITY 2011 [facility] MANUAL THERAPY TECHNIQUES (EG, MOBILIZATION/ MANIPULATION, MANUAL LYMPHATIC DRAINAGE, MANUAL TRACTION), 1 OR MORE REGIONS, EACH 15 MINUTES 2010 [facility] THERAPEUTIC PROCEDURE, 1 OR MORE AREAS, EACH 15 MINUTES; MASSAGE, INCLUDING EFFLEURAGE, PETRISSAGE AND/OR TAPOTEMENT (STROKING, COMPRESSION, PERCUSSION) 2010 [facility] FITTING OF SPECTACLES, EXCEPT FOR APHAKIA; BIFOCAL 2010 [facility] ELECTROCARDIOGRAM, ROUTINE ECG WITH AT LEAST 12 LEADS; WITH INTERPRETATION AND REPORT 2010 [facility] BLOOD PRESSURE MEASURED (CKD)(DM) 2009 [facility] PURE TONE AUDIOMETRY (THRESHOLD); AIR ONLY 2009 [facility] BLOOD PRESSURE MEASURED (CKD)(DM) 2009 [facility] BLOOD PRESSURE MEASURED (CKD)(DM) 2009 [facility] SCANNING COMPUTERIZED OPHTHALMIC DIAGNOSTIC IMAGING, POSTERIOR SEGMENT, (EG, SCANNING LASER) WITH INTERPRETATION AND REPORT, UNILATERAL 2008 [facility] SCANNING COMPUTERIZED OPHTHALMIC DIAGNOSTIC IMAGING, POSTERIOR SEGMENT, (EG, SCANNING LASER) WITH INTERPRETATION AND REPORT, UNILATERAL 2008 [facility] TYPHOID VACCINE, CAPSULAR POLYSACCHARIDE (VICPS), FOR INTRAMUSCULAR USE 2008 [facility] THERAPEUTIC PROCEDURE, 1 OR MORE AREAS, EACH 15 MINUTES; THERAPEUTIC EXERCISES TO DEVELOP STRENGTH AND ENDURANCE, RANGE OF MOTION AND FLEXIBILITY 2007 [facility] EXERCISE EQUIPMENT 2007 [facility] SCREENING TEST OF VISUAL ACUITY, QUANTITATIVE, BILATERAL 2007 [facility] DETERMINATION OF REFRACTIVE STATE 2007 [facility] VIS FUNCT SCREEN,AUTOMAT/SEMI -AUTOMAT BILAT QUANT DETERM VISUAL ACUITY,OCULAR ALIGN,COLOR VISION,PSEUDOISOCHR OMAT PLATES,& FIELD VIS (MAY INC ALL/SOME SCRN DETERM FOR CONTRAST SENSITIV,VIS UND GLARE) 2007 [facility] SCREENING TEST OF VISUAL ACUITY, QUANTITATIVE, BILATERAL 2006 [facility] Physical Medicine Physical Therapy Re-Evaluation Physical Medicine Physical Therapy Re-Evaluation 48666 2011 ZONIA GOMEZ [facility] Physical Therapy: ___ Se ion Segments, 15 Minutes Each Physical Therapy: ___ Session Segments, 15 Minutes Each 75231 2011 ZONIA GOMEZ Reviewed exercise techniques for stretching and eccentric strengthening. Reviewed his deep tissue massage. One-on-one therapeutic exercises x12 minutes [facility] Physical Therapy: ___ Se ion Segments, 15 Minutes Each Physical Therapy: ___ Session Segments, 15 Minutes Each 49545 2011 ZONIA GOMEZ Strengthening and ROM program under direct supervision x 15 minutes. Pt tolerated treatment well. [facility] Physical Therapy Neuromuscular Re-education Physical Therapy Neuromuscular Re-education 95887 2011 ZONIA GOMEZ neuromuscular retraining and eccentric strengthening under direct supervision x 10 minutes. Pt tolerated treatment well. [facility] Physical Medicine Physical Therapy Evaluation Physical Medicine Physical Therapy Evaluation 70961 2011 ZONIA GOMEZ [facility] Fundus Photography Fundus Photography 12143 2011 KIRK LINN Visual Moran Test Extended Examination Visual Moran Test Extended Examination 20018 2011 KIRK LINN Scanning Computerized Ophthalmic Diagnostic Imaging Optic Nerve Scanning Computerized Ophthalmic Diagnostic Imaging Optic Nerve 17666 2011 KIRK LINN [employer] Fitting Bifocals (Not For Aphakia) [employer] Fitting Bifocals (Not For Aphakia) 03570 2011 KIRK LINN Determination Of Refractive State Determination Of Refractive State 78936 2011 KIRK LINN Ophthalmological Prior Patient Start Comprehensive Care Ophthalmological Prior Patient Start Comprehensive Care 58923 2011 KIRK LINN Extensive Color Vision Testing Extensive Color Vision Testing 34464 2011 AURORA MELENDEZ [facility] Tonometry Tonometry 46787 2011 AURORA MELENDEZ [facility] Threshold Audiogram (Pure Tone) Threshold Audiogram (Pure Tone) 56052 2011 AURORA MELENDEZ [facility] Electrocardiogram Electrocardiogram 33429 12/31 AURORA MELENDEZ Visual Function Screening Visual Function Screening 82350 2011 AURORA MELENDEZ Screening Test Of Visual Acuity, Quantitative, Bilateral Screening Test Of Visual Acuity, Quantitative, Bilateral 49782 2011 AURORA MELENDEZ [facility] Physical Therapy: ___ Se ion Segments, 15 Minutes Each Physical Therapy: ___ Session Segments, 15 Minutes Each 84479 2011 TONI ARNETT [facility] Physical Therapy Mobilization Joint Physical Therapy Mobilization Joint 49201 2011 TONI ARNETT [facility] Physical Medicine Physical Therapy Re-Evaluation Physical Medicine Physical Therapy Re-Evaluation 06663 2011 TONI ARNETT Physical Medicine Physical Therapy Re-Evaluation Physical Medicine Physical Therapy Re-Evaluation 68271 2011 TONI ARNETT [facility] Physical Therapy Neuromuscular Re-education Physical Therapy Neuromuscular Re-education 11237 2011 [facility] Mobilization Joint Physical Therapy Mobilization Joint 92199 2011 [facility]: ___ Se ion Segments, 15 Minutes Each Physical Therapy: ___ Session Segments, 15 Minutes Each 55816 2011 [facility] Physical Therapy: ___ Se ion Segments, 15 Minutes Each Physical Therapy: ___ Session Segments, 15 Minutes Each 36854 2011 [facility] Physical [facility] Mobilization Joint Physical Therapy Mobilization Joint 37312 2011 [facility] Physical Therapy Neuromuscular Re-education Physical Therapy Neuromuscular Re-education 86554 2011 [place] Physical Therapy Mobilization Joint Physical Therapy Mobilization Joint 06288 2010 [facility] Physical Therapy Neuromuscular Re-education Physical Therapy Neuromuscular Re-education 64079 2010 [facility] Physical Therapy: ___ Se ion Segments, 15 Minutes Each Physical Therapy: ___ Session Segments, 15 Minutes Each 13413 2010 CYNTHIA AHUJA [facility] Physical Therapy Ma age Physical Therapy Massage 88906 2010 TONI ARNETT Post shoulder stretch/massag e, IR and and x 15 min DoD Osteopathic Manip Treatment (OMT) 1-2 Body Regions Involved Osteopathic Manip Treatment (OMT) 1-2 Body Regions Involved [address] and T spine Ext Gr 5 DoD Physical Medicine Physical Therapy Evaluation Physical Medicine Physical Therapy Evaluation 33461 2010 TONI ARNETT [facility] Fitting Bifocals (Not For Aphakia) Spectacles Services Fitting Bifocals (Not For Aphakia) 52189 2010 DUNG ALBERTO Determination Of Refractive State Determination Of Refractive State 35775 2010 DUNG ALBERTO Fundus Photography Fundus Photography 65258 2010 DUNG ALBERTO Scanning Computerized Ophthalmic Diagnostic Imaging Optic Nerve Scanning Computerized Ophthalmic Diagnostic Imaging Optic Nerve 05514 2010 DUNG ALBERTO Visual Moran Test Extended Examination Visual Moran Test Extended Examination 85389 2010 DUNG ALBERTO Ophthalmological Prior Patient Start Comprehensive Care Ophthalmological Prior Patient Start Comprehensive Care 56163 2010 DUNG ALBERTO ECG 12-Lead With Interpretation And Report ECG 12-Lead With Interpretation And Report 74188 2010 WAI BOONE Tonometry Tonometry 56727 2010 WAI BOONE Extensive Color Vision Testing Extensive Color Vision Testing 40705 2010 WAI BOONE Screening Test Of Visual Acuity, Quantitative, Bilateral Screening Test Of Visual Acuity, Quantitative, Bilateral 50909 2010 WAI BOONE Audiogram (Screening) Audiogram (Screening) 09604 2010 WAI BOONE A e ment & Intervention Blood Pre ure Measured 2009 WILI MONIQUE Threshold Audiogram (Pure Tone) Threshold Audiogram (Pure Tone) 98554 2009 HECTOR COLEMAN H1 Jung Visual Function Screening Visual Function Screening 94748 2009 HECTOR COLEMAN Corrected better than 20/20 bilateral Jung A e ment & Intervention Blood Pre ure Measured 2009 WILI MONIQUE A e ment & Intervention Blood Pre ure Measured 2009 WILI MONIQUE Scanning Computerized Ophthalmic Diagnostic Imaging 2008 DUNG ALBERTO Visual Moran Test Extended Examination Visual Moran Test Extended Examination 23974 2008 DUNG ALBERTO Ophthalmological Prior Patient Start Intermediate Level Care Ophthalmological Prior Patient Start Intermediate Level Care 31130 2008 DUNG ALBERTO [employer] [facility] Fitting Bifocals (Not For Aphakia) [employer] [facility] Fitting Bifocals (Not For Aphakia) 17538 2008 DUNG ALBERTO Determination Of Refractive State Determination Of Refractive State 30798 2008 DUNG ALBERTO Corneal Pachymetry, Bilateral With Interpret And Report Corneal Pachymetry, Bilateral With Interpret And Report 23031 2008 DUNG ALBERTO Scanning Computerized Ophthalmic Diagnostic Imaging 2008 DUNG ALBERTO Fundus Photography Fundus Photography 05490 2008 DUNG ALBERTO Visual Moran Test Extended Examination Visual Moran Test Extended Examination 81113 2008 DUNG ALBERTO Ophthalmological New Patient Start Comprehensive Care Ophthalmological New Patient Start Comprehensive Care 67377 2008 DUNG ALBERTO Typhoid Vaccine Vi Capsular Polysaccharide, For Intramus Use Typhoid Vaccine Vi Capsular Polysaccharide, For Intramus Use 67679 2008 ZONIA GILMORE Extensive Color Vision Testing Extensive Color Vision Testing 46098 2008 ZONIA GILMORE Visual Function Screening Visual Function Screening 64709 2008 ZONIA GILMORE Screening Test Of Visual Acuity, Quantitative, Bilateral Screening Test Of Visual Acuity, Quantitative, Bilateral 19359 2008 ZONIA GILMORE Threshold Audiogram (Pure Tone) Threshold Audiogram (Pure Tone) 62477 2008 ZONIA GILMORE Physical Therapy: ___ Se ion Segments, 15 Minutes Each Physical Therapy: ___ Session Segments, 15 Minutes Each 40187 2007 DELLA BANERJEE Physical Medicine Physical Therapy Re-Evaluation Physical Medicine Physical Therapy Re-Evaluation 24961 2007 DELLA BANERJEE Exercise equipment 2007 DELLA BANERJEE Physical Therapy: ___ Se ion Segments, 15 Minutes Each Physical Therapy: ___ Session Segments, 15 Minutes Each 74924 2007 DELLA BANERJEE [facility] Physical Medicine Physical Therapy Evaluation Physical Medicine Physical Therapy Evaluation 84365 2007 DELLA BANERJEE [facility] Screening Test Of Visual Acuity, Quantitative, Bilateral Screening Test Of Visual Acuity, Quantitative, Bilateral 78897 2007 TYSHAWN RON [facility] Fitting Bifocals (Not For Aphakia) Spectacles Services Fitting Bifocals (Not For Aphakia) 19515 2007 TYSHAWN ORN Determination Of Refractive State Determination Of Refractive State 75482 2007 TYSHAWN RON [facility] Ophthalmological New Patient Start Comprehensive Care Ophthalmological New Patient Start Comprehensive Care 96746 2007 TYSHAWN RON Screening Test Of Visual Acuity, Quantitative, Bilateral Screening Test Of Visual Acuity, Quantitative, Bilateral 32376 2007 VICKIE CHAKRABORTY [facility] Threshold Audiogram (Pure Tone) Threshold Audiogram (Pure Tone) 07523 2007 VICKIE CHAKRABORTY [facility] ECG Performance of Tracing Only ECG Performance of Tracing Only 05115 2004 BAUTISTA DYSON [facility] Screening Test Of Visual Acuity, Quantitative, Bilateral Screening Test Of Visual Acuity, Quantitative, Bilateral 00744 2004 BAUTISTA DYSON [facility] Threshold Audiogram (Pure Tone) Threshold Audiogram (Pure Tone) 07835 2004 BAUTISTA DYSON [facility] ECG Interpretation And Report Only ECG Interpretation And Report Only 15410 2004 BAUTISTA DYSON [facility] Social History Combined list of available smoking, tobacco, and other social history from [facility] of Defense and Veterans Affairs facilities. Social History Type Response Date Comment Sour e Tobacco smoking status [facility] NEVER USED 06/06/2024 [facility] This section is an empty social history section. DoD Assessment and Plan Combined list of future care activities from Department of Defense and Veterans Affairs facilities (e.g., assessment and plan notes, appointments, orders, and referrals). Additional future care activities may be listed in the Plan of Care section. Result Assessment and Plan Date Source Assessment and Plan No data available for this section 02/26/2025 Ambulatory Pharmacy Plan of Care List of future care activities from Department of Veterans Affairs facilities. Additional future care activities may be listed in the Assessment and Plan section. Date/Time Care Activity Care Activity Detail Gaetano ty 04/25/2025 AMBULATORY - NONE AMBULATORY - NONE [facility] Functional Status Combined list of recent functional and cognitive assessments recorded at [facility] and [facility] ([facility] Functional [place] Measurement (FIM) Scale: 1 = Total Assistance (Subject = 0% +), 2 = Maximal Assistance (Subject = 25% +), 3 = Moderate Assistance (Subject = 50% +), 4 = Minimal Assistance (Subject = 75% +), 5 = Supervision, 6 = Modified [place] (Device), 7 = Complete [place] (Timely, Safely). Assessment Date/Time Source Assessment Type Assessment Skill Assessment Score Assessment Details No data available for this section
--- OUTSIDE RECORDS SUMMARY | 2025-02-26 10:48 | XMS_ITS | Clinical Summary ---
Author Organization [facility] Address [address] [place] [id number] Care Team Providers Care Prize Fighter Name Role Phone Humberto Lorenz MD Primary Care Provider [phone] Social History Tobacco Use Types Packs/Day Years [...] 1962 Annual Physical 1965 Hepatitis C 01/13/1980 Pneumococcal Vaccine: 50+ Years (1 of 1 - PCV) 01/13/2012 DTaP, Tdap and Td Vaccines (2 - Td or Tdap) 10/21/2019 10/21/2009, 09/22/1999, 07/22/1999, Additional history exists COVID-19 Vaccine ( season) 2024 07/30/2023, 10/08/2022, 01/31/2022, Additional history exists Meningococcal Vaccine Aged Out [...] age to complete this topic Care Teams Prize Fighter Relationship Specialty Start Date End Date Humberto Lorenz MD [address] [place] [id number] PCP - General INTERNAL MEDICINE 10/13/23
[2025-02-26 11:28] LABS: Alanine Aminotransferase 25 U/L (6-50); Aspartate Amino Transferase 32 U/L (17-59)
== END 2025-02-26 10:40 | disposition home or self-care (01) ==
LOC: ANHLAB 10:41
PROVIDERS: PCP Internal Medicine; Visit Provider Podiatrist Foot & Ankle Surgery
DX: B35.1 Tinea unguium (principal)
CPT/HCPCS: 36415; 84450; 84460

== ENCOUNTER 2025-04-02 12:01 | Outpatient (CLI) | payer OTHER, SELFPAY ==
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
[2025-04-02 12:28] LABS: Basophils Absolute Auto 0.1 K/mm3 (0.0-0.1); Basophils Percent Auto 0.9 % (0.2-1.2); Eosinophils Absolute Auto 0.1 K/mm3 (0-0.3); Eosinophils Percent Auto 1.5 % (0-4.4); Hematocrit 50.8 % (42.0-52.0); Hemoglobin 17.9 g/dL (14.0-18.0); Immature Granulocyte Absolute 0.02 K/mm3 (0.00-0.031); Immature Granulocyte Percent A 0.3 % (0-0.5); Lymphocytes Absolute Auto 1.85 K/mm3 (0.9-3.2); Lymphocytes Percent Auto 23.9 % (18.3-44.2); Mean Corpuscular HGB Conc 35.2 g/dl (32-36); Mean Corpuscular Hemoglobin 32.4 pg (26-34); Mean Platelet Volume 9.7 fl (7.4-10.4); Monocytes Absolute Auto 0.7 K/mm3 (0.1-0.6); Monocytes Percent Auto 8.4 % (2.6-8.5); Platelet Count Result 287 k/mm3 (150-375); Red Blood Count 5.52 M/mm3 (4.6-6.20); Red Cell Distribution Width 12.5 % (11.5-14.5); White Blood Count 7.8 K/mm3 (4.5-10.0)
[2025-04-02 12:38] LABS: Alanine Aminotransferase 23 U/L (6-50); Albumin Level 4.7 g/dL (3.5-5.1); Alkaline Phosphatase 69 U/L (38-126); Anion Gap 9 mmol/L (4-12); Aspartate Amino Transferase 23 U/L (17-59); Bilirubin,Total 1.8 mg/dL (0.2-1.3); Blood Urea Nitrogen 16 mg/dL (9-20); Calcium 9.1 mg/dL (8.4-10.2); Carbon Dioxide 26 mmol/L (22-30); Chloride 105 mmol/L (98-107); Cholesterol 172 mg/dL (0-200); Estimated Glomerular Filt Rate 54; Glucose 87 mg/dL (65-110); HDL Direct 54 mg/dL; Potassium 4.1 mmol/L (3.4-5.0); Sodium 140 mmol/L (137-145); Total Protein 7.8 g/dL (6.3-8.2); Triglycerides 96 mg/dL (<150)
[2025-04-02 12:49] LABS: LDL Cholesterol Direct 92 mg/dL
[2025-04-02 12:50] LABS: Hemoglobin A1C 4.7 % (<5.7)
[2025-04-02 12:55] LABS: Free T4 Free Thyroxine 1.02 ng/dL (0.78-2.19)
--- OUTSIDE RECORDS SUMMARY | 2025-04-02 13:09 | XMS_ITS | Clinical Summary ---
Author Organization [facility] [employer] Address [address] [place] [address] Care Team Providers Care Drying Room Operator Name Role Phone Unavailable Primary Care Provider Unavailabl e Source Comments [facility] [employer],non-owned Affiliates and Associated Physician Practices is amultiple site organization consisting of ambulatory clinics and hospital sitesin [place], [place], [place] and [place]. This disclosure is being madepursuant to the Care Everywhere program and may not contain all information available regarding this patient. 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
--- OUTSIDE RECORDS SUMMARY | 2025-04-02 13:09 | XMS_ITS | Clinical Summary ---
Author Organization [facility] Address [address] [place] [address] Phone Care Team Providers Care Fisher Trap Name Role Phone Michael Hamlin MD Primary Care Provider [phone] Allergies No known active allergies Medications lisinopril [...] 2:46 AM CDT Height 175.3 cm (5' 9) 02/09/2017 2:46 AM CDT Body Mass Index 30.27 02/09/2017 2:46 AM CDT Plan of Treatment Not on file Care Teams Fisher Trap Relationship Specialty Start Date End Date Michael Hamlin MD [address] [address] PCP - General Family Medicine 02/08/17
== END 2025-04-02 12:02 | disposition home or self-care (01) ==
LOC: ANHLAB 12:04
PROVIDERS: PCP Internal Medicine; Visit Provider Internal Medicine
DX: Z13.29 Encounter for screening for other suspected endocrine disorder (principal); E78.2 Mixed hyperlipidemia; I10 Essential (primary) hypertension; M54.50 Low back pain, unspecified; Z79.899 Other long term (current) drug therapy
CPT/HCPCS: 36415; 72110; 72170; 80053; 80061; 83036; 84439; 84443; 85025

== ENCOUNTER 2025-06-05 09:34 | Outpatient (CLI) | payer OTHER, SELFPAY ==
--- NOTE | ~2025-06-05 | US_ITS ---
EXAM: Focused ultrasound examination of the soft tissues of the right posterior shoulder HISTORY: M25.511 - Pain in right shoulder palpable abnormality TECHNIQUE: Sonographic evaluation of the soft tissues of the right posterior shoulder were performed assessing grayscale appearance and color Doppler flow. COMPARISON: Reference is made to a CT examination of the chest dated 12/13/2019 which demonstrates a fat attenuation, well-circumscribed 5.4 x 2.9 x 1.8 cm focus within the lateral margin of the trapezius muscle, consistent with a lipoma. FINDINGS: Sonographic evaluation of the area of clinical concern demonstrates an avascular focus of mixed echogenicity measuring 5.4 x 2.4 x 1.5 cm, corresponding to the abnormality seen on CT examination in 2023, consistent with a benign lipoma. Sonographic evaluation of the remainder of the soft tissues of the right posterior shoulder demonstrate benign fibrofatty and fibromuscular elements without a cystic or solid lesion of concern. 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 Reviewed, dictated and finalized at location A. 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
--- OUTSIDE RECORDS SUMMARY | 2025-06-05 09:57 | XMS_ITS | Continuity of Care Document ---
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 It does not include entries that were removed or entered in error. Problem Status Onset Date Problem Type Date of Resolution Comments Source Benign essential hypertension Active Condition [facility] Elevated PSA Active Condition [facility] Generalized anxiety disorder Active Condition . [facility] Gilbert's syndrome Active Condition [facility] Hyperlipidemia Active Condition . [facility] Insomnia Active Condition [facility] Outpatient Physician Consultation Active Condition DoD visit for: services physical nursing home Active Condition DoD LATERAL EPICONDYLITIS (TENNIS ELBOW) [...] activities- Total time of patient encounter with safety counselor is 35 minutes. DoD visit for: [...] to 20/20 delmis prior to being returned [facility] Diagnosis: ICD-10-CM E66.811 Obesity, class 1 Active Diagnosis [facility] Diagnosis: ICD-10-CM F41.1 Generalized anxiety disorder Active Diagnosis [facility] Diagnosis: ICD-10-CM F41.9 Anxiety disorder, unspecified Active Diagnosis [facility] Diagnosis: ICD-10-CM E66.9 Obesity, unspecified Active Diagnosis [facility] Diagnosis: ICD-10-CM I10 Essential (primary) hypertension Active Diagnosis [facility] Medications Combined list of outpatient medications [...] RESPIR ATORY (INHAL ATION) ACTIVE ALIZE TRUJILLO 2023 [facility] ASPIRIN 81MG TAB,EC TAKE ONE TABLET BY MOUTH ONCE A DAY ORAL ACTIVE ALIZE TRUJILLO 2023 [facility] BUPROPION (WELLBUTRIN XL) 24HR TAB,SA (EXTENDED RELEASE) TAKE 150MG BY MOUTH ONCE A DAY ORAL ACTIVE ALIZE TRUJILLO 2023 [facility] CHOLECALCIF VIVIAN 50MCG (2,000UNIT) TAB TAKE ONE TABLET BY MOUTH ONCE A DAY ORAL ACTIVE ALIZE TRUJILLO 2023 [facility] CYANOCOBALA MIN 1000MCG TAB TAKE ONE TABLET BY MOUTH ONCE A DAY ORAL ACTIVE ALIZE TRUJILLO 2023 [facility] DILTIAZEM (EQV-TIAZAC AB4) 360MG 24HR CAP TAKE 1 CAPSULE BY MOUTH EVERY MORNING BEFORE A MEAL ORAL ACTIVE ALIZE TRUJILLO 2023 [facility] TRAZODONE HCL 100MG TAB TAKE ONE-HALF TABLET BY MOUTH AT BEDTIME ORAL ACTIVE ALIZE TRUJILLO 2023 [facility] VALSARTAN 320MG TAB TAKE ONE TABLET BY MOUTH ONCE A DAY ORAL ACTIVE ALIZE TRUJILLO 2023 [facility] Allergies, Adverse Reactions, Alerts Combined list of allergies from Department of Defense and Veterans Affairs facilities. It does not include entries that were removed or entered in error. Substance Category Reaction Severity Reaction type Status Date Reported Comments Source No Known Allergies Drug allergy (disorder) active 8 [employer] SHELLFISH Propensity to adverse reactions to food (finding) Diarrhea MILD active [facility] Immunizations Combined list of available immunizations from the Department of Defense and Veterans Affairs facilities. Immunization Series Date Given Administered By Site Reaction Lot Number CVX Code Drug Lead Oracle Developer Status Comments Source TDAP 2023 CHRISTOPHER LYNN Janny LEFT DELTO ID [id number] 115 complet ed ADMINISTE RED AT AL, [facility] COVID-19 ([employer]), MRNA, LNP-S, PF, TOM-SUCROSE, 30 MCG/0.3 ML (AGES 12+ YEARS) 2022 309 complet ed HISTORICA L INFORMATI ON - FROM OTHER PROVIDER, [facility] N INFLUENZA, UNSPECIFIED FORMULATION 2022 88 complet ed HISTORICA L INFORMATI ON - FROM PATIENT'S WRITTEN RECORD, [facility] N ZOSTER RECOMBINANT 2 2022 187 complet ed HISTORICA L INFORMATI ON - FROM OTHER PROVIDER, [facility] COVID-19 ([employer]), MRNA, LNP-S, BIVALENT, PF, 30 MCG/0.3 ML DOSE 1 2021 300 complet ed HISTORICA L INFORMATI ON - FROM OTHER PROVIDER, [facility] ZOSTER RECOMBINANT 1 2021 187 complet ed HISTORICA L INFORMATI ON - FROM OTHER PROVIDER, [facility] N COVID-19 (MODERNA), MRNA, LNP-S, PF, 100 MCG/0.5ML DOSE OR 50 MCG/0.25ML DOSE 1 2021 207 complet ed HISTORICA L INFORMATI ON - FROM OTHER REGISTRY, [facility] COVID-19 ([employer]), MRNA, LNP-S, PF, 30 MCG/0.3 ML DOSE 3 2021 208 complet ed HISTORICA L INFORMATI ON - FROM OTHER PROVIDER, [facility] COVID-19 ([employer]), MRNA, LNP-S, PF, 30 MCG/0.3 ML DOSE 2 2020 208 complet ed HISTORICA L INFORMATI ON - FROM OTHER PROVIDER, [facility] Influenza, injectable, MDCK, preservative free, quadrivalent 2020 [facility], () Not Given Influenza , injectabl e, MDCK, preservat daniel free, quadrival ent [facility] COVID-19, mRNA, LNP-S, PF, 30 mcg/0.3 mL dose 2020 ALUL, [employer] [place] (PFR) Not Given COVID-19, mRNA, LNP-S, PF, 30 mcg/0.3 mL dose DoD COVID-19 (PFIZER), MRNA, LNP-S, PF, 30 MCG/0.3 ML DOSE 1 2020 208 complet ed HISTORICA L INFORMATI ON - FROM OTHER PROVIDER, [facility] typhoid Vi capsular polysaccharid e vac 2011 [id number] sanofi pasteur complet ed typhoid Vi capsular polysacch aride vac 02/26/12 Given Ambulat ory Pharmac y typhoid Vi capsular polysaccharid e vaccine 1 2011 [id number] Sanofi Pasteur (PMC) complet ed typhoid Vi capsular polysacch aride vaccine DoD influenza virus vaccine, live 2010 [id number] Medimmune Inc comple t ed influenza virus vaccine, live 08/06/11 Given Ambulat ory Pharmac y influenza virus vaccine, live, attenuated, for intranasal use 18 2010 [id number] 111 [employer] Inc. (MED) complet ed influenza virus vaccine, live, attenuate d, for intranasa l use DoD influenza virus vaccine,split 2009 [id number] 15 sanofi pasteur complet ed influenza virus vaccine,s plit 09/15/10 Given Ambulat ory Pharmac y influenza virus vaccine, split virus (incl. purified surface antigen)-reti red CODE 1 2009 [id number] 15 Sanofi Pasteur (PMC) complet ed influenza virus vaccine, split virus (incl. purified surface antigen)- retired CODE DoD Novel influenza-H1N 1-09, injectable 2009 127 complet ed Novel influenza -P5O3-30, injectabl e 10/29/09 Given Ambulat ory Pharmac y Novel influenza-H1N 1-09, injectable 2009 127 Transcribed (TRS) complet ed Novel influenza -C5I4-23, injectabl e DoD tetanus, diphtheria, acellular pertu is 2009 [id number] 115 GlaxoSmithKli wy complet ed tetanus, diphtheri a, acellular pertussis 10/21/09 Given Ambulat ory Pharmac y tetanus toxoid, reduced diphtheria toxoid, and acellular pertu is vaccine, adsorbed 1 2009 [id number] 115 [facility] ([place]) complet ed tetanus toxoid, reduced diphtheri a toxoid, and acellular pertussis vaccine, adsorbed DoD influenza virus vaccine, live 2008 [id number] 111 Medimmune Inc complet ed influenza virus vaccine, live 08/09/09 Given Ambulat ory Pharmac y influenza virus vaccine, live, attenuated, for intranasal use 1 2008 [id number] 111 MedImmune, Inc. (MED) complet ed influenza virus vaccine, live, attenuate d, for intranasa l use DoD typhoid Vi capsular polysaccharid e vac 2008 [id number] 101 sanofi pasteur complet ed typhoid Vi capsular polysacch aride vac 01/10/09 Given Ambulat ory Pharmac y typhoid Vi capsular polysaccharid e vaccine 1 2008 [id number] 101 Sanofi Pasteur (PMC) complet ed typhoid Vi capsular polysacch aride vaccine DoD influenza virus vaccine, live 2007 [id number] 111 Medimmune Inc comple t ed influenza virus vaccine, live 07/19/08 Given Ambulat ory Pharmac y influenza virus vaccine, live, attenuated, for intranasal use 1 2007 [id number] 111 MedImmune, Inc. (MED) complet ed influenza virus vaccine, live, attenuate d, for intranasa l use DoD meningococcal A,C,Y,W-135 (MCV4P) 2007 [id number] 114 sanofi pasteur complet ed meningoco ccal A,C,Y,W-1 35 (MCV4P) 04/23/08 Given Ambulat ory Pharmac y meningococcal polysaccharid e (groups A, C, Y and W-135) diphtheria toxoid conjugate vaccine (MCV4P) 1 2007 [id number] 114 Sanofi Pasteur (PMC) complet ed meningoco [...] ory Pharmac y influenza virus vaccine,split 2006 [id number] 15 GlaxoSmithKli ne complet ed influenza virus vaccine,s plit 10/06/07 Given Ambulat ory Pharmac y influenza virus vaccine, split virus (incl. purified surface antigen)-reti red CODE 1 2006 [id number] 15 [employer]line ([place]B) complet ed influenza virus vaccine, split virus (incl. purified surface antigen)- retired CODE DoD hepatitis B vaccine, adult dosage 2 2006 [id number] 43 [employer]line (SKB) complet ed hepatitis B vaccine, adult dosage DoD hepatitis B adult vaccine 2006 [id number] 43 GlaxoSmithKli ne complet ed hepatitis B adult vaccine 08/08/07 Given Ambulat ory Pharmac y hepatitis B vaccine, adult dosage 0 2006 [id number] 43 [employer]Kline ([place]) complet ed hepatitis B vaccine, adult dosage DoD anthrax vaccine 2006 [id number] [employer] complet ed anthrax vaccine 07/10/07 Given Ambulat ory Pharmac y anthrax vaccine 6 2006 [id number] 24 [employer] [place] ([facility] complet ed anthrax vaccine DoD vaccinia (smallpox) vaccine 2006 [id number] [employer] complet ed vaccinia (smallpox ) vaccine 06/07/07 Given Ambulat ory Pharmac y vaccinia (smallpox) vaccine 1 2006 [id number] [facility] ed vaccinia (smallpox ) vaccine DoD typhoid Vi capsular polysaccharid e vac 2006 [id number] sanofi pasteur complet ed typhoid Vi capsular polysacch aride vac 01/06/07 Given Ambulat ory Pharmac y anthrax vaccine 2006 [id number] 24 [employer] complet ed anthrax vaccine 01/06/07 Given Ambulat ory Pharmac y anthrax vaccine 6 2006 [id number] 24 [employer] [place] ([facility]) complet ed anthrax vaccine DoD typhoid Vi capsular polysaccharid e vaccine 1 2006 [id number] 101 Sanofi Pasteur ([facility]) complet ed typhoid Vi capsular polysacch aride vaccine DoD influenza virus vaccine, live 2005 [id number] 111 [employer] Inc comple t ed influenza virus vaccine, live 07/06/06 Given Ambulat ory Pharmac y influenza virus vaccine, live, attenuated, for intranasal use 1 2005 [id number] 111 [employer] (MED) complet ed influenza virus vaccine, live, attenuate d, for intranasa l use [facility] influenza virus vaccine, whole virus 2004 [id number] 16 sanofi pasteur complet ed influenza virus vaccine, whole virus 08/07/05 Given Ambulat ory Pharmac y influenza virus vaccine,split 2004 [id number] 15 sanofi pasteur complet ed influenza virus vaccine,s plit 08/07/05 Given Ambulat ory Pharmac y influenza virus vaccine, split virus (incl. purified surface antigen)-reti red CODE 1 2004 [id number] 15 Sanofi Pasteur ([facility]) complet ed influenza virus vaccine, split virus (incl. purified surface antigen)- retired CODE DoD influenza virus vaccine, whole virus 1 2004 [id number] 16 Sanofi Pasteur ([facility]) complet ed influenza virus vaccine, whole virus DoD influenza virus vaccine, live 2003 [id number] 111 [employer] comple t ed influenza virus vaccine, live 10/15/04 Given Ambulat ory Pharmac y influenza virus vaccine, live, attenuated, for intranasal use 0 2003 [id number] 111 [employer] (MED) complet ed influenza virus vaccine, live, attenuate d, for intranasa l use [facility] influenza virus vaccine, whole virus 2002 [id number] 16 [employer]is [employer] complet ed influenza virus vaccine, whole virus 07/31/03 Given Ambulat ory Pharmac y influenza virus vaccine, whole virus 0 2002 [id number] 16 Maikel (EVN) complet ed influenza virus vaccine, whole virus DoD influenza virus vaccine, whole virus 2001 [id number] 16 sanofi [facility] complet ed influenza virus vaccine, whole virus 01/11/02 Given Ambulat ory Pharmac y influenza virus vaccine, whole virus 0 2001 [id number] 16 Sanofi Pasteur (PMC) complet ed influenza virus vaccine, whole virus DoD influenza virus vaccine, whole virus 2000 [id number] 16 [facility] complet ed influenza virus vaccine, whole virus 11/03/00 Given Ambulat ory Pharmac y influenza virus vaccine, whole virus 0 2000 [id number] 16 [facility] ([place]) complet ed influenza virus vaccine, whole virus DoD influenza virus vaccine, whole virus 1999 16 complet ed influenza virus vaccine, whole virus 07/18/00 Given Ambulat ory Pharmac y influenza virus vaccine, whole virus 0 1999 16 () complet ed influenza virus vaccine, whole virus DoD tuberculin purified protein derivative 1999 [id number] 96 [facility] complet ed tuberculi n purified protein derivativ e 07/02/00 Given Ambulat ory Pharmac y yellow fever vaccine 1999 37 complet ed yellow fever vaccine 07/02/00 Given Ambulat ory Pharmac y yellow fever vaccine 0 1999 37 () complet ed yellow fever vaccine DoD influenza virus vaccine, whole virus 1999 [id number] 16 [facility] complet ed influenza virus vaccine, whole virus 02/25/00 Given Ambulat ory Pharmac y influenza virus vaccine, whole virus 0 1999 [id number] [facility] (CON) complet ed influenza virus vaccine, whole [...] vaccine, adult dosage DoD anthrax vaccine 1998 [id number] [employer] complet ed anthrax vaccine 08/08/99 Given Ambulat ory Pharmac y anthrax vaccine 5 1998 [id number] 24 [employer] [place] ([facility]) complet ed anthrax vaccine DoD influenza virus vaccine,split 1998 [id number] 15 [facility] complet ed influenza virus vaccine,s plit 08/05/99 Given Ambulat ory Pharmac y influenza virus vaccine, split virus (incl. purified surface antigen)-reti red CODE 0 1998 [id number] [facility] influenza virus vaccine, split virus (incl. purified surface antigen)- retired CODE DoD typhoid vaccine, inactivated 1998 101 complet ed typhoid vaccine, inactivat ed 07/22/99 Given Ambulat ory Pharmac y meningococcal polysaccharid e (MPSV4) [id number] 32 [facility] complet ed meningoco ccal polysacch aride (MPSV4) 07/22/99 Given Ambulat ory Pharmac y tetanus-dipht h toxoids (Td) adult/adol 1998 [id number] 09 [facility] complet ed tetanus-d iphth toxoids (Td) adult/ado l 07/22/99 Given Ambulat ory Pharmac y tetanus and diphtheria toxoids, adsorbed, preservative free, for adult use (2 Lf of tetanus toxoid and 2 Lf of diphtheria toxoid) 0 1998 [id number] 09 [facility] (CON) complet ed tetanus and diphtheri a toxoids, adsorbed, preservat daniel free, for adult use (2 Lf of tetanus toxoid and 2 Lf of diphtheri a toxoid) [facility] meningococcal polysaccharid e vaccine (MPSV4) 0 [id number] [facility] meningoco ccal polysacch aride vaccine (MPSV4) [facility] typhoid vaccine, parenteral, other than acetone-kille d, dried 0 1998 41 () complet ed typhoid vaccine, parentera l, other than acetone-k illed, dried DoD anthrax vaccine 1998 UNKNOWN 24 [employer] complet ed anthrax vaccine 02/14/99 Given Ambulat ory Pharmac y anthrax vaccine 4 1998 UNKNOWN 24 [employer] [place] (MIP) complet ed anthrax vaccine DoD hepatitis [...] 2 1998 UNKNOWN 24 [employer] [place] (MIP) complet ed anthrax vaccine DoD anthrax vaccine 1998 UNKNOWN 24 [employer] complet ed anthrax vaccine 12/26/98 Given Ambulat ory Pharmac y anthrax vaccine 1 1998 UNKNOWN 24 [employer] [place] (MIP) complet ed anthrax vaccine DoD influenza virus vaccine, whole virus [id number] 16 complet ed influenza virus vaccine, whole [...] DoD influenza virus vaccine, whole virus 0 [id number] [id number] 16 (MV) complet ed influenza virus vaccine, whole virus DoD hepatitis A adult vaccine 1996 52 complet ed hepatitis A adult vaccine 09/10/97 Given Ambulat ory Pharmac y influenza virus vaccine, whole virus 19961400 [id number] 16 complet ed influenza virus vaccine, whole virus 09/10/97 Given Ambulat ory Pharmac y influenza virus vaccine, whole virus 0 19963294 [id number] 16 (MV) complet ed influenza virus vaccine, whole virus DoD hepatitis A vaccine, adult dosage 1 1996 52 () complet ed hepatitis A vaccine, adult dosage DoD typhoid, parenteral, AKD 1994 - Unknown complet ed typhoid, parentera l, AKD 12/29/94 Given Ambulat ory Pharmac y typhoid vaccine, parenteral, acetone-kille d, dried ([place] ) 1 1994 - Unknown (UNK) comple t ed typhoid vaccine, parentera l, acetone-k illed, dried ([place] ) DoD meningococcal polysaccharid e (MPSV4) 19903905 [id number] 32 Unknown complet ed meningoco ccal polysacch aride (MPSV4) 04/10/91 Given Ambulat ory Pharmac y meningococcal polysaccharid e vaccine (MPSV4) 0 [id number] [id number] 32 Unknown (UNK) comple t ed meningoco ccal polysacch aride vaccine (MPSV4) DoD meningococcal polysaccharid e (MPSV4) 1990 32 complet ed meningoco ccal polysacch aride (MPSV4) 11/10/90 Given Ambulat ory Pharmac y meningococcal polysaccharid e vaccine (MPSV4) 0 1990 32 () complet ed meningoco ccal polysacch aride vaccine (MPSV4) DoD yellow fever vaccine 19888651 [id number] 37 [employer] complet ed yellow fever vaccine 04/30/89 Given Ambulat ory Pharmac y yellow fever vaccine 0 19886139 1786448 37 Oscar-Umair (Inactive) ([place]) complet ed yellow fever vaccine DoD poliovirus vaccine, live, oral 1988 02 complet ed polioviru s vaccine, live, oral 04/27/89 Given Ambulat ory Pharmac y tetanus-dipht h toxoids (Td) adult/adol 1988 09 complet ed tetanus-d iphth toxoids (Td) adult/ado l 7/11/89 Given Ambulat ory Pharmac y trivalent poliovirus [...] Jun 06, 2024 02:27 PM Reporting Lab: [facility] [address] [address] Performing Lab: [facility] [address] [address] [facility] RENAL PANEL CREATININE [MASS/VOLU ME] IN SERUM OR PLASMA 1.28 mg/dL 0.7 - 1.3 06/06 Specimen Type: PLASMA Comment: No hemolysis noted. Ordering Provider: RONNIE,KAITLI N T Report Released Date/Time: Jun 06, 2024 02:27 PM Reporting Lab: [facility] [address] [address] Performing Lab: [facility] [address] [place] [address] [facility] RENAL PANEL UREA NITROGEN [MASS/VOLU ME] IN SERUM OR PLASMA 14.2 mg/dL 9.0 - 25.0 06/06 Specimen Type: PLASMA Comment: No hemolysis noted. Ordering Provider: MONAE TRUJILLO Report Released Date/Time: Jun 06, 2024 02:27 PM Reporting Lab: [address] [address] Performing Lab: [address] [address] [facility] RENAL PANEL GLUCOSE [MASS/VOLU ME] IN SERUM OR PLASMA 94 mg/dL 72 - 99 06/06 Specimen Type: PLASMA Comment: No hemolysis noted. Ordering Provider: MONAE TRUJILLO Report Released Date/Time: Jun 06, 2024 02:27 PM Reporting Lab: [address] [address] Performing Lab: [address] [address] [facility] RENAL PANEL SODIUM [MOLES/VOL UME] IN SERUM OR PLASMA 140 meq/L 136 - 145 06/06 Specimen Type: PLASMA Comment: No hemolysis noted. Ordering Provider: MONAE TRUJILLO Report Released Date/Time: Jun 06, 2024 02:27 PM Reporting Lab: [place] [address] [address] Performing Lab: [address] [address] [facility] RENAL PANEL POTASSIUM [MOLES/VOL UME] IN SERUM OR PLASMA 3.8 meq/L 3.5 - 5 06/06 Specimen Type: PLASMA Comment: No hemolysis noted. Ordering Provider: MONAE TRUJILLO Report Released Date/Time: Jun 06, 2024 02:27 PM Reporting Lab: [address] [address] Performing Lab: [address] [address] [facility] RENAL PANEL CHLORIDE [MOLES/VOL UME] IN SERUM OR PLASMA 107 meq/L 98 - 107 06/06 Specimen Type: PLASMA Comment: No hemolysis noted. Ordering Provider: MONAE TRUJILLO Report Released Date/Time: Jun 06, 2024 02:27 PM Reporting Lab: [address] [address] Performing Lab: [address] [address] [facility] RENAL PANEL CARBON DIOXIDE, TOTAL [MOLES/VOL UME] IN SERUM OR PLASMA 23 meq/L 22 - 31 06/06 Specimen Type: PLASMA Comment: No hemolysis noted. Ordering Provider: MONAE TRUJILLO Report Released Date/Time: Jun 06, 2024 02:27 PM Reporting Lab: [address] [address] Performing Lab: [address] [address] [facility] RENAL PANEL CALCIUM [MASS/VOLU ME] IN SERUM OR PLASMA 9.5 mg/dL 8.4 - 10.4 06/06 Specimen Type: PLASMA Comment: No hemolysis noted. Ordering Provider: MONAE TRUJILLO Report Released Date/Time: Jun 06, 2024 02:27 PM Reporting Lab: [address] [address] Performing Lab: [address] [address] [facility] RENAL PANEL PHOSPHATE [MASS/VOLU ME] IN SERUM OR PLASMA 3.1 mg/dL 2.3 - 4.7 06/06 Specimen Type: PLASMA Comment: No hemolysis noted. Ordering Provider: MONAE TRUJILLO Report Released Date/Time: Jun 06, 2024 02:27 PM Reporting Lab: [address] [address] Performing Lab: [address] [address] [facility] RENAL PANEL ALBUMIN [MASS/VOLU ME] IN SERUM OR PLASMA 4.6 g/dL 3.4 - 5 06/06 Specimen Type: PLASMA Comment: No hemolysis noted. Ordering Provider: MONAE TRUJILLO Report Released Date/Time: Jun 06, 2024 02:27 PM Reporting Lab: [address] [address] Performing Lab: [address] [address] [facility] RENAL PANEL GLOMERULAR FILTRATION RATE/1.73 SQ M.PREDICTE D [VOLUME RATE/AREA] IN SERUM, PLASMA OR BLOOD BY CREATININE -BASED FORMULA (CKD-EPI 2020) 63.3 60 06/06 Specimen Type: PLASMA Comment: No hemolysis noted. Ordering Provider: MONAE TRUJILLO Report Released Date/Time: Jun 06, 2024 02:27 PM Reporting Lab: [address] [address] Performing Lab: [address] [address] [facility] CBC LEUKOCYTES [#/VOLUME] IN BLOOD BY AUTOMATED COUNT 6.8 10*3/uL 3.6 - 11.2 06/06 Specimen Type: BLOOD No comment entered. Ordering Provider: MONAE TRUJILLO Report Released Date/Time: Jun 06, 2024 02:27 PM Reporting Lab: [address] [address] Performing Lab: [address] [address] [facility] CBC ERYTHROCYT ES [#/VOLUME] IN BLOOD BY AUTOMATED COUNT 5.39 10*6/uL 4.10 - 5.70 06/06 Specimen Type: BLOOD No comment entered. Ordering Provider: MONAE TRUJILLO Report Released Date/Time: Jun 06, 2024 02:27 PM Reporting Lab: [address] [address] Performing Lab: [address] [address] [facility] CBC HEMOGLOBIN [MASS/VOLU ME] IN BLOOD 17.3 g/dL 13.1 - 16.8 06/06 H Specimen Type: BLOOD No comment entered. Ordering Provider: MONAE TRUJILLO Report Released Date/Time: Jun 06, 2024 02:27 PM Reporting Lab: [address] [address] Performing Lab: [address] [address] [facility] CBC HEMATOCRIT [VOLUME FRACTION] OF BLOOD 49.8 38.2 - 48.4 06/06 H Specimen Type: BLOOD No comment entered. Ordering Provider: MONAE TRUJILLO Report Released Date/Time: Jun 06, 2024 02:27 PM Reporting Lab: [address] [address] Performing Lab: [address] [address] [facility] CBC MCV [ENTITIC VOLUME] BY AUTOMATED COUNT 92.4 fL 80.0 - 100.0 06/06 Specimen Type: BLOOD No comment entered. Ordering Provider: MONAE TRUJILLO Report Released Date/Time: Jun 06, 2024 02:27 PM Reporting Lab: [address] [address] Performing Lab: [address] [address] [facility] CBC MCH [ENTITIC MASS] BY AUTOMATED COUNT 32.1 pg 27.0 - 34.0 06/06 Specimen Type: BLOOD No comment entered. Ordering Provider: MONAE TRUJILLO Report Released Date/Time: Jun 06, 2024 02:27 PM Reporting Lab: [address] [address] Performing Lab: [address] [address] [facility] CBC MCHC [MASS/VOLU ME] BY AUTOMATED COUNT 34.7 g/dL 33.0 - 36.0 06/06 Specimen Type: BLOOD No comment entered. Ordering Provider: MONAE TRUJILLO Report Released Date/Time: Jun 06, 2024 02:27 PM Reporting Lab: [address] [address] Performing Lab: [address] [address] [facility] CBC PLATELETS [#/VOLUME] IN BLOOD BY AUTOMATED COUNT 282 10*3/uL 150 - 400 06/06 Specimen Type: BLOOD No comment entered. Ordering Provider: MONAE TRUJILLO Report Released Date/Time: Jun 06, 2024 02:27 PM Reporting Lab: [address] [address] Performing Lab: [address] [address] [facility] CBC PLATELET MEAN VOLUME [ENTITIC VOLUME] IN BLOOD BY AUTOMATED COUNT 10.4 fL 7.5 - 11.2 06/06 Specimen Type: BLOOD No comment entered. Ordering Provider: MONAE TRUJILLO Report Released Date/Time: Jun 06, 2024 02:27 PM Reporting Lab: [address] [address] Performing Lab: [address] [address] [facility] CBC ERYTHROCYT E DISTRIBUTI ON WIDTH [RATIO] BY AUTOMATED COUNT 12.5 11.8 - 15.1 06/06 Specimen Type: BLOOD No comment entered. Ordering Provider: MONAE TRUJILLO Report Released Date/Time: Jun 06, 2024 02:27 PM Reporting Lab: [facility] [address] [place] [phone] Performing Lab: [facility] [address] [place] [phone] [facility] CBC LYMPHOCYTE S/100 LEUKOCYTES IN BLOOD BY AUTOMATED COUNT 23 06/06 Specimen Type: BLOOD No comment entered. Ordering Provider: MONAE TRUJILLO Report Released Date/Time: Jun 06, 2024 02:27 PM Reporting Lab: [address] [address] Performing Lab: [facility] [address] [place] [phone] [facility] CBC MONOCYTES/ 100 LEUKOCYTES IN BLOOD BY AUTOMATED COUNT 10 06/06 Specimen Type: BLOOD No comment entered. Ordering Provider: MONAE TRUJILLO Report Released Date/Time: Jun 06, 2024 02:27 PM Reporting Lab: [address] [address] Performing Lab: [facility] [address] [place] [phone] [facility] CBC NEUTROPHIL S/100 LEUKOCYTES IN BLOOD BY AUTOMATED COUNT 64 06/06 Specimen Type: BLOOD No comment entered. Ordering Provider: MONAE TRUJILLO Report Released Date/Time: Jun 06, 2024 02:27 PM Reporting Lab: [address] [address] Performing Lab: [facility] [address] [place] [phone] [facility] CBC EOSINOPHIL S/100 LEUKOCYTES IN BLOOD BY AUTOMATED COUNT 2 06/06 Specimen Type: BLOOD No comment entered. Ordering Provider: MONAE TRUJILLO Report Released Date/Time: Jun 06, 2024 02:27 PM Reporting Lab: [address] [phone] Performing Lab: [address] [address] [facility] CBC BASOPHILS/ 100 LEUKOCYTES IN BLOOD BY AUTOMATED COUNT 1 06/06 Specimen Type: BLOOD No comment entered. Ordering Provider: MONAE TRUJILLO Report Released Date/Time: Jun 06, 2024 02:27 PM Reporting Lab: [address] [address] Performing Lab: [address] [phone] [facility] CBC LYMPHOCYTE S [#/VOLUME] IN BLOOD BY AUTOMATED COUNT 1.56 10*3/uL 0.77 - 4.50 06/06 Specimen Type: BLOOD No comment entered. Ordering Provider: MONAE TRUJILLO Report Released Date/Time: Jun 06, 2024 02:27 PM Reporting Lab: [address] [address] Performing Lab: [address] [address] [facility] CBC MONOCYTES [#/VOLUME] IN BLOOD BY AUTOMATED COUNT 0.65 10*3/uL 0.19 - 0.80 06/06 Specimen Type: BLOOD No comment entered. Ordering Provider: MONAE TRUJILLO Report Released Date/Time: Jun 06, 2024 02:27 PM Reporting Lab: [address] [address] Performing Lab: [address] [address] [facility] CBC NEUTROPHIL S [#/VOLUME] IN BLOOD BY AUTOMATED COUNT 4.37 10*3/uL 2.10 - 8.00 06/06 Specimen Type: BLOOD No comment entered. Ordering Provider: MONAE TRUJILLO Report Released Date/Time: Jun 06, 2024 02:27 PM Reporting Lab: [place] [address] Performing Lab: [place] [id number] CBC EOSINOPHIL S [#/VOLUME] IN BLOOD BY AUTOMATED COUNT 0.14 10*3/uL 0.00 - 0.60 06/06 Specimen Type: BLOOD No comment entered. Ordering Provider: MONAE TRUJILLO Report Released Date/Time: Jun 06, 2024 02:27 PM Reporting Lab: [place] [address] Performing Lab: [address] CBC BASOPHILS [#/VOLUME] IN BLOOD BY AUTOMATED COUNT 0.08 10*3/uL 0.00 - 0.20 06/06 Specimen Type: BLOOD No comment entered. Ordering Provider: MONAE TRUJILLO Report Released Date/Time: Jun 06, 2024 02:27 PM Reporting Lab: [place] [address] Performing Lab: [address] PROST. SPECIFIC AG.(PB-S TL) PROSTATE SPECIFIC AG [...] 2024 02:27 PM Reporting Lab: [place] [address] Performing Lab: [address] [phone] [place] [address] HIV COMBO FOURTH GENERATI ON (STL) HIV 1+2 AB+HIV1 P24 AG [PRESENCE] IN SERUM OR PLASMA BY IMMUNOASSA Y Nonreact daniel 06/06 Specimen Type: SERUM No comment entered. Ordering Provider: MONAE TRUJILLO Report Released Date/Time: Jun 06, 2024 02:27 PM Reporting Lab: [place] [address] Performing Lab: [address] [phone] [place] [address] HEP C Ab HCV Ab (L) HEPATITIS [...] Jun 06, 2024 02:27 PM Reporting Lab: [address] [address] Performing Lab: [phone] [place] [address] HGA1C HEMOGLOBIN A1C/HEMOGL OBIN.TOTAL IN BLOOD 5.1 4.0 - 6.0 06/06 Specimen Type: BLOOD No comment entered. Ordering Provider: MONAE TRUJILLO Report Released Date/Time: Jun 06, 2024 02:27 PM Reporting Lab: [address] [address] Performing Lab: [address] [phone] [place] [address] LIPID PANEL (STL) CHOLESTERO L [MASS/VOLU ME] IN SERUM OR PLASMA 186 mg/dL 0 - 200 06/06 Specimen Type: PLASMA Comment: No hemolysis noted. Ordering Provider: MONAE TRUJILLO Report Released Date/Time: Jun 06, 2024 02:27 PM Reporting Lab: [address] [address] Performing Lab: [address] [address] [facility] LIPID PANEL (STL) TRIGLYCERI DE [MASS/VOLU ME] IN SERUM OR PLASMA 183 mg/dL 0 - 150 06/06 H Specimen Type: PLASMA Comment: No hemolysis noted. Ordering Provider: MONAE TRUJILLO Report Released Date/Time: Jun 06, 2024 02:27 PM Reporting Lab: [address] [address] Performing Lab: [address] [address] [facility] LIPID PANEL (STL) CHOLESTERO L IN LDL [MASS/VOLU ME] IN SERUM OR PLASMA BY SEJAL N 106 mg/dL 06/06 Specimen Type: PLASMA Comment: No hemolysis noted. Ordering Provider: MONAE TRUJILLO Report Released Date/Time: Jun 06, 2024 02:27 PM Reporting Lab: [address] [address] Performing Lab: [address] [address] [facility] LIPID PANEL (STL) CHOLESTERO L IN HDL [MASS/VOLU ME] IN SERUM OR PLASMA 43 mg/dL 40 06/06 Specimen Type: PLASMA Comment: No hemolysis noted. Ordering Provider: MONAE TRUJILLO Report Released Date/Time: Jun 06, 2024 02:27 PM Reporting Lab: [address] [address] Performing Lab: [address] [address] [facility] Vital Signs Combined list of inpatient and outpatient Vital Signs from Department of Defense and Veterans Affairs, ranging from 12 months to all on record, depending upon the facility. Vital Sign Value Date Comments Source WEIGHT 208 04/19/2025 15:38:13 [facility] BMI 31 kg/m2 04/19/2025 15:38:13 [facility] SYSTOLIC BLOOD PRESSURE 162 01/23/2025 14:49:23 [facility] DIASTOLIC BLOOD PRESSURE 91 01/23/2025 14:49:23 [facility] PULSE OXIMETRY 95 01/23/2025 14:49:23 [facility] WEIGHT 226 01/23/2025 14:49:23 [facility] BMI 33 kg/m2 01/23/2025 14:49:23 [facility] PAIN 0 01/23/2025 14:49:23 [facility] HEIGHT 69 01/23/2025 14:49:23 [facility] TEMPERATURE 98.6 01/23/2025 14:49:23 [facility] PULSE 74 01/23/2025 14:49:23 [facility] RESPIRATION 20 01/23/2025 14:49:23 [facility] SYSTOLIC BLOOD PRESSURE 170 06/06/2024 13:23:03 [facility] DIASTOLIC BLOOD PRESSURE 98 06/06/2024 13:23:03 [facility] PULSE OXIMETRY 96 06/06/2024 13:23:03 [facility] WEIGHT 224.3 06/06/2024 13:23:03 [facility] BMI 33 kg/m2 06/06/2024 13:23:03 [facility] PAIN 0 06/06/2024 13:23:03 [facility] HEIGHT 69 06/06/2024 13:23:03 [facility] TEMPERATURE 98.6 06/06/2024 13:23:03 [facility] PULSE 61 06/06/2024 13:23:03 [facility] RESPIRATION 18 06/06/2024 13:23:03 [facility] Encounters Combined list of: 1) Encounters from Department of [facility] Affairs facilities going backup to the last 18 months, not all [place] inpatient encounters are included; 2) Encounters from the Department of Defense facilities going backup to 280 months. Location Location Details Encounter Type Encounter Number Reason For Visit Attending Provider ADM Date DC Date Status Disposition Source [facility]) OUTPATIENT [id number] Part 2, flight physica l ARMIDA Dodd A 01/05 Released w/o Limitations [facility](F [facility] e Group Practic e) [facility]) OUTPATIENT [id number] Continu ing cold symptom s ABDIRIZAK Watson A 01/29 Released w/o Limitations [facility] light Medicin e Group Practic e) [facility]) OUTPATIENT [id number] PART II PHY-mjj BAUTISTA DYSON A 09/21 Released w/o Limitations [facility](F light Medicin e Group Practic e) [facility] [employer]([facility] light [facility] [employer] [facility]) OUTPATIENT [id number] PURNIMAIN G RAY ARCE 01/22 Released with Work/Duty Limitations [employer] [place] [employer] ([facility]light Medicin e [employer] [facility]) [employer](F light Medicine [employer] [facility]) OUTPATIENT [id number] PHA WING KEHINDE DUMONT E 01/07 Released w/o Limitations [employer] [place] [employer] (Flight Medicin e [facility]) [employer](O ptometry Clinic [facility]) OUTPATIENT [id number] Color Vision MILLY OLIVER 01/07 Released w/o Limitations [employer] [place] [employer] [employer] ([facility]) [employer] [employer](F light Medicine [facility]) OUTPATIENT [id number] VISIT PKF CHRISTENSE N, KEHINDE E 02/02 Released w/o Limitations [employer] [employer] (Flight Medicin e [facility]) [employer] [employer](F light Medicine [facility]) TELE CONSULT [id number] discuss situati on for relaxat ion and meds. CHRISTENSE N, KEHINDE E 03/11 [employer] [employer] (Flight Medicin e 22 [facility]) [employer] [employer](F light Medicine 22 [facility]) TELE CONSULT [id number] discuss ion CHRISTENSE N, KEHINDE E 03/17 [employer] [employer] (Flight Medicin e 22 MD[facility]) [employer] [place] [employer](F light Medicine 22 [facility]) OUTPATIENT [id number] PHA WING EYE 0930 [facility] VICKIE CHAKRABORTY Bren 11/09 Released w/o Limitations [employer] [employer] (Flight Medicin e 22 [facility]) [employer] [place] [employer]([facility] pt[facility]) OUTPATIENT [id number] [facility] CC- Routine Exam TYSHAWN RON 11/09 Released w/o Limitations [employer] [employer] ([facility]) [employer] [place] [employer]([facility]) OUTPATIENT [id number] TYSHAWN RON A 11/14 Released w/o Limitations [employer] [employer] ([facility]) [employer] [place] ([facility])(Fam adenike Practice Non-GME FHI1) OUTPATIENT [id number] Medical Right Start CARTER CISNEROS 01/01 Released w/o Limitations [employer] [place] ([facility])(F amily Practic e Non-GME FHI1) [employer] MARISSAJenni ([facility])([facility] tt Flight Medicine Tm) OUTPATIENT [id number] sHECTOR Dasilva 03/15 Released w/o Limitations [employer] [place] ([facility])(S cott [employer] Medicin e Tm) [employer] B ([facility])([facility] tt Flight Medicine Tm) OUTPATIENT [id number] ZONIA Ashley 07/06 Released w/o Limitations [employer] [place] ([facility])(S cott Flight Medicin e Tm) [employer] [place] ([facility])(Phy sical Therapy) OUTPATIENT [id number] ANKLE SPRAIN RIGHT DELLA BANERJEE Meño 07/18 Released w/o Limitations [employer] [place] ([facility])(P hysical Therapy ) [facility] [employer] [facility])([facility] Flight Medicine Tm) OUTPATIENT [id number] S.CAl RTFS HECTOR COLEMAN A 07/19 Released w/o Limitations [employer] [place] ([facility])(S cott Flight Medicin e Tm) [facility] B [facility])(Phy sical Therapy) OUTPATIENT [id number] DELLA BANERJEE R 08/01 Released w/o Limitations [facility] [place] ([facility])(P hysical Therapy ) [facility] [employer] [facility])([facility] tt Flight Medicine Tm) OUTPATIENT [id number] rec rev and 2766 trans WILI MONIQUE 09/07 Released w/o Limitations [employer] [place] ([facility])(S cott Flight Medicin e Tm) [employer] [facility])([facility] tt Flight Medicine Tm) OUTPATIENT [id number] 49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 Wu manzo review and review of optho visit results GRABIEL OTERO 04/11 Released w/o Limitations [employer] [place] ([facility])(S cott Flight Medicin e Tm) [facility] B ([facility])(Opt ometry) OUTPATIENT [id number] 3 mo f/u, [id number] , JUL DUNG ALBERTO Janny 06/12 Released w/o Limitations [facility] [employer] [place] ([facility])(O ptometr y) [facility] ([facility])([facility]) DENTAL [id number] Admin - Hyperte nsion consult DORENE BRADLEY 10/25 [facility] [place] ([facility])(D ental Clinic) [facility] [employer] [place] ([facility])([facility] Flight Medicine Tm) TELE CONSULT [id number] BP JANETT James 10/30 [facility] [place] ([facility])(S cott Flight Medicin e Tm) [facility] [employer] [place] ([facility])([facility] Flight Medicine Tm) OUTPATIENT [id number] S.C. sent from dental for bp HECTOR COLEMAN Yesika 10/31 Released w/o Limitations [facility] [employer] [place] ([facility])(S cott Flight Medicin e Tm) [facility] [place] ([facility])([facility] Flight Medicine Tm) TELE CONSULT [id number] JANETT Garner 11/01 [facility] [place] ([facility])(S cott Flight Medicin e Tm) [facility] [place] ([facility])([facility] Flight Medicine Tm) TELE CONSULT [id number] 1042 JANETT Arias 11/06 [facility] [place] ([facility])(S cott Flight Medicin e Tm) [facility] [place] ([facility])([facility] Flight Medicine Tm) TELE CONSULT [id number] JANETT Garner 11/19 [facility] [place] [facility])(S cott Flight Medicin e Tm) [employer] ([facility])([facility] Flight Medicine Tm) TELE CONSULT [id number] Referra l DUNG Lau 11/25 [employer] ([facility])(S cott Flight Medicin e Tm) [employer] ([facility])([facility] Flight Medicine Tm) TELE CONSULT [id number] Referra l JANETT James 11/28 [employer] ([facility])(S cott Flight Medicin e Tm) [employer] ([facility])([facility] Flight Medicine Tm) TELE CONSULT [id number] DUNG Bauer 12/05 [employer] ([facility])(S cott Flight Medicin e Tm) [employer] ([facility])([facility] Flight Medicine Tm) OUTPATIENT [id number] day 1 of 5 day bp check MELY WAI P 12/31 Released w/o Limitations [employer] ([facility])(S cott Flight Medicin e Tm) [employer] ([facility])([facility] Flight Medicine Tm) OUTPATIENT [id number] bp check day 2 JERARDO BRADEN W 01/01 Released w/o Limitations [employer] ([facility])(S cott Flight Medicin e Tm) [employer] ([facility])([facility] Flight Medicine Tm) OUTPATIENT [id number] phy. 229 0920 HECTOR COLEMAN A 01/02 Released w/o Limitations [employer] ([facility])(S cott Flight Medicin e Tm) [employer] ([facility])([facility] Flight Medicine Tm) OUTPATIENT [id number] day 4 of 5 day bp check JERARDO BRADEN W 01/03 Released w/o Limitations [employer] ([facility])(S cott Flight Medicin e Tm) [employer] ([facility])([facility] Flight Medicine Tm) OUTPATIENT [id number] day 5 of 5 day bp check HECTOR COLEMAN A 01/06 Released w/o Limitations [employer] [place] [facility])(S cott Flight Medicin e Tm) [employer] [facility])([facility] Flight Medicine Tm) TELE CONSULT [id number] Sleep study request ed by ACS LIBORIO KITCHEN 01/31 [employer] [facility] ([facility])(S cott Flight Medicin e Tm) [employer] [facility])([facility] Flight Medicine Tm) TELE CONSULT [id number] [facility] Appt JANETT CHAN 05/21 Referred for Appointment [employer] [facility] [place] [facility])(S cott Flight Medicin e Tm) [employer] [facility])([facility] Flight Medicine Tm) TELE CONSULT [id number] STAT Referra l JANETT CHAN 05/27 Referred for Appointment [employer] [place] [facility])(S cott Flight Medicin e Tm) [employer] [facility] Flight Medicine Tm) TELE CONSULT [id number] RTFS JANETT CHAN 07/21 Referred for Appointment [employer] [facility])(S cott Flight Medicin e Tm) [employer] [facility])([facility] Flight Medicine Tm) TELE CONSULT [id number] Med request RADHA DAMON 09/15 [employer] [facility])(S cott Flight Medicin e Tm) [employer] [facility])([facility] Flight Medicine Tm) OUTPATIENT [id number] S.C. High BP 160/114 ZONIA GILMORE 11/26 Released w/o Limitations [employer] [place] [facility])(S cott Flight Medicin e Tm) [employer] [facility])([facility] Flight Medicine Tm) OUTPATIENT [id number] 5 DAY BP CHECK ZONIA GILMORE 11/28 Released w/o Limitations [employer] [facility])(S cott Flight Medicin e Tm) [employer] [facility])([facility] Flight Medicine Tm) OUTPATIENT [id number] b/p check day 2 JESICA SPENCER 12/01 Released w/o Limitations [employer] [facility])(S cott Flight Medicin e Tm) [employer] ([facility])([facility] Flight Medicine Tm) OUTPATIENT [id number] WALK-IN BP 4TH DAY JESICA SPENCER R 12/02 Released w/o Limitations [employer] ([facility])(S cott Flight Medicin e Tm) [employer] ([facility])([facility] Flight Medicine Tm) OUTPATIENT [id number] HTN TORSTEN Boucher 12/18 Released w/o Limitations [employer] ([facility])(S cott Flight Medicin e Tm) [employer] ([facility])([facility] Flight Medicine Tm) TELE CONSULT [id number] Referra JANETT Hdez 12/22 Referred for Appointment [employer] ([facility])(S cott Flight Medicin e Tm) [employer] ([facility])([facility] Medicine Tm) TELE CONSULT [id number] abn CT- Scan finding JANETT CHAN 12/22 Referred for Appointment [employer] ([facility])(S cott Flight Medicin e Tm) [employer] ([facility])([facility] Medicine Tm) OUTPATIENT [id number] ANNUAL PHA WAI BOONE 12/26 Released w/o Limitations [employer] ([facility])(S cott Flight Medicin e Tm) [employer] ([facility])([facility] Medicine ) OUTPATIENT [id number] F/U PER TORSTEN MERCEDES 01/02 Released w/o Limitations [employer] ([facility])(S cott Flight Medicin e Tm) [employer] ([facility])([facility] Medicine Tm) TELE CONSULT [id number] abn MRI liver JANETT CHAN 01/05 Referred for Appointment [employer] ([facility])(S cott Flight Medicin e Tm) [facility] [employer] ([facility])(Opt ometry) OUTPATIENT [id number] visual field defect DUNG ALBERTO 01/06 Released w/o Limitations [employer] [facility] ([facility])(O ptometr y) [employer] [place] ([facility])([facility] Flight Medicine ) TELE CONSULT [id number] Labs/Ra ds JANETT CHAN R 01/29 Referred for Appointment [employer] [facility] ([facility])(S cott [facility] Medicin e Tm) [employer] [facility] ([facility])([facility] ) TELE CONSULT [id number] Referra JANETT Persaud R 02/16 Referred for Appointment [employer] [facility] ([facility])(S cott [facility] Medicin e Tm) [employer] [facility])([facility] ) OUTPATIENT [id number] RTFS ZONIA GILMORE Sb 02/16 Released w/o Limitations [employer] [facility] ([facility])(S cott [facility] Medicin e Tm) [employer] [facility] ([facility])([facility] ) TELE CONSULT [id number] JANETT Marquez R 03/10 Referred for Appointment [employer] [facility] ([facility])(S cott [facility] Medicin e Tm) [employer] [facility] ([facility])([facility] ) TELE CONSULT [id number] JANETT Calloway 03/19 Referred for Appointment [employer] [place] [facility] ([facility])(S cott [facility] Medicin e Tm) [employer] [facility])([facility] ) TELE CONSULT [id number] Referra JANETT Hdez 04/23 Referred for Appointment [employer] [place] [facility] ([facility])(S cott [facility] Medicin e Tm) [employer] [facility] ([facility])([facility] ) TELE CONSULT [id number] JANETT Marquez R 06/17 Referred for Appointment [employer] [facility] ([facility])(S cott Flight Medicin e Tm) [employer] [facility] ([facility])([facility] ) TELE CONSULT [id number] MedJANETT Whittaker R 08/13 Referred for Appointment [employer] ([facility])(S cott [facility] Medicin e Tm) [employer] [facility] ([facility])([facility] ) TELE CONSULT [id number] JANETT Calloway Meño 08/14 Referred for Appointment [facility])(S cott Flight Medicin e Tm) [facility])([facility] ) OUTPATIENT [id number] shouldISACC Suarez 09/14 Released w/o Limitations [address] [place] [address] Group [facility] ([facility])(S cott [facility] Medicin e Tm) [address] [place] [address] Group [facility] B [facility])([facility] ) TELE CONSULT [id number] [facility] SHELLY RUBIO 09/16 [facility] ([facility])(S cott Flight Medicin e Tm) [facility])(Phy sical Therapy) OUTPATIENT [id number] joint pain, localiz ed in the left shoulde TONI Kirk 09/30 Released w/o Limitations [facility] [place] ([facility])(P hysical Therapy ) [facility])(Phy sical Therapy) OUTPATIENT [id number] shoulde r CYNTHIA AHUJA 10/06 Released w/o Limitations [facility] ([facility])(P hysical Therapy ) [facility] [place] [facility])(Phy sical Therapy) OUTPATIENT [id number] left jayson COLIN Lyn 10/20 Released w/o Limitations [facility] ([facility])(P hysical Therapy ) [facility] Medical [facility])(Phy sical Therapy) OUTPATIENT [id number] left hsoulde CYNTHIA guerrier MENG 10/22 Released w/o Limitations [facility] ([facility])(P hysical Therapy ) [facility] [facility])(Phy sical Therapy) OUTPATIENT [id number] TONI ARNETT 11/03 Released w/o Limitations [address] [place] [address] Group [facility] [place] ([facility])(P hysical Therapy ) [facility] [place] ([facility])([facility] ) TELE CONSULT [id number] Notes Entered by: Mode CATES 16 Nov 2011 1632 ------- ------- ------- ------- -- Insomni CATHRYN Sutton 11/[address] [place] [address])(S [employer] [facility] Medicin e Tm) [address] [place] [address])(Phy sical Therapy) OUTPATIENT [id number] TONI Calvo 12/09 Released w/o Limitations [address] [place] [address])(P hysical Therapy ) [address] [place] [address])([facility] ) TELE CONSULT [id number] Notes Entered by: Mode CATES 16 Dec 2011 0741 ------- ------- ------- ------- -- Sleep Med Refill CATHRYN CATES [address] [place] [address])([facility] [employer] [facility] Medicin e Tm) [address] [place] [address])([facility] Medicine ) OUTPATIENT [id number] sleep issues TORSTEN IRVING 12/30 Released w/o Limitations [address] [place] [address])([facility] [employer] [facility] Medicin e ) [address] [place] [address])([facility] Medicine ) OUTPATIENT [id number] flight abhilash womack JELRIZA C 12/31 Released w/o Limitations [address] [place] [address])([facility] [employer] [facility] Medicin e Tm) [address] [place] [address])(Opt ometry) OUTPATIENT [id number] routine KIRK LINN 01/03 Released w/o Limitations [address] [place] [address])(O ptometr y) [address] [place] [address])([facility] Medicine ) TELE CONSULT [id number] Notes Entered by: JANETT CHAN 16 Mar 2012 1405 ------- ------- ------- ------- -- labs JANETT CHAN 03/16 Referred for Appointment [address] [place] [address])(S cott Flight Medicin e Tm) [facility])([facility] Tm) OUTPATIENT [id number] elbow pain ISACC KAPADIA 03/17 Released w/o Limitations [facility] [employer] [facility])(S cott Flight Medicin e Tm) [facility])(Phy sical Therapy) OUTPATIENT [id number] LATERAL EPICOND YLITIS (TENNIS ELBOW) LEFT ZONIA GOMEZ 04/25 Released w/o Limitations [facility])(P hysical Therapy ) [facility])([facility] ) TELE CONSULT [id number] Notes Entered by: JANETT CHAN 16 May 2012 1225 ------- ------- ------- ------- -- AURORA Whittaker 05/16 [facility])(S cott Flight Medicin e Tm) [address] [place] [address])(Phy sical Therapy) OUTPATIENT [id number] GOMEZZONIA 05/19 Released w/o Limitations [address] [place] [address] [facility])(P hysical Therapy ) [address] [place] [address])([facility] ) OUTPATIENT [id number] Retirem ent TORSTEN Bryan 05/23 Released w/o Limitations [facility])(S cott Flight Medicin e Tm) [address] [place] [address])([facility] Tm) TELE CONSULT [id number] Notes Entered by: YOMAIRA HEATON 07 Jul 2012 1709 ------- ------- ------- ------- -- Network Results - ZOEE NILA GY 07/06/12 ELMO CHAVARRIA 07/[address] [place] [address] [address] [facility])(S cott Flight Medicin e Tm) [address] [place] [address])(Sco tt Flight Medicine Tm) TELE CONSULT [id number] Notes Entered by: YOMAIRA HEATON 08 Jul 2012 0927 ------- ------- ------- ------- -- Network Results - GASTROE NTEROLO GY 07/05/12 CHAVARRIA ELMOLILLY OLEA 07/08 [facility] [place] ([facility])(S [facility] Flight Medicin e ) [facility] Outpatient Encounter [id number] 05/06 [facility] Outpatient Encounter [id number] 05/18 [facility] Outpatient Encounter [id number] 06/06 [facility] OFFICE O/P EST MOD 30 MIN [id number] Diagnos is: ICD-10- CM I10 Essenti al (primar y) hyperte nsion DAVINA PALM 06/06 [facility] Outpatient Encounter [id number] COY ALBERTO MMAsya E 06/13 [facility] [place] [id number] Diagnos is: ICD-10- CM E66.9 Obesity , unspeci fied SIGIFREDO MCDUFFIE 07/04 [facility] PSYTX W PT 45 MINUTES [id number] Diagnos is: ICD-10- CM F41.9 Anxiety disorde r, unspeci fied PEPITO GIRARD 08/03 [facility] Outpatient Encounter [id number] PEPITO GIRARD JACKSON 09/06 [facility] Outpatient Encounter [id number] PEPITO GIRARD JACKSON 10/19 [facility] Outpatient Encounter [id number] 10/19 [facility] Outpatient Encounter [id number] PEPITO GIRARD JACKSON 10/31 [facility] PSYTX W PT 30 MINUTES [id number] Diagnos is: ICD-10- CM F41.1 General ized anxiety disorde r PEPITO GIRARD JACKSON 11/30 [facility] Outpatient Encounter [id number] 12/19 [facility] MED NUTRITION INDIV SUBSEQ [id number] Diagnos is: ICD-10- CM E66.811 Obesity , class 1 NERY MARTIN Y R 01/10 [facility] Outpatient Encounter [id number] 01/10 [facility] Outpatient Encounter [id number] NERY MARTIN Y R 01/11 [facility] Outpatient Encounter [id number] PACE,JANUARY D 01/16 [facility] OFFICE O/P EST MOD 30 MIN [id number] Diagnos is: ICD-10- CM F41.1 General ized anxiety disorde r FLORENTIN RODRIGUEZY 01/23 [facility] Outpatient Encounter [id number] JONATHAN COUCH JENNIE T 01/25 [facility] Outpatient Encounter [id number] IZAJONATHANANALISA SCHNEIDER T 01/29 [facility] Outpatient Encounter [id number] 02/12 [facility] MED NUTRITION INDIV SUBSEQ [id number] Diagnos is: ICD-10- CM E66.811 Obesity , class 1 NYANZI,SIGIFREDO DARRYL L 04/19 [facility] Procedures Combined list of: 1) Procedures from Department of [facility] Affairs facilities going back up to thelast 18 months, not all [place] non-surgical procedures are included; 2) All procedures from the Department of Defense facilities. Procedure Procedure Type Code Date Perfomer Comments Sourc e No data available for this section [facility] SCREENING TEST, PURE TONE, AIR ONLY 2002 [facility] PROSTATE CANCER SCREENING; DIGITAL RECTAL EXAMINATION 2003 [facility] SCREENING TEST OF VISUAL ACUITY, QUANTITATIVE, BILATERAL 2007 [facility] DETERMINATION OF REFRACTIVE STATE 2007 [facility] VIS FUNCT SCREEN,AUTOMAT/SEMI -AUTOMAT BILAT QUANT DETERM VISUAL ACUITY,OCULAR ALIGN,COLOR VISION,PSEUDOISOCHR OMAT PLATES,& FIELD VIS (MAY INC ALL/SOME SCRN DETERM FOR CONTRAST SENSITIV,VIS UND GLARE) 2007 [facility] SCREENING TEST OF VISUAL ACUITY, QUANTITATIVE, BILATERAL 2006 [facility] SCREENING TEST, PURE TONE, AIR ONLY 2004 [facility] DETERMINATION OF REFRACTIVE STATE 2004 [facility] PROFESSIONAL SER FOR ALLERGEN IMMUNOTHER IN THE OFFICE/INSTITUTION OF THE PRESCRIBING PHYSICIAN/OTH QUALIFIED HEALTH BOWL TURNER,INCLUD ING PROVISION OF ALLERGENIC EXTRACT;2/MORE INJECTIONS 1999 [facility] THERAPEUTIC PROCEDURE, 1 OR MORE AREAS, EACH 15 MINUTES; THERAPEUTIC EXERCISES TO DEVELOP STRENGTH AND ENDURANCE, RANGE OF MOTION AND FLEXIBILITY 2011 [facility] PHYSICAL THERAPY EVALUATION 2011 [facility] FUNDUS PHOTOGRAPHY WITH INTERPRETATION AND REPORT 2011 [facility] COLOR VISION EXAMINATION, EXTENDED, EG, ANOMALOSCOPE OR EQUIVALENT 2011 [facility] THERAPEUTIC PROCEDURE, 1 OR MORE AREAS, EACH 15 MINUTES; THERAPEUTIC EXERCISES TO DEVELOP STRENGTH AND ENDURANCE, RANGE OF MOTION AND FLEXIBILITY 2011 [facility] PHYSICAL THERAPY RE-EVALUATION 2011 [facility]D THERAPEUTIC PROCEDURE,1 OR MORE AREAS,EACH 15 MINUTES;NEUROMUSCUL AR REEDUCATION OF MOVEMENT,BALANCE,CO ORDINATION,KINESTHE TIC SENSE,POSTURE,AND/O R PROPRIOCEPTION FOR SITTING AND/OR STANDING ACTIVITIES 2011 [facility] THERAPEUTIC PROCEDURE, 1 OR MORE AREAS, EACH 15 MINUTES; THERAPEUTIC EXERCISES TO DEVELOP STRENGTH AND ENDURANCE, RANGE OF MOTION AND FLEXIBILITY 2011 [facility] MANUAL THERAPY TECHNIQUES (EG, MOBILIZATION/ MANIPULATION, MANUAL LYMPHATIC DRAINAGE, MANUAL TRACTION), 1 OR MORE REGIONS, EACH 15 MINUTES 2010 [facility] THERAPEUTIC PROCEDURE, 1 OR MORE AREAS, EACH 15 MINUTES; MASSAGE, INCLUDING EFFLEURAGE, PETRISSAGE AND/OR TAPOTEMENT (STROKING, COMPRESSION, PERCUSSION) 2010 [facility] FITTING OF SPECTACLES, EXCEPT FOR APHAKIA; BIFOCAL 2010 [facility] ELECTROCARDIOGRAM, ROUTINE ECG WITH AT LEAST 12 LEADS; WITH INTERPRETATION AND REPORT 2010 [facility] BLOOD PRESSURE MEASURED (CKD)(DM) 2009 [facility] PURE TONE AUDIOMETRY (THRESHOLD); AIR ONLY 2009 [facility] BLOOD PRESSURE MEASURED (CKD)(DM) 2009 [facility] BLOOD PRESSURE MEASURED (CKD)(DM) 2009 [facility] SCANNING COMPUTERIZED OPHTHALMIC DIAGNOSTIC IMAGING, POSTERIOR SEGMENT, (EG, SCANNING LASER) WITH INTERPRETATION AND REPORT, UNILATERAL 2008 [facility] SCANNING COMPUTERIZED OPHTHALMIC DIAGNOSTIC IMAGING, POSTERIOR SEGMENT, (EG, SCANNING LASER) WITH INTERPRETATION AND REPORT, UNILATERAL 2008 [facility] TYPHOID VACCINE, CAPSULAR POLYSACCHARIDE (VICPS), FOR INTRAMUSCULAR USE 2008 [facility] THERAPEUTIC PROCEDURE, 1 OR MORE AREAS, EACH 15 MINUTES; THERAPEUTIC EXERCISES TO DEVELOP STRENGTH AND ENDURANCE, RANGE OF MOTION AND FLEXIBILITY 2007 [facility] EXERCISE EQUIPMENT 2007 [facility] Physical Medicine Physical Therapy Re-Evaluation Physical Medicine Physical Therapy Re-Evaluation 11948 2011 ZONIA GOMEZ [facility] Physical Therapy: ___ Se ion Segments, 15 Minutes Each Physical Therapy: ___ Session Segments, 15 Minutes Each 60496 2011 ZONIA GOMEZ Reviewed exercise techniques for stretching and eccentric strengthening. Reviewed his deep tissue massage. One-on-one therapeutic exercises x12 minutes [facility] Physical Therapy: ___ Se ion Segments, 15 Minutes Each Physical Therapy: ___ Session Segments, 15 Minutes Each 77917 2011 ZONIA GOMEZ Strengthening and ROM program under direct supervision x 15 minutes. Pt tolerated treatment well. [facility] Physical Therapy Neuromuscular Re-education Physical Therapy Neuromuscular Re-education 69356 2011 ZONIA GOMEZ neuromuscular retraining and eccentric strengthening under direct supervision x 10 minutes. Pt tolerated treatment well. [facility] Physical Medicine Physical Therapy Evaluation Physical Medicine Physical Therapy Evaluation 52215 2011 ZONIA GOMEZ [facility] Fundus Photography Fundus Photography 09581 2011 KIRK LINN Visual Moran Test Extended Examination Visual Moran Test Extended Examination 68573 2011 KIRK LINN Scanning Computerized Ophthalmic Diagnostic Imaging Optic Nerve Scanning Computerized Ophthalmic Diagnostic Imaging Optic Nerve 92463 2011 KIRK LINN [employer] Fitting Bifocals (Not For Aphakia) [employer] Fitting Bifocals (Not For Aphakia) 64842 2011 KIRK LINN Determination Of Refractive State Determination Of Refractive State 00000 2011 KIRK LINN Ophthalmological Prior Patient Start Comprehensive Care Ophthalmological Prior Patient Start Comprehensive Care 89947 2011 KIRK LINN Extensive Color Vision Testing Extensive Color Vision Testing 77477 2011 AURORA MELENDEZ Tonometry Tonometry 24897 2011 AURORA MELENDEZ [facility] Threshold Audiogram (Pure Tone) Threshold Audiogram (Pure Tone) 77604 2011 AURORA MELENDEZ [facility] Electrocardiogram Electrocardiogram 89313 12/31 AURORA MELENDEZ [facility] Visual Function Screening Visual Function Screening 06723 2011 AURORA MELENDEZ [facility] Screening Test Of Visual Acuity, Quantitative, Bilateral Screening Test Of Visual Acuity, Quantitative, Bilateral 02471 2011 AURORA MELENDEZ [facility] Physical Therapy: ___ Se ion Segments, 15 Minutes Each Physical Therapy: ___ Session Segments, 15 Minutes Each 53379 2011 TONI ARNETT Physical Therapy Mobilization Joint Physical Therapy Mobilization Joint 80735 2011 TONI ARNETT [facility] Physical Medicine Physical Therapy Re-Evaluation Physical Medicine Physical Therapy Re-Evaluation 79781 2011 TONI ARNETT Physical Medicine Physical Therapy Re-Evaluation Physical Medicine Physical Therapy Re-Evaluation 66720 2011 TONI ARNETT Physical Therapy Neuromuscular Re-education Physical Therapy Neuromuscular Re-education 68534 2011 LEIGHACYNTHIA Mckeon [facility] Physical Therapy Mobilization Joint Physical Therapy Mobilization Joint 73553 2011 [facility] Physical Therapy: ___ Se ion Segments, 15 Minutes Each Physical Therapy: ___ Session Segments, 15 Minutes Each 37561 2011 LEIGHACYNTHIA Mckeon [facility] Physical Therapy: ___ Se ion Segments, 15 Minutes Each Physical Therapy: ___ Session Segments, 15 Minutes Each 20400 2011 [facility] Mobilization Joint Physical Therapy Mobilization Joint 70258 2011 [place] Physical Therapy Neuromuscular Re-education Physical Therapy Neuromuscular Re-education 59585 2011 [place] [facility] Physical Therapy Mobilization Joint Physical Therapy Mobilization Joint 38038 2010 LEIGHACYNTHIA Mckeon [facility] Physical Therapy Neuromuscular Re-education Physical Therapy Neuromuscular Re-education 66260 2010 [facility] Physical Therapy: ___ Se ion Segments, 15 Minutes Each Physical Therapy: ___ Session Segments, 15 Minutes Each 88413 2010 CYNTHIA AHUJA [facility] Physical Therapy Ma age Physical Therapy Massage 23051 2010 TONI ARNETT Post shoulder stretch/massag e, IR and and x 15 min DoD Osteopathic Manip Treatment (OMT) 1-2 Body Regions Involved Osteopathic Manip Treatment (OMT) 1-2 Body Regions Involved [address] and T spine Ext Gr 5 DoD Physical Medicine Physical Therapy Evaluation Physical Medicine Physical Therapy Evaluation 22613 2010 TONI ARNETT [facility] [employer] Fitting Bifocals (Not For Aphakia) [employer] Fitting Bifocals (Not For Aphakia) 90025 2010 DUNG ALBERTO Determination Of Refractive State Determination Of Refractive State 21857 2010 DUNG ALBERTO Fundus Photography Fundus Photography 68028 2010 DUNG ALBERTO Scanning Computerized Ophthalmic Diagnostic Imaging Optic Nerve Scanning Computerized Ophthalmic Diagnostic Imaging Optic Nerve 45261 2010 DUNG ALBERTO Visual Moran Test Extended Examination Visual Moran Test Extended Examination 57065 2010 DUNG ALBERTO Ophthalmological Prior Patient Start Comprehensive Care Ophthalmological Prior Patient Start Comprehensive Care 97277 2010 DUNG ALBERTO ECG 12-Lead With Interpretation And Report ECG 12-Lead With Interpretation And Report 26166 2010 WAI BOONE Tonometry Tonometry 84665 2010 WAI BOONE Extensive Color Vision Testing Extensive Color Vision Testing 92563 2010 WAI BOONE Screening Test Of Visual Acuity, Quantitative, Bilateral Screening Test Of Visual Acuity, Quantitative, Bilateral 67625 2010 WAI BOONE Audiogram (Screening) Audiogram (Screening) 54265 2010 WAI BOONE A e ment & Intervention Blood Pre ure Measured 2009 WILI MONIQUE Threshold Audiogram (Pure Tone) Threshold Audiogram (Pure Tone) 34962 2009 HECTOR COLEMAN H1 Jung Visual Function Screening Visual Function Screening 76250 2009 HECTOR COLEMAN Corrected better than 20/20 bilateral Jung A e ment & Intervention Blood Pre ure Measured 2009 WILI MONIQUE A e ment & Intervention Blood Pre ure Measured 2009 WILI MONIQUE Jung Scanning Computerized Ophthalmic Diagnostic Imaging 2008 DUNG ALBERTO Visual Moran Test Extended Examination Visual Moran Test Extended Examination 17490 2008 DUNG ALBERTO Ophthalmological Prior Patient Start Intermediate Level Care Ophthalmological Prior Patient Start Intermediate Level Care 61218 2008 DUNG ALBERTO [employer] Fitting Bifocals (Not For Aphakia) [employer] Fitting Bifocals (Not For Aphakia) 92598 2008 DUNG ALBERTO Determination Of Refractive State Determination Of Refractive State 65598 2008 DUNG ALBERTO Corneal Pachymetry, Bilateral With Interpret And Report Corneal Pachymetry, Bilateral With Interpret And Report 03465 2008 DUNG ALBERTO Scanning Computerized Ophthalmic Diagnostic Imaging 2008 DUNG ALBERTO Fundus Photography Fundus Photography 72276 2008 DUNG ALBERTO Visual Moran Test Extended Examination Visual Moran Test Extended Examination 32723 2008 DUNG ALBERTO Ophthalmological New Patient Start Comprehensive Care Ophthalmological New Patient Start Comprehensive Care 08887 2008 DUNG ALBERTO Typhoid Vaccine Vi Capsular Polysaccharide, For Intramus Use Typhoid Vaccine Vi Capsular Polysaccharide, For Intramus Use 76437 2008 ZONIA GILMORE Extensive Color Vision Testing Extensive Color Vision Testing 30229 2008 ZONIA GILMORE Visual Function Screening Visual Function Screening 40657 2008 ZONIA GILMORE Screening Test Of Visual Acuity, Quantitative, Bilateral Screening Test Of Visual Acuity, Quantitative, Bilateral 68843 2008 ZONIA GILMORE Threshold Audiogram (Pure Tone) Threshold Audiogram (Pure Tone) 09922 2008 ZONIA GILMORE Physical Therapy: ___ Se ion Segments, 15 Minutes Each Physical Therapy: ___ Session Segments, 15 Minutes Each 87547 2007 DELLA BANERJEE Physical Medicine Physical Therapy Re-Evaluation Physical Medicine Physical Therapy Re-Evaluation 03977 2007 DELLA BANERJEE Exercise equipment 2007 DELLA BANERJEE Physical Therapy: ___ Se ion Segments, 15 Minutes Each Physical Therapy: ___ Session Segments, 15 Minutes Each 72212 2007 DELLA BANERJEE [facility] Physical Medicine Physical Therapy Evaluation Physical Medicine Physical Therapy Evaluation 66269 2007 DELLA BANERJEE [facility] Screening Test Of Visual Acuity, Quantitative, Bilateral Screening Test Of Visual Acuity, Quantitative, Bilateral 10262 2007 TYSHAWN RON [facility] [employer] Fitting Bifocals (Not For Aphakia) [employer] Fitting Bifocals (Not For Aphakia) 93351 2007 TYSHAWN RON Determination Of Refractive State Determination Of Refractive State 04610 2007 TYSHAWN RON [facility] Ophthalmological New Patient Start Comprehensive Care Ophthalmological New Patient Start Comprehensive Care 06404 2007 TYSHAWN RON [facility] Screening Test Of Visual Acuity, Quantitative, Bilateral Screening Test Of Visual Acuity, Quantitative, Bilateral 67629 2007 VICKIE CHAKRABORTY [facility] Threshold Audiogram (Pure Tone) Threshold Audiogram (Pure Tone) 39836 2007 VICKIE CHAKRABORTY [facility] ECG Performance of Tracing Only ECG Performance of Tracing Only 10536 2004 BAUTISTA DYSON [facility] Screening Test Of Visual Acuity, Quantitative, Bilateral Screening Test Of Visual Acuity, Quantitative, Bilateral [id number] 2004 BAUTISTA DYSON [facility] Threshold Audiogram (Pure Tone) Threshold Audiogram (Pure Tone) [id number] 2004 BAUT[facility]A DYSON [facility] ECG Interpretation And Report Only ECG Interpretation And Report Only [id number] 2004 BAUTISTA DYSON [facility] Social History Combined list of available smoking, tobacco, and other social history from [facility] Defense and Veterans [facility] facilities. Social History Type Response Date Comment [facility] e Tobacco smoking status NHIS VA-TOBACCO NEVER USED 06/06/2024 [facility] This section is an empty [...] Plan No data available for this section 06/05/2025 Ambulatory Pharmacy Plan of Care List of future care activities from Department of Veterans Affairs facilities. Additional future care activities may be listed in the Assessment and Plan section. Date/Time Care Activity Care Activity Detail Facili ty 10/29/2025 AMBULATORY - NONE AMBULATORY - NONE [facility] Functional Status Combined list of recent functional and cognitive assessments recorded at [facility] of Defense and [facility] Affairs (VA).AL Functional Geneva Measurement (FIM) Scale: 1 = Total Assistance (Subject = 0% +), 2 = Maximal Assistance (Subject = 25% +), 3 = Moderate Assistance (Subject = 50% +), 4 = Minimal Assistance (Subject = 75% +), 5 = Supervision, 6 = Modified Geneva (Device), 7 = Complete Geneva (Timely, Safely). Assessment Date/Time Source Assessment Type Assessment Skill Assessment Score Assessment Details No data available for this section
--- OUTSIDE RECORDS SUMMARY | 2025-06-05 09:59 | XMS_ITS | Clinical Summary ---
Author Organization [facility] Address [address] [place] [id number] Care Team Providers Care Paragliding Instructor Name Role Phone Humberto Lorenz MD Primary Care Provider [phone] Social History Tobacco Use Types Packs/Day Years [...] age to complete this topic Care Teams Paragliding Instructor Relationship Specialty Start Date End Date Humberto Lorenz MD [address] [place] [id number] PCP - General INTERNAL MEDICINE 10/13/23
--- OUTSIDE RECORDS SUMMARY | 2025-06-05 09:59 | XMS_ITS | Clinical Summary ---
Author Organization [facility] Address [address] [place] [address] Phone Care Team Providers Care Tacking Machine Operator Name Role Phone Michael Hamlin MD Primary Care Provider Allergies No known active allergies Medications lisinopril [...] of Treatment Not on file Care Teams Tacking Machine Operator Relationship Specialty Start Date End Date Michael Hamlin MD [address] [address] PCP - General Family Medicine 02/08/17
--- OUTSIDE RECORDS SUMMARY | 2025-06-05 09:59 | XMS_ITS | Clinical Summary ---
Author Organization [facility] Address [address] [address] Care Team Providers Care System Administration Manager Name Role Phone Unavailable Primary Care Provider Unavailabl e Source Comments [facility]non-owned Affiliates and Associated Physician Practices is amultiple site organization consisting of ambulatory clinics and hospital sitesin [place], [place], [place] and [place]. This disclosure is being madepursuant to the Care Everywhere program and may not contain all information available regarding this patient. Last updated 18.[facility] 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
== END 2025-06-05 09:35 | disposition home or self-care (01) ==
PROVIDERS: PCP Internal Medicine; Visit Provider Internal Medicine
DX: M25.511 Pain in right shoulder (principal)
CPT/HCPCS: 76882

== ENCOUNTER 2025-08-17 11:47 | Outpatient (CLI) | payer OTHER, SELFPAY ==
--- OUTSIDE RECORDS SUMMARY | 2025-08-17 11:51 | XMS_ITS | Clinical Summary ---
Author Organization [facility] Address [address] [place] [address] Phone Care Team Providers Care Stripe Marker Name Role Phone Michael Hamlin MD Primary [...] of Treatment Not on file Care Teams Stripe Marker Relationship Specialty Start Date End Date Michael Hamlin MD [address] [address] PCP - General Family Medicine 02/08/17
--- OUTSIDE RECORDS SUMMARY | 2025-08-17 11:51 | XMS_ITS | Clinical Summary ---
Author Organization [facility] Address [address] [place] [address] Care Team Providers Care Business Process Associate Name Role Phone Unavailable Primary Care Provider Unavailabl e Source Comments [facility],non-owned Affiliates and Associated Physician Practices is amultiple site organization consisting of ambulatory clinics and hospital sitesin [place], [place], [place] and [place]. This disclosure is being madepursuant to the Care Everywhere program and may not contain all information available regarding this patient. 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
--- OUTSIDE RECORDS SUMMARY | 2025-08-17 11:51 | XMS_ITS | Clinical Summary ---
Author Organization [facility] Address [address] [place] [address] Care Team Providers Care Commercial Relationship Manager Name Role Phone Humberto Lorenz MD Primary Care Provider [phone] Social History Tobacco Use Types Packs/Day Years [...] Additional history exists COVID-19 Vaccine ( season) 2025 07/30/2023, 10/08/2022, 01/31/2022, Additional history exists Influenza Adult (#1) 2025 07/30/2023, 09/25/2022, 08/21/2021, Additional history exists Hepatitis A Vaccines Completed 09/22/1999, 02/03/1999, 09/10/1997 Meningococcal Vaccine Aged Out 04/23/2008 , 09/22/1999, [...] age to complete this topic Care Teams Commercial Relationship Manager Relationship Specialty Start Date End Date Humebrto Lorenz MD [address] [place] [address] PCP - General INTERNAL MEDICINE 10/13/23
[2025-08-17 12:57] LABS: Hematocrit 45.4 % (42.0-52.0); Hemoglobin 16.2 g/dL (14.0-18.0); Immature Granulocyte Percent A 0.4 % (0-0.5); Lymphocytes Absolute Auto 1.79 K/mm3 (0.9-3.2); Mean Corpuscular HGB Conc 35.7 g/dl (32-36); Mean Corpuscular Hemoglobin 32.5 pg (26-34); Mean Corpuscular Volume 91.0 fl (80-100); Nucleated Red Blood Cells Absolute Auto 0.000 K/mm3 (0.0-0.012); Nucleated Red Blood Cells Perc 0.0 % (0.0-0.2); Platelet Count Result 268 k/mm3 (150-375); Red Blood Count 4.99 M/mm3 (4.6-6.20); White Blood Count 8.6 K/mm3 (4.5-10.0)
[2025-08-17 13:06] LABS: Add Urine Microscopic? NO; Appearance Urine Clear (Clear); Glucose Urine UA Negative (Negative); Leukocyte Esterase Ur Negative LEU/UL (Negative); Nitrate Urine Negative (Negative); Specific Grav Ur 1.006 (1.001-1.035)
[2025-08-17 13:08] LABS: Hemoglobin A1C 4.5 % (<5.7)
[2025-08-17 13:23] LABS: Alanine Aminotransferase 22 U/L (6-50); Albumin Level 4.2 g/dL (3.5-5.1); Alkaline Phosphatase 61 U/L (38-126); Anion Gap 8 mmol/L (4-12); Aspartate Amino Transferase 28 U/L (17-59); Bilirubin,Total 2.1 mg/dL (0.2-1.3); Blood Urea Nitrogen 14 mg/dL (9-20); Calcium 8.7 mg/dL (8.4-10.2); Carbon Dioxide 23 mmol/L (22-30); Chloride 105 mmol/L (98-107); Cholesterol 168 mg/dL (0-200); Estimated Glomerular Filt Rate > 60; Glucose 81 mg/dL (65-110); HDL Direct 49 mg/dL; Potassium 3.7 mmol/L (3.4-5.0); Sodium 136 mmol/L (137-145); Total Protein 6.9 g/dL (6.3-8.2); Triglycerides 153 mg/dL (<150)
[2025-08-17 13:42] LABS: Free T4 Free Thyroxine 1.21 ng/dL (0.78-2.19)
[2025-08-17 13:58] LABS: Thyroid Stimulating Hormone 1.050 uIU/mL (0.465-4.680)
== END 2025-08-17 11:48 | disposition home or self-care (01) ==
LOC: ANHLAB 11:49
PROVIDERS: PCP Internal Medicine; Visit Provider Internal Medicine
DX: Z13.1 Encounter for screening for diabetes mellitus (principal); Z13.29 Encounter for screening for other suspected endocrine disorder; I10 Essential (primary) hypertension; E55.9 Vitamin D deficiency, unspecified; E78.2 Mixed hyperlipidemia; Z79.899 Other long term (current) drug therapy
CPT/HCPCS: 36415; 80053; 80061; 81003; 82306; 83036; 84439; 84443; 85025

== ENCOUNTER 2025-09-17 08:59 | Outpatient (CLI) | payer OTHER, SELFPAY ==
--- NOTE | ~2025-09-17 | XR_ITS ---
XR cervical spine 4-5V Indication: M54.2 - Cervicalgia, pt states pain is poss stress related Comparison: None Findings: No fracture is identified, no subluxation with flexion and extension. Severe loss of disc height at C4-5 with partial fusion of the C5-6 disc space. Severe loss of disc height at C6-7 and C7-T1. Soft tissues unremarkable Impression: No acute abnormality. Reviewed, dictated and finalized at location P. AL CROP DUSTER Impression: No acute abnormality.
--- NOTE | ~2025-09-17 | XR_ITS ---
XR thoracic spine 3V Indication: M54.9 - Dorsalgia, unspecified Comparison: None Findings: The vertebral heights are intact. No fracture or subluxation. The disc heights are intact. Soft tissues unremarkable Impression: No acute abnormality. Reviewed, dictated and finalized at location P. MAN Impression: No acute abnormality.
--- OUTSIDE RECORDS SUMMARY | 2025-09-17 09:39 | XMS_ITS | Clinical Summary ---
Author Organization [facility] Address [address] [place] [address] Care Team Providers Care Freezer Laboratory Technician Name Role Phone Unavailable Primary Care Provider Unavailabl e Source Comments [facility],non-owned Affiliates and Associated Physician Practices is amultiple site organization consisting of ambulatory clinics and hospital sitesin [place], [place], [place] and [place]. This disclosure is being madepursuant to the Care Everywhere program and may not contain all information available regarding this patient. 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
--- OUTSIDE RECORDS SUMMARY | 2025-09-17 09:39 | XMS_ITS | Clinical Summary ---
Author Organization [facility] Address [address] [place] [address] Phone Care Team Providers Care Health Safety Coordinator Name Role Phone Michael Hamlin MD Primary Care Provider [phone] Allergies No known active allergies Medications lisinopril [...] of Treatment Not on file Care Teams Health Safety Coordinator Relationship Specialty Start Date End Date Michael Hamlin MD [address] [address] PCP - General Family Medicine 02/08/17
--- OUTSIDE RECORDS SUMMARY | 2025-09-17 09:39 | XMS_ITS | Clinical Summary ---
Author Organization [facility] Address [address] [place] [address] Care Team Providers Care Director Electronics Name Role Phone Humberto Lorenz MD Primary Care Provider [phone] Social History Tobacco Use Types Packs/Day Years [...] age to complete this topic Care Teams Director Electronics Relationship Specialty Start Date End Date Humberto Lorenz MD [address] [place] [address] PCP - General INTERNAL MEDICINE 10/13/23
== END 2025-09-17 09:00 | disposition home or self-care (01) ==
PROVIDERS: PCP Internal Medicine; Visit Provider Internal Medicine
DX: M54.2 Cervicalgia (principal); M54.6 Pain in thoracic spine
CPT/HCPCS: 72050; 72072